=== PATIENT | female | born 1975 | race Caucasian/White ===

== ENCOUNTER → 2016-05-11 | Outpatient (CLI) | payer MEDICAID ==
[~2016-05-11] MED LIST: ABILIFY5 MG PO; ADDERALL15 MG PO; ADDERALL20 MG PO; ADIPEX-P37.5 MG PO; AMBIEN 5MG TABLE5 MG PO; AMITIZA 8MCG8 MCG PO; AMITIZA24 MCG PO; AMITRIPTYLINE H25 M1 PO; AMOXICILLIN 50500 MG PO; ATIVAN 0.50.5 MG/TAB PO; BENTYL 10MG10 MG/CAP PO; BIO-TN500 MCG PO; BIOTENE PO; BUMEX2 MG PO; CELEXA 20MG20 MG/TAB PO; CELEXA20 MG PO; CELEXA40 MG PO; CEPHALEXIN500 M1 PO; CEPHULAC10 GM/15 M PO; CHANTIX 0.5MG0.5 MG PO; CHANTIX 1MG1 MG PO; CHANTIX1 MG PO; CLONAZEPAM1 M1 PO; COLACE 100100 MG/CAP PO; COLON HERBAL CL1 CAP PO; CONCERTA ER PO; COUMADIN 2MG2 MG/TAB PO; COUMADIN 3MG3 MG/TAB PO; DEPAKOTE ER 50500 MG PO; DESYREL 100MG100 MG PO; DICLOFENAC SOD100 M2 PO; DICYCLOMINE HCL10 MG PO; EFFEXOR 75M75 MG/TAB PO; EFFEXOR-XR150 MG PO; ESTRACE 1MG1 MG/TAB PO; FLEXERIL10 MG PO; FLOMAX 0.40.4 MG/CAP PO; GLUCOPHAGE500 MG/TAB PO; IMITREX ST6 MG/0.5 M SC; IRON325 M2 PO; KLONOPIN 1MG1 MG PO; KLOR-CON 1010 MEQ PO; LACTULOSE SYRUP1 ML PO; LAMICTAL 100MG100 MG PO; LATUDA80 MG PO; LINZESS PO; LINZESS290CAP PO; LORTAB 10/500 51 TAB PO; LOVENOX 100100 MG/ML SQ; LYRICA; MAG-OX 400400 MG/TAB PO; MAGCITRATE PO; NEURONTIN300 MG/CAP PO; NORCO 325 MG-101 TAB PO; ONZETRA XSAIL11 MG; ONZETRA XSAIL11 MG NS; OXCARBAZEPINE300 MG PO; PERCOCET 325 MG1 TA3 PO; PHENERGAN 25 TA25 MG PO; PREDNISONE10 MG PO; PREMARIN 0.9MG0.9 MG PO; PREMARIN0.9 MG PO; PREVACID 30MG30 M1 PO; PREVACID SOLUTA30 M2 PO; PROBIOTICA100 Millio; PROVENTIL 2MG TA2 MG PO; PROVENTIL0.09 MG/A1 IH; PROZAC 10MG10 MG PO; RELPAX 40MG TAB40 MG PO; REMERON 15M15 MG/TA1 PO; RT ADVAIR 228 DISKUS IH; SAPHRIS10 MG SL; SEPTRA DS 8001 TAB PO; SINGULAIR 110 MG/TAB PO; SINGULAIR10 MG PO; TIZANIDINE; TOPAMAX 100MG100 M1 PO; TOPAMAX50 MG PO; TRAZADONE HYDR100 MG PO; TRILEPTAL 300M300 MG PO; TYLENOL EXTRA500 M1 PO; ULTRAM 50MG TAB50 MG PO; VITAMIN C500 MG PO; VYVANSE70 MG PO; ZANAFLEX 4MG TAB4 MG PO; ZANTAC 300300 MG PO; ZOFRAN4 M1 PO; ZOFRAN8 MG PO; ZYRTEC 10MG10 MG PO; [UNRECOGNIZED DRUG - OTHER]
== END ==
LOC: COL.RAD 10:17
DX: R10.32 Left lower quadrant pain (principal); D72.829 Elevated white blood cell count, unspecified; Z90.710 Acquired absence of both cervix and uterus
CPT/HCPCS: Q9967

== ENCOUNTER 2016-06-21 18:13 | Emergency (ER) | payer MEDICAID ==
[~2016-06-21] VITALS: Ht 157.5 cm; Wt 89.5 kg
[~2016-06-21 18:13] MED LIST changes: -AMITIZA 8MCG8 MCG PO; -EFFEXOR-XR150 MG PO; -FLOMAX 0.40.4 MG/CAP PO; -IRON325 M2 PO; -ONZETRA XSAIL11 MG NS; -PERCOCET 325 MG1 TA3 PO; -PREDNISONE10 MG PO; -ULTRAM 50MG TAB50 MG PO; -VITAMIN C500 MG PO; -ZOFRAN8 MG PO
[2016-06-21 18:16] VITALS: TEMP 97.8
[2016-06-21 19:26] VITALS: BP 118/68; PULSE 116
== END 2016-06-21 19:40 | disposition home or self-care (01) ==
LOC: COL.ER 18:13
DX: M54.6 Pain in thoracic spine (principal); G89.29 Other chronic pain; R00.0 Tachycardia, unspecified
CPT/HCPCS: J1170; J2550

== ENCOUNTER 2016-07-08 12:47 | Emergency (ER) | payer MEDICAID ==
[~2016-07-08] VITALS: Ht 157.5 cm; Wt 87.7 kg
[2016-07-08 12:51] VITALS: TEMP 97.6
[2016-07-08 15:06] LABS: HEMATOCRIT 41.9 % (37.0-47.0); HEMOGLOBIN 13.8 g/dl (12.5-16.0); MEAN CELL VOLUME 97 fl (80.0-100.0); MEAN CORPUSCULAR HEMOGLOBIN 32 pg (27.0-31.0); MEAN CORPUSCULAR HGB CONC 33 g/dl (33.0-37.0); MEAN PLATELET VOLUME 10.2 fl (7.4-10.4); PLATELET COUNT 433 K/mm3 (130-400); RED BLOOD COUNT 4.31 M/mm3 (4.10-5.30); REDCELL DISTRIBUTION WIDTH-CV 14.5 % (11.5-14.5); WHITE BLOOD COUNT 15.3 K/mm3 (4.8-10.8)
[2016-07-08 15:13] LABS: PH 6 (5-8); SQUAMOUS EPITHELIAL 0-2 /hpf; URINE APPEARANCE Clear; URINE BACTERIA None Seen /hpf; URINE BILIRUBIN Negative (NEGATIVE); URINE BLOOD 2+ (NEGATIVE); URINE COLOR Colorless; URINE GLUCOSE Negative (NEGATIVE); URINE KETONE Negative (NEGATIVE); URINE UROBILINOGEN Negative (NEGATIVE); URINE WBC 0-2 /hpf
[2016-07-08 15:17] LABS: ADJUSTED CALCIUM 9.3 mg/dL (8.4-10.2); ALBUMIN 4.6 gm/dL (3.5-5.0); BILIRUBIN,TOTAL 0.6 mg/dL (0.0-1.0); CALCIUM 9.8 mg/dL (8.4-10.2); CREATININE, serum 1.01 mg/dL (0.52-1.25); POTASSIUM 3.7 mmol/L (3.4-5.0); TOTAL PROTEIN 7.9 gm/dL (6.4-8.2)
[2016-07-08 15:20] LABS: ADD PATHOLOGY DIFF REVIEW NO
[2016-07-08 15:31] LABS: BAND 5 % (0-10); NEUTROPHILS 55 % (42.0-75.2); TOTAL CELLS COUNTED 100
[2016-07-08 15:32] LABS: ANISOCYTOSIS 1+; PLATELET ESTIMATE INCREASED (NORMAL)
[2016-07-08] MEDS ORDERED: FLOMAX 0.40.4 MG/CAP PO (17:14)
[2016-07-08] MEDS ORDERED: PERCOCET 325 MG1 TA3 PO (17:14)
[2016-07-08 18:13] VITALS: BP 119/69; PULSE 96
== END 2016-07-08 18:16 | disposition home or self-care (01) ==
LOC: COL.ER 12:47
PROVIDERS: Emergency Medicine
DX: N20.0 Calculus of kidney (principal)
CPT/HCPCS: J1170; J1885; J2405; J2550; J7030; Q9967

== ENCOUNTER 2016-07-11 17:23 | Emergency (ER) | payer MEDICAID ==
[~2016-07-11] VITALS: Ht 157.5 cm; Wt 90.0 kg
[~2016-07-11 17:23] MED LIST changes: +FLOMAX 0.40.4 MG/CAP PO; +PERCOCET 325 MG1 TA3 PO
[2016-07-11 17:26] VITALS: TEMP 98.3
[2016-07-11 17:58] LABS: BASO # 0.1 (0.0-0.2); BASO % 0.4 % (0.0-2.0); EOS % 0.2 % (0-4.0); GRAN # 8.4 (1.4-6.5); GRAN % 65.7 % (42.2-75.2); HEMATOCRIT 41.2 % (37.0-47.0); LYMPH # 3.3 (1.2-3.4); LYMPH % 25.6 % (20.0-51.0); MEAN CELL VOLUME 95 fl (80.0-100.0); MEAN CORPUSCULAR HEMOGLOBIN 32 pg (27.0-31.0); MEAN CORPUSCULAR HGB CONC 34 g/dl (33.0-37.0); MEAN PLATELET VOLUME 9.8 fl (7.4-10.4); MONO # 0.9 (0.1-0.6); MONO % 6.6 % (1.7-9.3); PLATELET COUNT 455 K/mm3 (130-400); RED BLOOD COUNT 4.33 M/mm3 (4.10-5.30); REDCELL DISTRIBUTION WIDTH-CV 14.3 % (11.5-14.5); WHITE BLOOD COUNT 12.8 K/mm3 (4.8-10.8)
[2016-07-11 18:06] LABS: ADJUSTED CALCIUM 9.7 mg/dL (8.4-10.2); ALBUMIN 4.5 gm/dL (3.5-5.0); BILIRUBIN,TOTAL 0.4 mg/dL (0.0-1.0); CALCIUM 10.1 mg/dL (8.4-10.2); CREATININE, serum 0.74 mg/dL (0.52-1.25); POTASSIUM 3.5 mmol/L (3.4-5.0); TOTAL PROTEIN 7.8 gm/dL (6.4-8.2)
[2016-07-11] MEDS ORDERED: EFFEXOR-XR150 MG PO (18:13)
[2016-07-11 19:29] LABS: PH 6 (5-8); SQUAMOUS EPITHELIAL 0-2 /hpf; URINE APPEARANCE Clear; URINE BACTERIA None Seen /hpf; URINE BILIRUBIN Negative (NEGATIVE); URINE BLOOD Negative (NEGATIVE); URINE COLOR Straw; URINE GLUCOSE Negative (NEGATIVE); URINE KETONE Negative (NEGATIVE); URINE RBC 0-2 /hpf; URINE UROBILINOGEN Negative (NEGATIVE)
[2016-07-11 20:04] VITALS: BP 129/89; PULSE 97
== END 2016-07-11 20:09 | disposition home or self-care (01) ==
LOC: COL.ER 17:23
PROVIDERS: Family Medicine
DX: N20.1 Calculus of ureter (principal); Z87.442 Personal history of urinary calculi
CPT/HCPCS: J1170; J2550; J7030

== ENCOUNTER 2016-07-13 15:46 | Observation (INO) | payer MEDICAID ==
[2016-07-13] VITALS (7 sets, daily range): BP systolic 102–140; BP diastolic 57–89; PULSE 84–105; TEMP 97.8–98.3
[~2016-07-13] VITALS: Ht 157.5 cm; Wt 90.9 kg
[~2016-07-13 15:46] MED LIST changes: +EFFEXOR-XR150 MG PO
[2016-07-13] MEDS ORDERED: VITAMIN C500 MG PO (17:21)
[2016-07-13] MEDS ORDERED: PREDNISONE10 MG PO ×2 (17:22→19:44)
[2016-07-13] MEDS ORDERED: IRON325 M2 PO (17:22)
[2016-07-13] MEDS ORDERED: ATIVAN 0.50.5 MG/TAB PO (18:28)
[2016-07-14] VITALS (13 sets, daily range): BP systolic 92–108; BP diastolic 58–81; PULSE 72–99; TEMP 97.3–97.8
== END 2016-07-14 19:10 | disposition home or self-care (01) ==
LOC: SURG 15:46 → EDSTATUS 07-14 16:45 → SDCO 07-14 16:45 → SURG 07-14 19:10
DX: N35.9 Urethral stricture, unspecified (principal); R10.12 Left upper quadrant pain
CPT/HCPCS: G0378; J0690; J1885; J2250; J2270; J2405; J2704; J3010; J7030; J7120; J7512; Q9967

== ENCOUNTER 2016-08-11 18:00 | Outpatient (RCR) | payer MEDICAID ==
[2016-06-15 16:31] VITALS: BP 125/83; PULSE 103; TEMP 97.5
[~2016-08-11] VITALS: Ht 157.5 cm; Wt 87.7 kg
[2016-08-11 16:09] VITALS: BP 117/80; PULSE 96; TEMP 97.4
[~2016-08-11 18:00] MED LIST changes: +IRON325 M2 PO; +PREDNISONE10 MG PO; +VITAMIN C500 MG PO
== END 2016-09-13 | disposition still patient (30) ==
LOC: EUO
DX: G43.809 Other migraine, not intractable, without status migrainosus (principal); G89.29 Other chronic pain
CPT/HCPCS: J1170; J2550

== ENCOUNTER → 2016-08-16 | Outpatient (REF) ==
[~2016-08-16] MED LIST changes: +AMITIZA 8MCG8 MCG PO; +ONZETRA XSAIL11 MG NS; +ULTRAM 50MG TAB50 MG PO; +ZOFRAN8 MG PO
== END ==
LOC: ZMSC 12:50
DX: Z01.89 Encounter for other specified special examinations (principal)

== ENCOUNTER → 2016-09-04 | Outpatient (CLI) | payer MEDICAID | LOC: MHCPAIN 09:17 | DX: G89.29 Other chronic pain (principal); M47.817 Spondylosis without myelopathy or radiculopathy, lumbosacral region; M54.16 Radiculopathy, lumbar region; M53.3 Sacrococcygeal disorders, not elsewhere classified; M54.2 Cervicalgia | CPT/HCPCS: G0463 ==

== ENCOUNTER 2016-10-26 11:19 | Emergency (ER) | payer MEDICAID ==
[~2016-10-26] VITALS: Ht 157.5 cm; Wt 92.3 kg
[~2016-10-26 11:19] MED LIST changes: -AMITIZA 8MCG8 MCG PO; -ONZETRA XSAIL11 MG NS; -ULTRAM 50MG TAB50 MG PO; -ZOFRAN8 MG PO
[2016-10-26 11:32] VITALS: TEMP 97.8
[2016-10-26 12:18] LABS: BASO % 0.3 % (0.0-2.0); EOS % 0.1 % (0-4.0); GRAN # 9.7 (1.4-6.5); GRAN % 71.1 % (42.2-75.2); HEMATOCRIT 41.8 % (37.0-47.0); LYMPH # 2.8 (1.2-3.4); LYMPH % 20.2 % (20.0-51.0); MEAN CELL VOLUME 95 fl (80.0-100.0); MEAN CORPUSCULAR HEMOGLOBIN 32 pg (27.0-31.0); MEAN CORPUSCULAR HGB CONC 34 g/dl (33.0-37.0); MEAN PLATELET VOLUME 9.6 fl (7.4-10.4); MONO % 7.4 % (1.7-9.3); PLATELET COUNT 401 K/mm3 (130-400); RED BLOOD COUNT 4.42 M/mm3 (4.10-5.30); REDCELL DISTRIBUTION WIDTH-CV 13.1 % (11.5-14.5); WHITE BLOOD COUNT 13.7 K/mm3 (4.8-10.8)
[2016-10-26] MEDS ORDERED: AMOXICILLIN 50500 MG PO (12:18)
[2016-10-26 12:33] LABS: ADJUSTED CALCIUM 9.2 mg/dL (8.4-10.2); ALBUMIN 4.4 gm/dL (3.5-5.0); BILIRUBIN,TOTAL 0.5 mg/dL (0.0-1.0); CALCIUM 9.5 mg/dL (8.4-10.2); CREATININE, serum 0.84 mg/dL (0.52-1.25); POTASSIUM 3.6 mmol/L (3.4-5.0); TOTAL PROTEIN 7.9 gm/dL (6.4-8.2)
[2016-10-26 13:32] LABS: PH 7 (5-8); SQUAMOUS EPITHELIAL None Seen /hpf; URINE APPEARANCE Clear; URINE BACTERIA None Seen /hpf; URINE BILIRUBIN Negative (NEGATIVE); URINE BLOOD 2+ (NEGATIVE); URINE COLOR Straw; URINE GLUCOSE Negative (NEGATIVE); URINE KETONE Negative (NEGATIVE); URINE RBC 0-2 /hpf; URINE UROBILINOGEN Negative (NEGATIVE)
[2016-10-26] MEDS ORDERED: ZOFRAN8 MG PO (14:06)
[2016-10-26] MEDS ORDERED: ULTRAM 50MG TAB50 MG PO (14:06)
[2016-10-26] MEDS ORDERED: FLOMAX 0.40.4 MG/CAP PO (14:06)
[2016-10-26 14:09] VITALS: BP 103/72; PULSE 96
== END 2016-10-26 14:24 | disposition home or self-care (01) ==
LOC: COL.ER 11:19
PROVIDERS: Emergency Medicine
DX: N13.2 Hydronephrosis with renal and ureteral calculous obstruction (principal); Z87.442 Personal history of urinary calculi; F32.9 Major depressive disorder, single episode, unspecified
CPT/HCPCS: J1170; J1885; J2405; J2550; J7030; Q9967

== ENCOUNTER 2016-11-03 11:15 | Outpatient (RCR) | payer MEDICAID ==
[~2016-11-03 11:15] MED LIST changes: +ULTRAM 50MG TAB50 MG PO; +ZOFRAN8 MG PO
[2016-11-05] MEDS ORDERED: AMITIZA 8MCG8 MCG PO (15:35)
[2016-11-05] MEDS ORDERED: ONZETRA XSAIL11 MG NS (15:46)
[2016-11-05] MEDS ORDERED: NEURONTIN300 MG/CAP PO (15:47)
== END 2016-11-12 17:22 | disposition still patient (30) ==
LOC: WSPT 11:15
DX: M47.896 Other spondylosis, lumbar region (principal)
CPT/HCPCS: G0283-GP

== ENCOUNTER 2016-11-05 14:33 | Observation (INO) | payer MEDICAID ==
[~2016-11-05] VITALS: Ht 157.5 cm; Wt 93.7 kg
[2016-11-05 14:44] VITALS: BP 126/97; PULSE 99; TEMP 97.9
[2016-11-05] MEDS ORDERED: AMITIZA 8MCG8 MCG PO (15:35)
[2016-11-05] MEDS ORDERED: ONZETRA XSAIL11 MG NS (15:46)
[2016-11-05] MEDS ORDERED: NEURONTIN300 MG/CAP PO (15:47)
[2016-11-05 19:23] VITALS: BP 111/67; PULSE 84; TEMP 97.7
[2016-11-05 21:44] VITALS: BP 112/67; PULSE 81; TEMP 97.9
[2016-11-06] VITALS (11 sets, daily range): BP systolic 90–120; BP diastolic 53–90; PULSE 84–108; TEMP 97–98.7
== END 2016-11-06 13:46 | disposition home or self-care (01) ==
LOC: SURG 14:33
DX: N13.30 Unspecified hydronephrosis (principal); R10.32 Left lower quadrant pain; R10.2 Pelvic and perineal pain; Z87.442 Personal history of urinary calculi; Z82.49 Family history of ischemic heart disease and other diseases of the circulatory system; J45.909 Unspecified asthma, uncomplicated; R25.1 Tremor, unspecified; M19.90 Unspecified osteoarthritis, unspecified site; D64.9 Anemia, unspecified; F32.9 Major depressive disorder, single episode, unspecified; F41.9 Anxiety disorder, unspecified; R20.9 Unspecified disturbances of skin sensation; K21.9 Gastro-esophageal reflux disease without esophagitis; R51 Headache; G43.909 Migraine, unspecified, not intractable, without status migrainosus; G47.33 Obstructive sleep apnea (adult) (pediatric); G89.29 Other chronic pain; Z86.711 Personal history of pulmonary embolism; Z86.14 Personal history of Methicillin resistant Staphylococcus aureus infection; M79.7 Fibromyalgia
CPT/HCPCS: C1769; C1894; C2617; G0378; G0379; J0690; J1100; J1170; J1885; J2270; J2405; J2704; J3010; J7030; J7120; Q9967

== ENCOUNTER 2016-11-11 20:24 | Emergency (ER) | payer MEDICAID ==
[~2016-11-11] VITALS: Ht 157.5 cm; Wt 95.4 kg
[~2016-11-11 20:24] MED LIST changes: +AMITIZA 8MCG8 MCG PO; +ONZETRA XSAIL11 MG NS
[2016-11-11 20:27] VITALS: TEMP 97.4
[2016-11-11 21:23] LABS: BASO # 0.1 (0.0-0.2); BASO % 0.4 % (0.0-2.0); EOS # 0.1 (0.0-0.7); EOS % 0.5 % (0-4.0); GRAN # 8.1 (1.4-6.5); GRAN % 57.6 % (42.2-75.2); HEMATOCRIT 39.7 % (37.0-47.0); HEMOGLOBIN 13.2 g/dl (12.5-16.0); LYMPH # 4.1 (1.2-3.4); LYMPH % 29.2 % (20.0-51.0); MEAN CELL VOLUME 96 fl (80.0-100.0); MEAN CORPUSCULAR HEMOGLOBIN 32 pg (27.0-31.0); MEAN CORPUSCULAR HGB CONC 33 g/dl (33.0-37.0); MEAN PLATELET VOLUME 9.8 fl (7.4-10.4); MONO # 1.3 (0.1-0.6); MONO % 9.6 % (1.7-9.3); PLATELET COUNT 467 K/mm3 (130-400); RED BLOOD COUNT 4.12 M/mm3 (4.10-5.30)
[2016-11-11 21:29] LABS: ADJUSTED CALCIUM 9.8 mg/dL (8.4-10.2); BILIRUBIN,TOTAL 0.4 mg/dL (0.0-1.0); CALCIUM 9.8 mg/dL (8.4-10.2); CREATININE, serum 0.81 mg/dL (0.52-1.25); POTASSIUM 3.7 mmol/L (3.4-5.0); TOTAL PROTEIN 7.1 gm/dL (6.4-8.2)
[2016-11-11 21:38] LABS: ADD PATHOLOGY DIFF REVIEW NO
[2016-11-11 21:46] LABS: BAND 6 % (0-10); BASOPHIL 1 % (0-2); EOSINOPHIL 1 % (0-4); METAMYELOCYTE 1 % (0-0); MYELOCYTE 1 % (0-0); NEUTROPHILS 47 % (42.0-75.2); TOTAL CELLS COUNTED 100
[2016-11-11 21:47] LABS: PLATELET ESTIMATE INCREASED (NORMAL)
[2016-11-11 23:06] LABS: PH 6 (5-8); SQUAMOUS EPITHELIAL 0-2 /hpf; URINE APPEARANCE Hazy; URINE BACTERIA Rare /hpf; URINE BILIRUBIN Negative (NEGATIVE); URINE BLOOD 3+ (NEGATIVE); URINE COLOR Amber; URINE GLUCOSE Negative (NEGATIVE); URINE KETONE Negative (NEGATIVE); URINE RBC 20-50 /hpf; URINE UROBILINOGEN >=4.0 mg/dL (NEGATIVE); URINE WBC 20-50 /hpf
[2016-11-11 23:31] VITALS: BP 102/58; PULSE 101
== END 2016-11-11 23:15 | disposition home or self-care (01) ==
LOC: COL.ER 20:24
PROVIDERS: Family Medicine
DX: N20.1 Calculus of ureter (principal); Z98.890 Other specified postprocedural states; Z87.442 Personal history of urinary calculi; R00.0 Tachycardia, unspecified; E11.9 Type 2 diabetes mellitus without complications; G43.909 Migraine, unspecified, not intractable, without status migrainosus; F41.9 Anxiety disorder, unspecified; Z79.84 Long term (current) use of oral hypoglycemic drugs
CPT/HCPCS: J2270; J2405; J7030

== ENCOUNTER → 2016-11-30 | Outpatient (CLI) | payer MEDICAID | END | disposition home or self-care (01) | LOC: COL.RAD 13:44 | DX: R30.0 Dysuria (principal); R10.12 Left upper quadrant pain; Z87.442 Personal history of urinary calculi | CPT/HCPCS: Q9967 ==

== ENCOUNTER 2016-12-07 17:45 | Emergency (ER) | payer MEDICAID ==
[~2016-12-07] VITALS: Ht 157.5 cm; Wt 94.5 kg
[2016-12-07 17:50] VITALS: TEMP 97.9
[2016-12-07 20:16] LABS: BASO # 0.1 (0.0-0.2); BASO % 0.5 % (0.0-2.0); EOS # 0.1 (0.0-0.7); EOS % 0.6 % (0-4.0); GRAN # 7.7 (1.4-6.5); HEMATOCRIT 39.4 % (37.0-47.0); HEMOGLOBIN 13.1 g/dl (12.5-16.0); LYMPH # 5.8 (1.2-3.4); LYMPH % 38.3 % (20.0-51.0); MEAN CELL VOLUME 97 fl (80.0-100.0); MEAN CORPUSCULAR HEMOGLOBIN 32 pg (27.0-31.0); MEAN CORPUSCULAR HGB CONC 33 g/dl (33.0-37.0); MEAN PLATELET VOLUME 9.8 fl (7.4-10.4); MONO # 1.3 (0.1-0.6); MONO % 8.3 % (1.7-9.3); PLATELET COUNT 382 K/mm3 (130-400); RED BLOOD COUNT 4.06 M/mm3 (4.10-5.30); REDCELL DISTRIBUTION WIDTH-CV 13.5 % (11.5-14.5); WHITE BLOOD COUNT 15.1 K/mm3 (4.8-10.8)
[2016-12-07 20:24] LABS: CALCIUM 9.2 mg/dL (8.4-10.2); CREATININE, serum 0.91 mg/dL (0.52-1.25); POTASSIUM 3.3 mmol/L (3.4-5.0)
[2016-12-07 20:29] LABS: PH 5 (5-8); SQUAMOUS EPITHELIAL 0-2 /hpf; URINE APPEARANCE Hazy; URINE BACTERIA None Seen /hpf; URINE BILIRUBIN Negative (NEGATIVE); URINE BLOOD Negative (NEGATIVE); URINE COLOR Amber; URINE GLUCOSE Negative (NEGATIVE); URINE KETONE Negative (NEGATIVE); URINE UROBILINOGEN >=4.0 mg/dL (NEGATIVE)
[2016-12-07 21:59] VITALS: PULSE 101
== END 2016-12-07 22:02 | disposition home or self-care (01) ==
LOC: COL.ER 17:45
PROVIDERS: Physician Assistant
DX: R10.9 Unspecified abdominal pain (principal); K21.9 Gastro-esophageal reflux disease without esophagitis; F32.9 Major depressive disorder, single episode, unspecified; F25.9 Schizoaffective disorder, unspecified; F40.00 Agoraphobia, unspecified; Z32.02 Encounter for pregnancy test, result negative; Z79.84 Long term (current) use of oral hypoglycemic drugs
CPT/HCPCS: J1170; J2405; J7030

== ENCOUNTER → 2016-12-11 | Outpatient (CLI) | payer MEDICAID | LOC: MHCPAIN 09:20 | DX: G89.29 Other chronic pain (principal); M79.1 Myalgia; M47.817 Spondylosis without myelopathy or radiculopathy, lumbosacral region | CPT/HCPCS: G0463 ==

== ENCOUNTER → 2016-12-15 | Outpatient (CLI) | payer MEDICAID | LOC: MHCPAIN 07:36 | DX: M79.1 Myalgia (principal) | CPT/HCPCS: J1040 ==

== ENCOUNTER 2017-01-27 18:01 | Day surgery (SDC) | payer MEDICAID ==
[~2017-01-27] VITALS: Ht 157.5 cm; Wt 95.9 kg
[2017-01-27 18:17] VITALS: BP 141/97; PULSE 101; TEMP 98.4
[2017-01-27 18:43] VITALS: BP 141/97; PULSE 101; TEMP 98.4
[2017-01-27 22:32] VITALS: BP 106/68; PULSE 80; TEMP 97.8
[2017-01-28] VITALS (10 sets, daily range): BP systolic 98–116; BP diastolic 63–80; PULSE 62–102; TEMP 97.5–97.7
== END 2017-01-28 11:55 | disposition home or self-care (01) ==
LOC: SDCO 18:01 → SURG 18:01 → SDCO 01-28 11:55
DX: N28.89 Other specified disorders of kidney and ureter (principal); J45.909 Unspecified asthma, uncomplicated; G47.33 Obstructive sleep apnea (adult) (pediatric); F32.9 Major depressive disorder, single episode, unspecified; F41.9 Anxiety disorder, unspecified; D64.9 Anemia, unspecified; F17.210 Nicotine dependence, cigarettes, uncomplicated; Z90.721 Acquired absence of ovaries, unilateral; Z90.710 Acquired absence of both cervix and uterus; Z82.49 Family history of ischemic heart disease and other diseases of the circulatory system; Z83.3 Family history of diabetes mellitus
CPT/HCPCS: OP; C1726; C1769; C2617; G0378; G0379; J0690; J1100; J1720; J2270; J2405; J2704; J3010; J7030; Q9967

== ENCOUNTER 2017-03-08 15:39 | Emergency (ER) | payer MEDICAID ==
[~2017-03-08] VITALS: Ht 157.5 cm; Wt 93.6 kg
[2017-03-08 15:49] VITALS: TEMP 98.1
[2017-03-08 17:08] LABS: BASO % 0.3 % (0.0-2.0); EOS % 0.3 % (0-4.0); GRAN # 5.4 (1.4-6.5); HEMATOCRIT 45.7 % (37.0-47.0); HEMOGLOBIN 15.7 g/dl (12.5-16.0); LYMPH # 2.5 (1.2-3.4); LYMPH % 28.6 % (20.0-51.0); MEAN CELL VOLUME 96 fl (80.0-100.0); MEAN CORPUSCULAR HEMOGLOBIN 33 pg (27.0-31.0); MEAN CORPUSCULAR HGB CONC 34 g/dl (33.0-37.0); MEAN PLATELET VOLUME 10.2 fl (7.4-10.4); MONO # 0.7 (0.1-0.6); MONO % 7.7 % (1.7-9.3); PLATELET COUNT 316 K/mm3 (130-400); RED BLOOD COUNT 4.78 M/mm3 (4.10-5.30); WHITE BLOOD COUNT 8.8 K/mm3 (4.8-10.8)
[2017-03-08 17:12] LABS: COLLECTION METHOD CLEAN CATCH
[2017-03-08 17:14] LABS: ADJUSTED CALCIUM 9.4 mg/dL (8.4-10.2); ALBUMIN 4.9 gm/dL (3.5-5.0); BILIRUBIN,TOTAL 0.5 mg/dL (0.0-1.0); CALCIUM 10.1 mg/dL (8.4-10.2); CREATININE, serum 1.06 mg/dL (0.52-1.25); POTASSIUM 3.9 mmol/L (3.4-5.0); TOTAL PROTEIN 8.1 gm/dL (6.4-8.2)
[2017-03-08 17:18] LABS: HYALINE CAST >12 /lpf; MUCOUS Present /lpf; PH 5 (5-8); URINE APPEARANCE Clear; URINE BACTERIA None Seen /hpf; URINE BILIRUBIN Negative (NEGATIVE); URINE BLOOD Negative (NEGATIVE); URINE COLOR Yellow; URINE GLUCOSE Negative (NEGATIVE); URINE KETONE Negative (NEGATIVE); URINE LEUKOCYTE ESTERASE Negative (NEGATIVE); URINE PROTEIN(semi-quant) Negative (NEGATIVE); URINE RBC 0-2 /hpf; URINE UROBILINOGEN Negative (NEGATIVE); URINE WBC 0-2 /hpf
[2017-03-08 18:10] VITALS: BP 111/72; PULSE 94
== END 2017-03-08 18:10 | disposition home or self-care (01) ==
LOC: COL.ER 15:39
PROVIDERS: Emergency Medicine
DX: G43.909 Migraine, unspecified, not intractable, without status migrainosus (principal); F32.9 Major depressive disorder, single episode, unspecified; J45.909 Unspecified asthma, uncomplicated; F17.210 Nicotine dependence, cigarettes, uncomplicated; Z90.710 Acquired absence of both cervix and uterus; Z90.89 Acquired absence of other organs; Z87.442 Personal history of urinary calculi; Z79.84 Long term (current) use of oral hypoglycemic drugs
CPT/HCPCS: J1170; J2550; J3030

== ENCOUNTER → 2017-03-16 | Outpatient (CLI) | payer MEDICAID | LOC: MHCPAIN 07:50 | DX: G89.29 Other chronic pain (principal); M47.817 Spondylosis without myelopathy or radiculopathy, lumbosacral region; M79.1 Myalgia; Z87.891 Personal history of nicotine dependence | CPT/HCPCS: G0463 ==

== ENCOUNTER → 2017-03-22 | Outpatient (CLI) | payer MEDICAID | LOC: COL.RAD 12:19 | DX: R10.32 Left lower quadrant pain (principal); R10.2 Pelvic and perineal pain; Z96.0 Presence of urogenital implants | CPT/HCPCS: A9562; J1940 ==

== ENCOUNTER 2017-05-31 22:19 | Emergency (ER) | payer MEDICAID ==
[~2017-05-31] VITALS: Ht 157.5 cm; Wt 95.5 kg
[2017-05-31 22:21] VITALS: TEMP 97.6
[2017-05-31] MEDS ORDERED: TOPAMAX 100MG100 M1 PO (23:04)
[2017-05-31] MEDS ORDERED: VITAMIN D 1001000 IU PO (23:10)
[2017-06-01 00:30] VITALS: BP 109/72; PULSE 92
== END 2017-06-01 00:30 | disposition home or self-care (01) ==
LOC: COL.ER 22:19
DX: G43.909 Migraine, unspecified, not intractable, without status migrainosus (principal); J45.909 Unspecified asthma, uncomplicated; F31.9 Bipolar disorder, unspecified; F25.9 Schizoaffective disorder, unspecified; F41.9 Anxiety disorder, unspecified; K58.9 Irritable bowel syndrome, unspecified; Z87.442 Personal history of urinary calculi; Z87.891 Personal history of nicotine dependence; Z79.84 Long term (current) use of oral hypoglycemic drugs; Z79.52 Long term (current) use of systemic steroids
CPT/HCPCS: J1170; J1200; J2550

== ENCOUNTER → 2017-06-08 | Outpatient (CLI) | payer MEDICAID ==
[~2017-06-08] MED LIST changes: +VITAMIN D 1001000 IU PO
== END ==
LOC: MHCPAIN 10:34
DX: G89.29 Other chronic pain (principal); M79.1 Myalgia
CPT/HCPCS: G0463

== ENCOUNTER → 2017-06-14 | Outpatient (CLI) | payer MEDICAID | LOC: MHCPAIN 10:24 | DX: M79.1 Myalgia (principal) | CPT/HCPCS: J1040 ==

== ENCOUNTER → 2017-08-10 | Outpatient (RCR) | payer MEDICAID ==
[2017-08-10 15:28] VITALS: BP 118/52; PULSE 98; TEMP 98
== END | disposition home or self-care (01) ==
LOC: EUO
DX: G43.709 Chronic migraine without aura, not intractable, without status migrainosus (principal)
CPT/HCPCS: J1170; J2550

== ENCOUNTER 2017-08-23 14:58 | Emergency (ER) | payer MEDICAID ==
[~2017-08-23] VITALS: Ht 154.9 cm; Wt 95.9 kg
[2017-08-23 14:58] VITALS: TEMP 98.8
[~2017-08-23 14:58] MED LIST changes: +EFFEXOR XR37.5 MG/CA PO; -EFFEXOR-XR150 MG PO
[2017-08-23 16:37] LABS: BASO % 0.2 % (0.0-2.0); EOS % 0.1 % (0-4.0); GRAN % 71.9 % (42.2-75.2); HEMATOCRIT 39.9 % (37.0-47.0); HEMOGLOBIN 13.5 g/dl (12.5-16.0); LYMPH # 2.5 (1.2-3.4); LYMPH % 20.1 % (20.0-51.0); MEAN CELL VOLUME 95 fl (80.0-100.0); MEAN CORPUSCULAR HEMOGLOBIN 32 pg (27.0-31.0); MEAN CORPUSCULAR HGB CONC 34 g/dl (33.0-37.0); MEAN PLATELET VOLUME 9.6 fl (7.4-10.4); MONO # 0.8 (0.1-0.6); MONO % 6.4 % (1.7-9.3); PLATELET COUNT 423 K/mm3 (130-400); RED BLOOD COUNT 4.22 M/mm3 (4.10-5.30); REDCELL DISTRIBUTION WIDTH-CV 13.3 % (11.5-14.5)
[2017-08-23 16:44] LABS: CALCIUM 9.6 mg/dL (8.4-10.2); CREATININE, serum 0.99 mg/dL (0.52-1.25); POTASSIUM 3.4 mmol/L (3.4-5.0)
[2017-08-23 16:57] LABS: COLLECTION METHOD CLEAN CATCH
[2017-08-23 17:07] LABS: PH 7 (5-8); SQUAMOUS EPITHELIAL 0-2 /hpf; URINE APPEARANCE Clear; URINE BACTERIA None Seen /hpf; URINE BILIRUBIN Negative (NEGATIVE); URINE BLOOD Negative (NEGATIVE); URINE COLOR Yellow; URINE GLUCOSE Negative (NEGATIVE); URINE KETONE Negative (NEGATIVE); URINE LEUKOCYTE ESTERASE Negative (NEGATIVE); URINE NITRATE Negative (NEGATIVE); URINE PROTEIN(semi-quant) Negative (NEGATIVE); URINE RBC 0-2 /hpf; URINE UROBILINOGEN Negative (NEGATIVE)
[2017-08-23 17:16] LABS: TRICYCLIC ANTIDEPRESS URINE NEGATIVE
[2017-08-23] MEDS ORDERED: PHENERGAN 25 TA25 MG PO (17:38)
[2017-08-23] MEDS ORDERED: ONZETRA XSAIL11 MG NS (17:52)
[2017-08-23] MEDS ORDERED: AMITIZA 8MCG8 MCG PO (18:01)
[2017-08-23] MEDS ORDERED: ALBUTEROL0.83 MG/ML IH (18:02)
[2017-08-23] MEDS ORDERED: RT ADVAIR 228 DISKUS IH (18:03)
[2017-08-23] MEDS ORDERED: NATURAL IRON65 MG PO (18:03)
[2017-08-23] MEDS ORDERED: NATURE'S BLE1000 MCG PO (18:04)
[2017-08-23] MEDS ORDERED: PREDNISONE10 MG PO (18:04)
[2017-08-23] MEDS ORDERED: VITAMIN C500 MG PO (18:04)
[2017-08-23] MEDS ORDERED: CARAFATE 1GM1 G (18:05)
[2017-08-23 18:45] VITALS: BP 102/72; PULSE 80
== END 2017-08-23 18:45 | disposition home or self-care (01) ==
LOC: COL.ER 14:58
PROVIDERS: Emergency Medicine
DX: G43.909 Migraine, unspecified, not intractable, without status migrainosus (principal); R47.81 Slurred speech; F98.5 Adult onset fluency disorder; J45.909 Unspecified asthma, uncomplicated; F31.9 Bipolar disorder, unspecified; F25.9 Schizoaffective disorder, unspecified; F17.210 Nicotine dependence, cigarettes, uncomplicated; K58.9 Irritable bowel syndrome, unspecified; Z90.710 Acquired absence of both cervix and uterus
CPT/HCPCS: J1200; J1630; J2765; J7030

== ENCOUNTER 2017-09-03 15:20 | Emergency (ER) | payer MEDICAID ==
[~2017-09-03] VITALS: Ht 157.5 cm; Wt 95.9 kg
[~2017-09-03 15:20] MED LIST changes: +ALBUTEROL0.83 MG/ML IH; +CARAFATE 1GM1 G; +NATURAL IRON65 MG PO; +NATURE'S BLE1000 MCG PO
[2017-09-03 15:21] VITALS: TEMP 98.5
[2017-09-03 15:43] LABS: BASO # 0.1 (0.0-0.2); BASO % 0.4 % (0.0-2.0); EOS % 0.1 % (0-4.0); GRAN # 10.6 (1.4-6.5); GRAN % 83.4 % (42.2-75.2); HEMATOCRIT 41.5 % (37.0-47.0); LYMPH # 1.4 (1.2-3.4); LYMPH % 11.2 % (20.0-51.0); MEAN CELL VOLUME 95 fl (80.0-100.0); MEAN CORPUSCULAR HEMOGLOBIN 32 pg (27.0-31.0); MEAN CORPUSCULAR HGB CONC 34 g/dl (33.0-37.0); MEAN PLATELET VOLUME 9.8 fl (7.4-10.4); MONO # 0.5 (0.1-0.6); MONO % 3.7 % (1.7-9.3); PLATELET COUNT 500 K/mm3 (130-400); RED BLOOD COUNT 4.37 M/mm3 (4.10-5.30); REDCELL DISTRIBUTION WIDTH-CV 13.2 % (11.5-14.5)
[2017-09-03 15:59] LABS: ALANINE AMINOTRANSFERASE 26 U/L (9-52); ALBUMIN 4.4 gm/dL (3.5-5.0); ALKALINE PHOSPHATASE 102 U/L (50-136); ANION GAP 21 mmol/L (7-16); AST,SGOT 26 U/L (15-37); BILIRUBIN,TOTAL 0.5 mg/dL (0.0-1.0); BLOOD UREA NITROGEN 16 mg/dL (7-17); CALCIUM 10.4 mg/dL (8.4-10.2); CARBON DIOXIDE 19 mmol/L (22-30); CHLORIDE 104 mmol/L (98-107); CREATININE, serum 1.02 mg/dL (0.52-1.25); GLUCOSE 125 mg/dL (74-106); POTASSIUM 4.3 mmol/L (3.4-5.0); SODIUM 143 mmol/L (137-145); TOTAL PROTEIN 8.1 gm/dL (6.4-8.2)
[2017-09-03 16:04] LABS: ACETAMINOPHEN < 10 ug/mL (10-30); ALCOHOL(ethanol),MEDICAL < 10 mg/dL; SALICYLATE < 1.0 mg/dL
[2017-09-03] MEDS ORDERED: LAMICTAL200 MG PO (16:47)
[2017-09-03] MEDS ORDERED: COGENTIN 1MG1 MG/TAB PO (16:53)
[2017-09-03] MEDS ORDERED: IMITREX100 MG PO (16:54)
[2017-09-03] MEDS ORDERED: VALTREX1 GM PO (16:55)
[2017-09-03] MEDS ORDERED: BENADRYL25 M2 PO (16:56)
[2017-09-03] MEDS ORDERED: MELATONIN5 M1 SL (16:56)
[2017-09-03 17:44] LABS: COLLECTION METHOD CLEAN CATCH
[2017-09-03 17:51] LABS: PH 6 (5-8); SQUAMOUS EPITHELIAL 0-2 /hpf; URINE APPEARANCE Clear; URINE BACTERIA None Seen /hpf; URINE BILIRUBIN Negative (NEGATIVE); URINE BLOOD Negative (NEGATIVE); URINE COLOR Straw; URINE GLUCOSE Negative (NEGATIVE); URINE KETONE Negative (NEGATIVE); URINE LEUKOCYTE ESTERASE Negative (NEGATIVE); URINE NITRATE Negative (NEGATIVE); URINE PROTEIN(semi-quant) Negative (NEGATIVE); URINE RBC 0-2 /hpf; URINE UROBILINOGEN Negative (NEGATIVE)
[2017-09-03 17:56] LABS: TRICYCLIC ANTIDEPRESS URINE NEGATIVE
[2017-09-03 18:02] VITALS: BP 114/73; PULSE 111
[2017-09-03] MEDS ORDERED: ATARAX50 MG PO (18:05)
== END 2017-09-03 19:15 | disposition home or self-care (01) ==
LOC: COL.ER 15:20
PROVIDERS: Nurse Practitioner
DX: F41.9 Anxiety disorder, unspecified (principal); R25.1 Tremor, unspecified; F31.9 Bipolar disorder, unspecified; F25.9 Schizoaffective disorder, unspecified; F17.210 Nicotine dependence, cigarettes, uncomplicated
CPT/HCPCS: J1200; J1630; J2060; J2765; J7030

== ENCOUNTER 2017-09-08 14:05 | Emergency (ER) | payer MEDICAID ==
[~2017-09-08] VITALS: Ht 157.5 cm; Wt 95.5 kg
[~2017-09-08 14:05] MED LIST changes: +ATARAX50 MG PO; +BENADRYL25 M2 PO; +COGENTIN 1MG1 MG/TAB PO; +IMITREX100 MG PO; +LAMICTAL200 MG PO; +MELATONIN5 M1 SL; +VALTREX1 GM PO
[2017-09-08 14:07] VITALS: TEMP 98.2
[2017-09-08 15:00] LABS: BASO % 0.2 % (0.0-2.0); GRAN # 9.3 (1.4-6.5); GRAN % 79.3 % (42.2-75.2); HEMATOCRIT 40.5 % (37.0-47.0); HEMOGLOBIN 13.6 g/dl (12.5-16.0); LYMPH # 1.6 (1.2-3.4); MEAN CELL VOLUME 95 fl (80.0-100.0); MEAN CORPUSCULAR HEMOGLOBIN 32 pg (27.0-31.0); MEAN CORPUSCULAR HGB CONC 34 g/dl (33.0-37.0); MEAN PLATELET VOLUME 9.6 fl (7.4-10.4); MONO # 0.6 (0.1-0.6); MONO % 5.4 % (1.7-9.3); PLATELET COUNT 492 K/mm3 (130-400); RED BLOOD COUNT 4.27 M/mm3 (4.10-5.30); REDCELL DISTRIBUTION WIDTH-CV 13.5 % (11.5-14.5)
[2017-09-08 15:09] LABS: ALANINE AMINOTRANSFERASE 22 U/L (9-52); ALBUMIN 4.1 gm/dL (3.5-5.0); ALKALINE PHOSPHATASE 79 U/L (50-136); ANION GAP 14 mmol/L (7-16); AST,SGOT 22 U/L (15-37); BILIRUBIN,TOTAL 0.3 mg/dL (0.0-1.0); BLOOD UREA NITROGEN 10 mg/dL (7-17); CALCIUM 9.5 mg/dL (8.4-10.2); CARBON DIOXIDE 27 mmol/L (22-30); CHLORIDE 103 mmol/L (98-107); CREATININE, serum 0.83 mg/dL (0.52-1.25); GLUCOSE 143 mg/dL (74-106); POTASSIUM 3.5 mmol/L (3.4-5.0); SODIUM 144 mmol/L (137-145); TOTAL PROTEIN 7.7 gm/dL (6.4-8.2)
[2017-09-08 15:12] LABS: ACETAMINOPHEN < 10 ug/mL (10-30); ALCOHOL(ethanol),MEDICAL < 10 mg/dL; SALICYLATE < 1.0 mg/dL
[2017-09-08 15:34] LABS: COLLECTION METHOD CLEAN CATCH
[2017-09-08 15:40] LABS: PH 7 (5-8); SQUAMOUS EPITHELIAL 0-2 /hpf; URINE APPEARANCE Clear; URINE BACTERIA None Seen /hpf; URINE BILIRUBIN Negative (NEGATIVE); URINE BLOOD Negative (NEGATIVE); URINE COLOR Yellow; URINE GLUCOSE Negative (NEGATIVE); URINE KETONE Negative (NEGATIVE); URINE LEUKOCYTE ESTERASE Negative (NEGATIVE); URINE NITRATE Negative (NEGATIVE); URINE PROTEIN(semi-quant) Negative (NEGATIVE); URINE RBC 0-2 /hpf; URINE UROBILINOGEN Negative (NEGATIVE)
[2017-09-08 15:49] LABS: TRICYCLIC ANTIDEPRESS URINE NEGATIVE
[2017-09-08 22:41] VITALS: BP 110/80; PULSE 88
== END 2017-09-08 22:40 | disposition home or self-care (01) ==
LOC: COL.ER 14:05
PROVIDERS: Emergency Medicine
DX: F29 Unspecified psychosis not due to a substance or known physiological condition (principal); R56.9 Unspecified convulsions; F20.9 Schizophrenia, unspecified; F17.210 Nicotine dependence, cigarettes, uncomplicated; Z87.442 Personal history of urinary calculi; Z90.710 Acquired absence of both cervix and uterus
CPT/HCPCS: J1630; J7040

== ENCOUNTER 2017-10-06 10:43 | Emergency (ER) | payer MEDICAID ==
[~2017-10-06] VITALS: Ht 154.9 cm; Wt 100.0 kg
[2017-10-06 10:48] VITALS: TEMP 98.6
[2017-10-06 11:14] LABS: HEMATOCRIT 46.3 % (37.0-47.0); HEMOGLOBIN 15.1 g/dl (12.5-16.0); MEAN CELL VOLUME 97 fl (80.0-100.0); MEAN CORPUSCULAR HEMOGLOBIN 32 pg (27.0-31.0); MEAN CORPUSCULAR HGB CONC 33 g/dl (33.0-37.0); MEAN PLATELET VOLUME 10.1 fl (7.4-10.4); PLATELET COUNT 534 K/mm3 (130-400); RED BLOOD COUNT 4.77 M/mm3 (4.10-5.30); REDCELL DISTRIBUTION WIDTH-CV 13.7 % (11.5-14.5)
[2017-10-06 11:25] LABS: ALANINE AMINOTRANSFERASE 35 U/L (9-52); ALBUMIN 4.7 gm/dL (3.5-5.0); ALKALINE PHOSPHATASE 108 U/L (50-136); ANION GAP 24 mmol/L (7-16); AST,SGOT 31 U/L (15-37); BILIRUBIN,TOTAL 0.3 mg/dL (0.0-1.0); BLOOD UREA NITROGEN 15 mg/dL (7-17); CALCIUM 10.9 mg/dL (8.4-10.2); CARBON DIOXIDE 17 mmol/L (22-30); CHLORIDE 100 mmol/L (98-107); CREATININE, serum 1.06 mg/dL (0.52-1.25); GLUCOSE 190 mg/dL (74-106); POTASSIUM 3.7 mmol/L (3.4-5.0); SODIUM 142 mmol/L (137-145); TOTAL PROTEIN 8.3 gm/dL (6.4-8.2)
[2017-10-06 11:30] LABS: ACETAMINOPHEN < 10 ug/mL (10-30); ALCOHOL(ethanol),MEDICAL < 10 mg/dL; SALICYLATE < 1.0 mg/dL
[2017-10-06 11:46] LABS: HYPOCHROMIA 1+; LYMPHOCYTE 17 % (20.0-51.0); NEUTROPHILS 76 % (42.0-75.2); PLATELET ESTIMATE INCREASED (NORMAL)
[2017-10-06 14:09] VITALS: BP 101/65; PULSE 86
== END 2017-10-06 14:14 | disposition home or self-care (01) ==
LOC: COL.ER 10:43
PROVIDERS: Nurse Practitioner
DX: R25.1 Tremor, unspecified (principal); F31.9 Bipolar disorder, unspecified; Z79.51 Long term (current) use of inhaled steroids
CPT/HCPCS: J1630; J2060

== ENCOUNTER → 2017-11-16 | Outpatient (CLI) | payer MEDICAID | LOC: MHCPAIN 14:28 | DX: G89.29 Other chronic pain (principal); M47.817 Spondylosis without myelopathy or radiculopathy, lumbosacral region; M53.3 Sacrococcygeal disorders, not elsewhere classified; M79.1 Myalgia | CPT/HCPCS: G0463 ==

== ENCOUNTER → 2017-11-17 | Outpatient (CLI) | payer MEDICAID | LOC: MHCPAIN 08:45 | DX: M79.1 Myalgia (principal) | CPT/HCPCS: J1040 ==

== ENCOUNTER 2017-12-01 18:57 | Emergency (ER) | payer MEDICAID ==
[~2017-12-01] VITALS: Ht 157.5 cm; Wt 97.3 kg
[2017-12-01 19:03] VITALS: TEMP 98.6
[2017-12-01 21:48] VITALS: BP 110/58; PULSE 78
== END 2017-12-01 21:48 | disposition home or self-care (01) ==
LOC: COL.ER 18:57
DX: G43.909 Migraine, unspecified, not intractable, without status migrainosus (principal); Z79.51 Long term (current) use of inhaled steroids
CPT/HCPCS: J1170; J1200; J2550; J3030; J7030

== ENCOUNTER 2017-12-27 08:30 | Outpatient (RCR) | payer MEDICAID | END 2018-02-09 16:38 | disposition home or self-care (01) | LOC: WSPT 08:30 | DX: M25.561 Pain in right knee (principal) ==

== ENCOUNTER 2017-12-30 12:08 | Emergency (ER) | payer MEDICAID ==
[~2017-12-30] VITALS: Ht 154.9 cm; Wt 97.3 kg
[2017-12-30 12:10] VITALS: TEMP 97.4
[2017-12-30 15:51] VITALS: BP 123/99; PULSE 80
== END 2017-12-30 15:52 | disposition home or self-care (01) ==
LOC: COL.ER 12:08
DX: R25.1 Tremor, unspecified (principal); G43.909 Migraine, unspecified, not intractable, without status migrainosus; J45.909 Unspecified asthma, uncomplicated; F41.9 Anxiety disorder, unspecified; F31.9 Bipolar disorder, unspecified; F25.9 Schizoaffective disorder, unspecified; Z90.710 Acquired absence of both cervix and uterus; Z90.89 Acquired absence of other organs; F17.210 Nicotine dependence, cigarettes, uncomplicated; Z79.51 Long term (current) use of inhaled steroids
CPT/HCPCS: J1170; J1200; J1630; J2060; J2550; J7030

== ENCOUNTER 2018-01-31 08:45 | Outpatient (RCR) | payer MEDICAID ==
[2018-02-23] MEDS ORDERED: LOPRESSOR 550 MG/TAB PO (14:57)
[2018-02-23] MEDS ORDERED: HALDOL .5M0.5 MG/TAB PO (14:57)
[2018-02-23] MEDS ORDERED: ATARAX 25MG25 MG/TAB PO (14:58)
[2018-02-23] MEDS ORDERED: ZOFRAN 4MG T4 MG/TAB PO (14:58)
[2018-02-25] MEDS ORDERED: ZOFRAN 4MG T4 MG/TAB PO (18:56)
== END 2018-04-17 | disposition home or self-care (01) ==
LOC: WSPT
DX: R42 Dizziness and giddiness (principal)

== ENCOUNTER → 2018-02-03 | Outpatient (CLI) | payer MEDICAID ==
[~2018-02-03] VITALS: Ht 154.9 cm; Wt 102.0 kg
[2018-02-03 17:43] VITALS: BP 122/90; PULSE 70; TEMP 97.5
== END ==
LOC: EUO 14:54
DX: G43.709 Chronic migraine without aura, not intractable, without status migrainosus (principal)
CPT/HCPCS: J1170; J2550

== ENCOUNTER 2018-02-23 13:58 | Emergency (ER) | payer MEDICAID ==
[~2018-02-23] VITALS: Ht 157.5 cm; Wt 100.9 kg
[2018-02-23 13:59] VITALS: TEMP 97.8
[2018-02-23 14:52] LABS: BASO # 0.1 (0.0-0.2); BASO % 0.4 % (0.0-2.0); GRAN # 10.2 (1.4-6.5); GRAN % 74.3 % (42.2-75.2); HEMATOCRIT 43.2 % (37.0-47.0); HEMOGLOBIN 14.5 g/dl (12.5-16.0); LYMPH # 2.4 (1.2-3.4); LYMPH % 17.3 % (20.0-51.0); MEAN CELL VOLUME 93 fl (80.0-100.0); MEAN CORPUSCULAR HEMOGLOBIN 31 pg (27.0-31.0); MEAN CORPUSCULAR HGB CONC 34 g/dl (33.0-37.0); MEAN PLATELET VOLUME 9.5 fl (7.4-10.4); MONO # 0.8 (0.1-0.6); PLATELET COUNT 456 K/mm3 (130-400); RED BLOOD COUNT 4.63 M/mm3 (4.10-5.30)
[2018-02-23] MEDS ORDERED: HALDOL .5M0.5 MG/TAB PO (14:57)
[2018-02-23] MEDS ORDERED: LOPRESSOR 550 MG/TAB PO (14:57)
[2018-02-23] MEDS ORDERED: ATARAX 25MG25 MG/TAB PO (14:58)
[2018-02-23] MEDS ORDERED: ZOFRAN 4MG T4 MG/TAB PO (14:58)
[2018-02-23 15:20] LABS: ALANINE AMINOTRANSFERASE 26 U/L (9-52); ALBUMIN 4.5 gm/dL (3.5-5.0); ALKALINE PHOSPHATASE 72 U/L (50-136); ANION GAP 11 mmol/L (7-16); AST,SGOT 22 U/L (15-37); BILIRUBIN,TOTAL 0.6 mg/dL (0.0-1.0); BLOOD UREA NITROGEN 15 mg/dL (7-17); CALCIUM 10.2 mg/dL (8.4-10.2); CARBON DIOXIDE 25 mmol/L (22-30); CHLORIDE 103 mmol/L (98-107); CREATININE, serum 1.07 mg/dL (0.52-1.25); GLUCOSE 111 mg/dL (74-106); MAGNESIUM 1.8 mg/dL (1.6-2.3); POTASSIUM 4.2 mmol/L (3.4-5.0); SODIUM 140 mmol/L (137-145); TOTAL PROTEIN 7.9 gm/dL (6.4-8.2)
[2018-02-23 15:35] LABS: C-REACTIVE PROTEIN < 0.5 mg/dL (0.0-0.9)
[2018-02-23 16:53] LABS: COLLECTION METHOD CLEAN CATCH
[2018-02-23 17:07] LABS: MUCOUS Present /lpf; PH 6 (5-8); URINE APPEARANCE Clear; URINE BACTERIA None Seen /hpf; URINE BILIRUBIN Negative (NEGATIVE); URINE BLOOD Negative (NEGATIVE); URINE COLOR Yellow; URINE GLUCOSE Negative (NEGATIVE); URINE KETONE Negative (NEGATIVE); URINE LEUKOCYTE ESTERASE Trace (NEGATIVE); URINE NITRATE Negative (NEGATIVE); URINE PROTEIN(semi-quant) Negative (NEGATIVE); URINE RBC 0-2 /hpf; URINE UROBILINOGEN Negative (NEGATIVE)
[2018-02-23 18:50] VITALS: BP 110/75; PULSE 74
== END 2018-02-23 18:50 | disposition home or self-care (01) ==
LOC: COL.ER 13:58
PROVIDERS: Family Medicine
DX: G43.909 Migraine, unspecified, not intractable, without status migrainosus (principal); R56.9 Unspecified convulsions; K58.9 Irritable bowel syndrome, unspecified; Z79.51 Long term (current) use of inhaled steroids
CPT/HCPCS: J1630; J2060; J2405; J7030

== ENCOUNTER 2018-02-25 14:45 | Emergency (ER) | payer MEDICAID ==
[~2018-02-25] VITALS: Ht 157.5 cm; Wt 97.7 kg
[~2018-02-25 14:45] MED LIST changes: +ATARAX 25MG25 MG/TAB PO; +HALDOL .5M0.5 MG/TAB PO; +LOPRESSOR 550 MG/TAB PO; +ZOFRAN 4MG T4 MG/TAB PO
[2018-02-25 14:50] VITALS: TEMP 97.4
[2018-02-25 16:40] LABS: BASO # 0.1 (0.0-0.2); BASO % 0.4 % (0.0-2.0); EOS % 0.1 % (0-4.0); GRAN # 8.3 (1.4-6.5); HEMATOCRIT 41.7 % (37.0-47.0); HEMOGLOBIN 14.1 g/dl (12.5-16.0); LYMPH # 2.5 (1.2-3.4); LYMPH % 20.9 % (20.0-51.0); MEAN CELL VOLUME 94 fl (80.0-100.0); MEAN CORPUSCULAR HEMOGLOBIN 32 pg (27.0-31.0); MEAN CORPUSCULAR HGB CONC 34 g/dl (33.0-37.0); MEAN PLATELET VOLUME 9.6 fl (7.4-10.4); MONO # 0.9 (0.1-0.6); MONO % 7.3 % (1.7-9.3); PLATELET COUNT 435 K/mm3 (130-400); RED BLOOD COUNT 4.44 M/mm3 (4.10-5.30)
[2018-02-25 16:57] LABS: ALANINE AMINOTRANSFERASE 26 U/L (9-52); ALBUMIN 4.4 gm/dL (3.5-5.0); ALKALINE PHOSPHATASE 64 U/L (50-136); ANION GAP 11 mmol/L (7-16); AST,SGOT 22 U/L (15-37); BILIRUBIN,TOTAL 0.5 mg/dL (0.0-1.0); BLOOD UREA NITROGEN 12 mg/dL (7-17); CALCIUM 9.9 mg/dL (8.4-10.2); CARBON DIOXIDE 27 mmol/L (22-30); CHLORIDE 104 mmol/L (98-107); CREATININE, serum 0.98 mg/dL (0.52-1.25); GLUCOSE 107 mg/dL (74-106); LIPASE 115 U/L (23-300); POTASSIUM 3.8 mmol/L (3.4-5.0); SODIUM 141 mmol/L (137-145); TOTAL PROTEIN 7.7 gm/dL (6.4-8.2)
[2018-02-25 17:06] LABS: C-REACTIVE PROTEIN < 0.5 mg/dL (0.0-0.9); TROPONIN-I < 0.012 ng/mL (0.000-0.034)
[2018-02-25] MEDS ORDERED: ZOFRAN 4MG T4 MG/TAB PO (18:56)
[2018-02-25 19:34] VITALS: BP 130/82; PULSE 72
== END 2018-02-25 19:36 | disposition home or self-care (01) ==
LOC: COL.ER 14:45
PROVIDERS: Emergency Medicine
DX: R11.10 Vomiting, unspecified (principal); R19.7 Diarrhea, unspecified; M79.7 Fibromyalgia; Z79.51 Long term (current) use of inhaled steroids
CPT/HCPCS: J2060; J2405; J7030

== ENCOUNTER → 2018-03-16 | Outpatient (CLI) | payer MEDICAID | LOC: MHCPAIN 08:46 | DX: G89.29 Other chronic pain (principal); M47.817 Spondylosis without myelopathy or radiculopathy, lumbosacral region; M53.3 Sacrococcygeal disorders, not elsewhere classified; M79.18 Myalgia, other site | CPT/HCPCS: G0463 ==

== ENCOUNTER 2018-04-30 13:08 | Emergency (ER) | payer MEDICAID ==
[~2018-04-30] VITALS: Ht 157.5 cm; Wt 102.3 kg
[2018-04-30 13:13] VITALS: TEMP 99.8
[2018-04-30 13:36] LABS: BASO % 0.3 % (0.0-2.0); EOS % 0.1 % (0-4.0); GRAN # 12.2 (1.4-6.5); GRAN % 82.9 % (42.2-75.2); HEMATOCRIT 43.2 % (37.0-47.0); HEMOGLOBIN 14.5 g/dl (12.5-16.0); LYMPH # 1.5 (1.2-3.4); LYMPH % 10.1 % (20.0-51.0); MEAN CELL VOLUME 96 fl (80.0-100.0); MEAN CORPUSCULAR HEMOGLOBIN 32 pg (27.0-31.0); MEAN CORPUSCULAR HGB CONC 34 g/dl (33.0-37.0); MEAN PLATELET VOLUME 9.8 fl (7.4-10.4); MONO # 0.8 (0.1-0.6); MONO % 5.3 % (1.7-9.3); PLATELET COUNT 442 K/mm3 (130-400); RED BLOOD COUNT 4.52 M/mm3 (4.10-5.30)
[2018-04-30 13:46] LABS: ALBUMIN 4.5 gm/dL (3.5-5.0); BILIRUBIN,TOTAL 0.4 mg/dL (0.0-1.0); CALCIUM 9.7 mg/dL (8.4-10.2); CREATININE, serum 0.91 mg/dL (0.52-1.25); POTASSIUM 3.6 mmol/L (3.4-5.0); TOTAL PROTEIN 7.9 gm/dL (6.4-8.2)
[2018-04-30 13:50] LABS: COLLECTION METHOD CATHETER
[2018-04-30 13:59] LABS: PH 6 (5-8); SQUAMOUS EPITHELIAL 0-2 /hpf; URINE APPEARANCE Clear; URINE BACTERIA None Seen /hpf; URINE BILIRUBIN Negative (NEGATIVE); URINE BLOOD Negative (NEGATIVE); URINE COLOR Amber; URINE GLUCOSE Negative (NEGATIVE); URINE KETONE Negative (NEGATIVE); URINE LEUKOCYTE ESTERASE Negative (NEGATIVE); URINE NITRATE Positive (NEGATIVE); URINE PROTEIN(semi-quant) Negative (NEGATIVE)
[2018-04-30] MEDS ORDERED: MACROBID 1100 MG/CAP PO (14:13)
[2018-04-30 14:35] VITALS: BP 139/98; PULSE 120
== END 2018-04-30 14:40 | disposition home or self-care (01) ==
LOC: COL.ER 13:08
PROVIDERS: Family Medicine
DX: R33.9 Retention of urine, unspecified (principal); F17.210 Nicotine dependence, cigarettes, uncomplicated

== ENCOUNTER 2018-07-01 10:51 | Emergency (ER) | payer MEDICAID ==
[~2018-07-01] VITALS: Ht 157.5 cm; Wt 93.2 kg
[~2018-07-01 10:51] MED LIST changes: +MACROBID 1100 MG/CAP PO
[2018-07-01 10:52] VITALS: TEMP 97.4
[2018-07-01 12:24] LABS: BASO # 0.1 (0.0-0.2); BASO % 0.4 % (0.0-2.0); EOS % 0.2 % (0-4.0); GRAN # 10.3 (1.4-6.5); GRAN % 78.8 % (42.2-75.2); HEMATOCRIT 41.3 % (37.0-47.0); HEMOGLOBIN 14.3 g/dl (12.5-16.0); LYMPH # 1.8 (1.2-3.4); LYMPH % 14.1 % (20.0-51.0); MEAN CELL VOLUME 92 fl (80.0-100.0); MEAN CORPUSCULAR HEMOGLOBIN 32 pg (27.0-31.0); MEAN CORPUSCULAR HGB CONC 35 g/dl (33.0-37.0); MEAN PLATELET VOLUME 9.9 fl (7.4-10.4); MONO # 0.7 (0.1-0.6); MONO % 5.7 % (1.7-9.3); PLATELET COUNT 388 K/mm3 (130-400); RED BLOOD COUNT 4.51 M/mm3 (4.10-5.30); REDCELL DISTRIBUTION WIDTH-CV 13.3 % (11.5-14.5)
[2018-07-01 12:26] LABS: PROTHROMBIN TIME 11.7 SECONDS (9.7-12.8)
[2018-07-01 12:32] LABS: ALANINE AMINOTRANSFERASE 14 U/L (9-52); ALBUMIN 4.1 gm/dL (3.5-5.0); ALKALINE PHOSPHATASE 73 U/L (50-136); ANION GAP 11 mmol/L (7-16); AST,SGOT 22 U/L (15-37); BILIRUBIN,TOTAL 0.4 mg/dL (0.0-1.0); BLOOD UREA NITROGEN 14 mg/dL (7-17); CALCIUM 9.8 mg/dL (8.4-10.2); CARBON DIOXIDE 29 mmol/L (22-30); CHLORIDE 98 mmol/L (98-107); CREATININE, serum 1.56 (0.52-1.25); GLUCOSE 112 mg/dL (74-106); POTASSIUM 3.6 mmol/L (3.4-5.0); SODIUM 138 mmol/L (137-145); TOTAL PROTEIN 7.3 gm/dL (6.4-8.2)
[2018-07-01 13:04] LABS: TROPONIN-I < 0.012 ng/mL (0.000-0.035)
[2018-07-01] MEDS ORDERED: ZOFRAN ODT4 MG PO (13:15)
[2018-07-01 14:02] VITALS: BP 108/70; PULSE 80
== END 2018-07-01 13:56 | disposition home or self-care (01) ==
LOC: COL.ER 10:51
PROVIDERS: Emergency Medicine
DX: S06.0X0A Concussion without loss of consciousness, initial encounter (principal); S60.229A Contusion of unspecified hand, initial encounter; M79.7 Fibromyalgia; G43.909 Migraine, unspecified, not intractable, without status migrainosus; Z79.51 Long term (current) use of inhaled steroids; W18.30XA Fall on same level, unspecified, initial encounter; Y92.009 Unspecified place in unspecified non-institutional (private) residence as the place of occurrence of the external cause
CPT/HCPCS: J2060; J7040

== ENCOUNTER → 2018-08-16 | Outpatient (CLI) | payer MEDICAID ==
[~2018-08-16] MED LIST changes: +ZOFRAN ODT4 MG PO; +ZYLOPRIM 100MG100 MG PO
== END ==
LOC: MHCPAIN 14:43
DX: G89.29 Other chronic pain (principal); M47.817 Spondylosis without myelopathy or radiculopathy, lumbosacral region; M53.3 Sacrococcygeal disorders, not elsewhere classified; M79.18 Myalgia, other site
CPT/HCPCS: G0463; J1040

== ENCOUNTER 2018-08-17 17:13 | Outpatient (CLI) | payer MEDICAID ==
[~2018-08-17] VITALS: Ht 157.5 cm; Wt 96.7 kg
[~2018-08-17 17:13] MED LIST changes: -ZYLOPRIM 100MG100 MG PO
[2018-08-17] MEDS ORDERED: ZYLOPRIM 100MG100 MG PO (17:27)
[2018-08-17 17:33] VITALS: BP 105/71; PULSE 78; TEMP 97.7
== END 2018-08-17 19:00 | disposition home or self-care (01) ==
LOC: EUO 17:13
DX: G43.719 Chronic migraine without aura, intractable, without status migrainosus (principal); E10.9 Type 1 diabetes mellitus without complications
CPT/HCPCS: J1170; J2550

== ENCOUNTER 2018-08-19 14:30 | Outpatient (RCR) | payer MEDICAID ==
[~2018-08-19 14:30] MED LIST changes: +ZYLOPRIM 100MG100 MG PO
== END 2018-09-15 13:11 | disposition home or self-care (01) ==
LOC: WSPT 14:30
DX: R29.898 Other symptoms and signs involving the musculoskeletal system (principal); R42 Dizziness and giddiness

== ENCOUNTER 2018-09-08 16:05 | Outpatient (CLI) | payer MEDICAID ==
[~2018-09-08] VITALS: Ht 157.5 cm; Wt 93.9 kg
[2018-09-08 17:00] VITALS: BP 102/73; PULSE 88; TEMP 98.4
--- NOTE | 2018-09-08 17:43 | NUR ---
Pt dad here to pick pt up.
== END 2018-09-08 17:43 | disposition home or self-care (01) ==
LOC: EUO 16:05
DX: G43.719 Chronic migraine without aura, intractable, without status migrainosus (principal)
CPT/HCPCS: J1170; J2550

== ENCOUNTER 2018-09-09 21:14 | Emergency (ER) | payer MEDICAID ==
[~2018-09-09] VITALS: Ht 157.5 cm; Wt 93.2 kg
[2018-09-09 21:19] VITALS: TEMP 97.3
[2018-09-09 21:41] LABS: COLLECTION METHOD CATHETER
[2018-09-09 21:53] LABS: MUCOUS Present /lpf; PH 5 (5-8); SQUAMOUS EPITHELIAL None Seen /hpf; URINE APPEARANCE Clear; URINE BACTERIA None Seen /hpf; URINE BILIRUBIN Negative (NEGATIVE); URINE BLOOD 1+ (NEGATIVE); URINE COLOR Yellow; URINE GLUCOSE Negative (NEGATIVE); URINE KETONE Negative (NEGATIVE); URINE LEUKOCYTE ESTERASE Negative (NEGATIVE); URINE NITRATE Negative (NEGATIVE); URINE PROTEIN(semi-quant) Negative (NEGATIVE); URINE UROBILINOGEN Negative (NEGATIVE)
[2018-09-09 22:04] VITALS: BP 113/86; PULSE 81
== END 2018-09-09 22:08 | disposition home or self-care (01) ==
LOC: COL.ER 21:14
PROVIDERS: Family Medicine
DX: R33.9 Retention of urine, unspecified (principal); M79.7 Fibromyalgia

== ENCOUNTER → 2018-09-16 | Outpatient (CLI) | payer MEDICAID | LOC: COL.RAD 10:02 | DX: N39.43 Post-void dribbling (principal); Z87.442 Personal history of urinary calculi | CPT/HCPCS: Q9967 ==

== ENCOUNTER 2018-09-19 16:45 | Outpatient (CLI) | payer MEDICAID ==
[~2018-09-19] VITALS: Ht 157.5 cm; Wt 93.6 kg
[2018-09-19 17:07] VITALS: BP 112/50; PULSE 84; TEMP 98.3
== END 2018-09-19 17:32 | disposition home or self-care (01) ==
LOC: EUO 16:45 → EDSTATUS 17:00 → EUO 17:32
DX: G43.719 Chronic migraine without aura, intractable, without status migrainosus (principal)
CPT/HCPCS: J1170; J2550

== ENCOUNTER 2018-11-06 16:38 | Emergency (ER) | payer MEDICAID ==
[~2018-11-06] VITALS: Ht 157.5 cm; Wt 92.7 kg
[2018-11-06 16:58] VITALS: TEMP 97.8
[2018-11-06 19:35] VITALS: BP 133/89; PULSE 98
[2018-11-07] MEDS ORDERED: MACROBID 1100 MG/CAP PO (20:31)
== END 2018-11-06 19:36 | disposition home or self-care (01) ==
LOC: COL.ER 16:38
DX: G43.909 Migraine, unspecified, not intractable, without status migrainosus (principal); F31.9 Bipolar disorder, unspecified; F12.90 Cannabis use, unspecified, uncomplicated; M79.7 Fibromyalgia; Z87.891 Personal history of nicotine dependence
CPT/HCPCS: J1170; J2550

== ENCOUNTER 2018-11-07 17:50 | Emergency (ER) | payer MEDICAID ==
[~2018-11-07] VITALS: Ht 157.5 cm; Wt 92.7 kg
[~2018-11-07 17:50] MED LIST changes: +MELATONIN5 M1 PO; -MELATONIN5 M1 SL
[2018-11-07 17:52] VITALS: TEMP 98.7
[2018-11-07 18:34] LABS: COLLECTION METHOD CATHETER
[2018-11-07 18:44] LABS: BASO % 0.3 % (0.0-2.0); EOS # 0.1 (0.0-0.7); EOS % 0.7 % (0-4.0); GRAN # 7.4 (1.4-6.5); GRAN % 61.9 % (42.2-75.2); HEMATOCRIT 38.8 % (37.0-47.0); HEMOGLOBIN 13.1 g/dl (12.5-16.0); LYMPH # 3.1 (1.2-3.4); LYMPH % 25.5 % (20.0-51.0); MEAN CELL VOLUME 92 fl (80.0-100.0); MEAN CORPUSCULAR HEMOGLOBIN 31 pg (27.0-31.0); MEAN CORPUSCULAR HGB CONC 34 g/dl (33.0-37.0); MEAN PLATELET VOLUME 9.7 fl (7.4-10.4); MONO # 1.3 (0.1-0.6); MONO % 10.8 % (1.7-9.3); PLATELET COUNT 466 K/mm3 (130-400); RED BLOOD COUNT 4.21 M/mm3 (4.10-5.30); REDCELL DISTRIBUTION WIDTH-CV 14.7 % (11.5-14.5)
[2018-11-07 18:53] LABS: HYALINE CAST >12 /lpf; MUCOUS Present /lpf; PH 5 (5-8); SQUAMOUS EPITHELIAL 0-2 /hpf; URINE APPEARANCE Clear; URINE BACTERIA None Seen /hpf; URINE BILIRUBIN Negative (NEGATIVE); URINE BLOOD Negative (NEGATIVE); URINE COLOR Yellow; URINE GLUCOSE Negative (NEGATIVE); URINE KETONE Negative (NEGATIVE); URINE LEUKOCYTE ESTERASE Negative (NEGATIVE); URINE NITRATE Negative (NEGATIVE); URINE PROTEIN(semi-quant) Negative (NEGATIVE); URINE UROBILINOGEN Negative (NEGATIVE)
[2018-11-07 18:56] LABS: ALBUMIN 4.3 gm/dL (3.5-5.0); BILIRUBIN,TOTAL 0.4 mg/dL (0.0-1.0); CALCIUM 9.5 mg/dL (8.4-10.2); CREATININE, serum 1.26 (0.52-1.25); POTASSIUM 3.2 mmol/L (3.4-5.0); TOTAL PROTEIN 7.7 gm/dL (6.4-8.2)
[2018-11-07 19:55] VITALS: BP 140/98; PULSE 130
[2018-11-07] MEDS ORDERED: MACROBID 1100 MG/CAP PO (20:31)
[2018-11-08] MEDS ORDERED: LAMICTAL150 MG PO (21:19)
[2018-11-08] MEDS ORDERED: REMERON 15M15 MG/TA1 PO (21:20)
[2018-11-08] MEDS ORDERED: AIMOVIG AU70 MG/1 M1 SQ (21:21)
[2018-11-08] MEDS ORDERED: ANTIVERT 12.512.5 MG PO (21:23)
[2018-11-08] MEDS ORDERED: CHANTIX 1MG1 MG PO (21:24)
[2018-11-08] MEDS ORDERED: ERGOCALCIFER50000 IU PO (21:25)
[2018-11-08] MEDS ORDERED: XANAX 0.5MG0.5 MG PO (21:26)
[2018-11-08] MEDS ORDERED: PREDNISONE10 MG PO (21:27)
[2018-11-08] MEDS ORDERED: GLUCOPHAGE XR500 M1 PO (21:28)
== END 2018-11-07 20:39 | disposition home or self-care (01) ==
LOC: COL.ER 17:50
PROVIDERS: Physician Assistant
DX: G43.909 Migraine, unspecified, not intractable, without status migrainosus (principal); R42 Dizziness and giddiness; R11.0 Nausea; M79.7 Fibromyalgia; N39.0 Urinary tract infection, site not specified; E87.6 Hypokalemia; F31.9 Bipolar disorder, unspecified; Z90.710 Acquired absence of both cervix and uterus; Z90.89 Acquired absence of other organs
CPT/HCPCS: J2405; J7030

== ENCOUNTER 2018-11-08 17:36 | Observation (INO) | payer MEDICAID ==
[~2018-11-08] VITALS: Ht 157.5 cm; Wt 209.6 kg
[2018-11-08 18:36] LABS: BASO # 0.1 (0.0-0.2); BASO % 0.4 % (0.0-2.0); EOS # 0.1 (0.0-0.7); EOS % 1.1 % (0-4.0); GRAN # 6.9 (1.4-6.5); GRAN % 58.8 % (42.2-75.2); HEMOGLOBIN 11.8 g/dl (12.5-16.0); LYMPH # 3.2 (1.2-3.4); LYMPH % 27.1 % (20.0-51.0); MEAN CELL VOLUME 93 fl (80.0-100.0); MEAN CORPUSCULAR HEMOGLOBIN 31 pg (27.0-31.0); MEAN CORPUSCULAR HGB CONC 34 g/dl (33.0-37.0); MEAN PLATELET VOLUME 9.7 fl (7.4-10.4); MONO # 1.4 (0.1-0.6); MONO % 11.9 % (1.7-9.3); PLATELET COUNT 428 K/mm3 (130-400); RED BLOOD COUNT 3.79 M/mm3 (4.10-5.30); REDCELL DISTRIBUTION WIDTH-CV 14.6 % (11.5-14.5)
[2018-11-08 18:37] LABS: HEMATOCRIT 35.2 % (37.0-47.0)
[2018-11-08 18:50] LABS: ALBUMIN 3.9 gm/dL (3.5-5.0); BILIRUBIN,TOTAL 0.4 mg/dL (0.0-1.0); C-REACTIVE PROTEIN 4.7 mg/dL (0.0-0.9); CALCIUM 9.4 mg/dL (8.4-10.2); CREATININE, serum 1.77 (0.52-1.25); POTASSIUM 3.1 mmol/L (3.4-5.0); TOTAL PROTEIN 6.9 gm/dL (6.4-8.2)
[2018-11-08 18:57] LABS: COLLECTION METHOD CLEAN CATCH
[2018-11-08 19:22] LABS: MUCOUS Present /lpf; PH 5 (5-8); SQUAMOUS EPITHELIAL None Seen /hpf; URINE APPEARANCE Clear; URINE BACTERIA None Seen /hpf; URINE BILIRUBIN Negative (NEGATIVE); URINE BLOOD Negative (NEGATIVE); URINE COLOR Yellow; URINE GLUCOSE Negative (NEGATIVE); URINE KETONE Negative (NEGATIVE); URINE LEUKOCYTE ESTERASE Negative (NEGATIVE); URINE NITRATE Negative (NEGATIVE); URINE PROTEIN(semi-quant) Negative (NEGATIVE); URINE RBC 0-2 /hpf; URINE UROBILINOGEN Negative (NEGATIVE)
[2018-11-08 20:08] VITALS: BP 121/88; PULSE 87; TEMP 97.7
[2018-11-08] MEDS ORDERED: LAMICTAL150 MG PO (21:19)
[2018-11-08] MEDS ORDERED: REMERON 15M15 MG/TA1 PO (21:20)
[2018-11-08] MEDS ORDERED: AIMOVIG AU70 MG/1 M1 SQ (21:21)
[2018-11-08] MEDS ORDERED: ANTIVERT 12.512.5 MG PO (21:23)
[2018-11-08] MEDS ORDERED: CHANTIX 1MG1 MG PO (21:24)
[2018-11-08] MEDS ORDERED: ERGOCALCIFER50000 IU PO (21:25)
[2018-11-08] MEDS ORDERED: XANAX 0.5MG0.5 MG PO (21:26)
[2018-11-08] MEDS ORDERED: PREDNISONE10 MG PO (21:27)
[2018-11-08] MEDS ORDERED: GLUCOPHAGE XR500 M1 PO (21:28)
--- NOTE | 2018-11-08 22:27 | NUR ---
Patient arrived to medical floor from ER at approximately 2000. Assessment complete at this time. Patient is not certain on her medications. States she has a medication list at home, but does not have anyone that can bean picker machine operator the medication list. Completed to patient's best ability, but agrees that it may not be accurage. LATH TIER aware, and will have pharmacist look at medications tomorrow. Patient reported headache. Given PRN APAP. Requested her Ambien and Remeron to help her sleep, and orders received to continue those medications. Peripheral IV to left forearm, with NS running at 125 ml/hr. Site is without redness, warmth, swelling, and pain. Denies cough, SOB, and dyspnea. LS CTA. Respirations even and unlabored. HRR. Cap refill < 3 sec. Non-tent skin turgor. 1+ edema BLE. Has light purple bruising to forehead. Bruises to BUE and BLE from falls. Voices no questions, needs, or concerns at this time. Call light is within reach.
[2018-11-08 23:23] VITALS: BP 114/61; PULSE 88; TEMP 97.8
[2018-11-08 23:29] VITALS: BP 114/61; PULSE 88; TEMP 97.8
[2018-11-08 23:48] VITALS: BP 114/61; PULSE 88; TEMP 97.8
[2018-11-09] VITALS (8 sets, daily range): BP systolic 83–123; BP diastolic 41–75; PULSE 81–109; TEMP 97.8–98.4
--- NOTE | 2018-11-09 04:34 | NUR ---
Patient has been calling for assistance with toileting. One assist with ambulating with walker to bathroom with gait belt. Denies having pain and discomfort. Does report vertigo. Gait is unsteady. IV continues to run at 125 mls/hr to peripheral IV to left forearm. Patient is resting in bed with eyes closed at this time. Call light is within reach.
[2018-11-09 06:35] LABS: BASO % 0.3 % (0.0-2.0); EOS # 0.2 (0.0-0.7); GRAN # 5.8 (1.4-6.5); HEMOGLOBIN 10.4 g/dl (12.5-16.0); LYMPH # 2.7 (1.2-3.4); LYMPH % 27.4 % (20.0-51.0); MEAN CELL VOLUME 93 fl (80.0-100.0); MEAN CORPUSCULAR HEMOGLOBIN 31 pg (27.0-31.0); MEAN CORPUSCULAR HGB CONC 33 g/dl (33.0-37.0); MEAN PLATELET VOLUME 9.7 fl (7.4-10.4); MONO # 1.2 (0.1-0.6); MONO % 11.6 % (1.7-9.3); PLATELET COUNT 385 K/mm3 (130-400); RED BLOOD COUNT 3.36 M/mm3 (4.10-5.30); REDCELL DISTRIBUTION WIDTH-CV 14.7 % (11.5-14.5)
[2018-11-09 06:38] LABS: HEMATOCRIT 31.3 % (37.0-47.0)
[2018-11-09 06:40] LABS: CALCIUM 8.4 mg/dL (8.4-10.2); CREATININE, serum 1.44 (0.52-1.25)
[2018-11-09 06:42] LABS: POTASSIUM 2.9 mmol/L (3.4-5.0)
--- NOTE | 2018-11-09 07:00 | NUR ---
Report received from PATRICIA Powell. pT in bed resting, denies needs, will continue to monitor.
--- NOTE | 2018-11-09 07:13 | NUR ---
Attempted to call hospitalist. Voice mail left requesting to call back regarding potassium of 2.9.
--- NOTE | 2018-11-09 09:09 | NUR ---
SW met with the patient to discuss a discharge plan. The pt lives alone in [place]. The pt has a walker, cane and a CPAP. The pt's PCP is Dr. Enriquez and his nurse, Cande from [facility]. Patient reports she has not used her CPAP in three years and was receiving her supplies from [facility]. SW contacted [facility] and they will send for an updated script to [facility]. The pt receives her medications from [facility] with no difficulties. The pt does not have advanced directives in the EMR and was not interested in a form. The pt's reports her parents Lauren and Gilbert live in [place] and are her emergency contact. At discharge Lauren will provide transportation. PT/OT ordered for the patient. RANJEET will continue to follow to assist with any discharge recommendations.
--- NOTE | 2018-11-09 09:30 | NUR ---
Assessment charted. Pt has bruising to L and R hip areas. IVF to LFA. Per pt IBS is "acting up from pancakes" she ate for breakfast, having frequent loose stools. Will continue to monitor.
[2018-11-09 15:45] LABS: TRICYCLIC ANTIDEPRESS URINE POSITIVE
--- NOTE | 2018-11-09 19:18 | NUR ---
Pt has done well today, up to bathroom often. Called hospitalist and order received for cdiff sample and ok to give night meds early. Pt resting in bed, meds provided per request. Gave bedside shift report to PATRICIA Powell who will resume care.
--- NOTE | 2018-11-09 20:30 | NUR ---
Patient assessed at this time. Denies having pain and discomfort. Does report vertigo restarting tonight. NS continues to run to peripheral IV to left forearm. Site is without redness, warmth, swelling, and pain. Voices no questions, needs, or concerns at this time. Bed in lowest position, bed alarm in place. Has been calling for assistance with toileting. C-diff sample taken to lab.
--- NOTE | 2018-11-09 23:03 | NUR ---
Patient's potassium recheck was 3.5. Getting replaced orally at this time. C-diff sample came back negative. Called RENEWABLE ENERGY PROJECT MANAGER and requested PRN Imodium for diarrhea per patient's request. Order received. Voices no other questions, needs, or concerns at this time. In bed watching TV at this time. Call light is within reach.
--- NOTE | 2018-11-10 00:56 | NUR ---
Given PRN Imodium as requested for loose stools. Voices no other questions, needs, or concerns at this time. Resting in bed with call light within reach.
[2018-11-10 03:43] VITALS: BP 115/74; PULSE 93; TEMP 98
--- NOTE | 2018-11-10 06:01 | NUR ---
Patient denies having paind and discomfort. Has received 3 Immodium this shift for loose stools Voices no other questions, needs, or concerns at this time. Resting in bed with call light within reach at this time.
[2018-11-10 06:08] LABS: BASO % 0.4 % (0.0-2.0); EOS # 0.3 (0.0-0.7); EOS % 3.7 % (0-4.0); GRAN # 2.6 (1.4-6.5); GRAN % 34.2 % (42.2-75.2); LYMPH # 3.7 (1.2-3.4); LYMPH % 48.2 % (20.0-51.0); MEAN CELL VOLUME 94 fl (80.0-100.0); MEAN CORPUSCULAR HGB CONC 33 g/dl (33.0-37.0); MONO % 13.1 % (1.7-9.3); PLATELET COUNT 386 K/mm3 (130-400); REDCELL DISTRIBUTION WIDTH-CV 15.3 % (11.5-14.5)
[2018-11-10 06:09] LABS: HEMATOCRIT 29.2 % (37.0-47.0); HEMOGLOBIN 9.6 g/dl (12.5-16.0); MEAN CORPUSCULAR HEMOGLOBIN 31 pg (27.0-31.0)
[2018-11-10 06:26] LABS: CALCIUM 8.3 mg/dL (8.4-10.2); CREATININE, serum 0.91 (0.52-1.25); POTASSIUM 3.4 mmol/L (3.4-5.0)
--- NOTE | 2018-11-10 07:29 | NUR ---
Received report from PATRICIA Powell.
[2018-11-10 07:50] VITALS: BP 132/84; PULSE 95; TEMP 98.1
[2018-11-10] MEDS ORDERED: ANTIVERT 25MG25 MG PO (09:26)
--- NOTE | 2018-11-10 09:32 | NUR ---
RANJEET rounded with the team; home health with nursing is recommended to assist in managing medications. Patient is going to have nursing with [facility]. Hzou from [facility] can accept for services. RANJEET informed the pt, PA and the pt's nurse and all were in agreeance. RANJEET will continue to follow.
--- NOTE | 2018-11-10 09:40 | NUR ---
The pt is to discharge home today, 8-8 with [facility] with nursing. SW provided [facility] with discharge orders. The pt's mom with pick pt up. There are no additional needs at this time.
--- NOTE | 2018-11-10 09:50 | NUR ---
Pt awake and alert upon entry, no C/O pain at this time, shift assessments complete, left Pt call light in reach, bed in lowest opsition.
--- NOTE | 2018-11-10 10:39 | NUR ---
First visit from the instrument room technician. No needs right now.
[2018-11-10 11:36] VITALS: BP 93/61; PULSE 79; TEMP 98
--- NOTE | 2018-11-10 13:24 | NUR ---
Pt discharged to home, escorted to exit, left by private auto.
== END 2018-11-10 13:26 | disposition home or self-care (01) ==
LOC: COL.ER 17:36 → MEDICAL 19:22
PROVIDERS: Family Medicine; Nurse Practitioner; Physician Assistant; ADMIT Student in an Organized Health Care Education/Training Program
DX: R42 Dizziness and giddiness (principal); N17.9 Acute kidney failure, unspecified; E11.9 Type 2 diabetes mellitus without complications; G43.909 Migraine, unspecified, not intractable, without status migrainosus; F41.9 Anxiety disorder, unspecified; F32.9 Major depressive disorder, single episode, unspecified; G89.29 Other chronic pain; M79.7 Fibromyalgia; K59.09 Other constipation; K56.699 Other intestinal obstruction unspecified as to partial versus complete obstruction; D64.89 Other specified anemias; Z79.84 Long term (current) use of oral hypoglycemic drugs; Z79.52 Long term (current) use of systemic steroids; Z90.710 Acquired absence of both cervix and uterus; Z87.891 Personal history of nicotine dependence; Z88.8 Allergy status to other drugs, medicaments and biological substances; Z88.6 Allergy status to analgesic agent; Z91.048 Other nonmedicinal substance allergy status; Z86.711 Personal history of pulmonary embolism
CPT/HCPCS: G0378; J2405; J7030; J7512

== ENCOUNTER 2018-11-12 09:13 | Emergency (ER) | payer MEDICAID ==
[~2018-11-12] VITALS: Ht 157.5 cm; Wt 90.7 kg
[~2018-11-12 09:13] MED LIST changes: +AIMOVIG AU70 MG/1 M1 SQ; +ANTIVERT 12.512.5 MG PO; +ANTIVERT 25MG25 MG PO; +ERGOCALCIFER50000 IU PO; +GLUCOPHAGE XR500 M1 PO; +LAMICTAL150 MG PO; +XANAX 0.5MG0.5 MG PO
[2018-11-12 09:14] VITALS: TEMP 98.7
[2018-11-12 09:52] LABS: BASO # 0.1 (0.0-0.2); BASO % 0.3 % (0.0-2.0); EOS # 0.2 (0.0-0.7); EOS % 1.5 % (0-4.0); GRAN # 9.7 (1.4-6.5); GRAN % 67.7 % (42.2-75.2); LYMPH # 3.1 (1.2-3.4); LYMPH % 21.5 % (20.0-51.0); MEAN CELL VOLUME 93 fl (80.0-100.0); MEAN CORPUSCULAR HGB CONC 34 g/dl (33.0-37.0); MEAN PLATELET VOLUME 9.4 fl (7.4-10.4); MONO # 1.1 (0.1-0.6); MONO % 7.8 % (1.7-9.3); RED BLOOD COUNT 3.95 M/mm3 (4.10-5.30); REDCELL DISTRIBUTION WIDTH-CV 15.3 % (11.5-14.5)
[2018-11-12 09:53] LABS: HEMATOCRIT 36.7 % (37.0-47.0); HEMOGLOBIN 12.3 g/dl (12.5-16.0); MEAN CORPUSCULAR HEMOGLOBIN 31 pg (27.0-31.0); PLATELET COUNT 499 K/mm3 (130-400)
[2018-11-12 10:00] LABS: ALBUMIN 4.1 gm/dL (3.5-5.0); BILIRUBIN,TOTAL 0.4 mg/dL (0.0-1.0); CALCIUM 9.2 mg/dL (8.4-10.2); CREATININE, serum 1.13 (0.52-1.25); POTASSIUM 3.5 mmol/L (3.4-5.0); TOTAL PROTEIN 7.4 gm/dL (6.4-8.2)
[2018-11-12 12:56] LABS: COLLECTION METHOD CLEAN CATCH
[2018-11-12 13:04] LABS: PH 7 (5-8); SQUAMOUS EPITHELIAL None Seen /hpf; URINE APPEARANCE Clear; URINE BACTERIA None Seen /hpf; URINE BILIRUBIN Negative (NEGATIVE); URINE BLOOD 1+ (NEGATIVE); URINE COLOR Straw; URINE GLUCOSE Negative (NEGATIVE); URINE KETONE Negative (NEGATIVE); URINE LEUKOCYTE ESTERASE Negative (NEGATIVE); URINE NITRATE Negative (NEGATIVE); URINE PROTEIN(semi-quant) Negative (NEGATIVE); URINE RBC 0-2 /hpf; URINE UROBILINOGEN Negative (NEGATIVE)
[2018-11-12 13:17] LABS: TRICYCLIC ANTIDEPRESS URINE NEGATIVE
[2018-11-12 13:29] VITALS: BP 110/75; PULSE 94
--- NOTE | 2018-11-12 14:47 | NUR ---
RANJEET followed-up with the patient due to social sciences chair referral. The pt was recently hospitalized at [facility] in observation status and was discharged with home health services with [facility]. RANJEET discussed a long-term placement. RANJEET contacted [facility] about possible placement and they reported they do not have a female bed available. RANJEET contacted [facility] they requested I contact admissions on Wednesday. RANJEET informed pt and pt stated she would like to discuss options with her parents. The pt reported to the SW she called EMS "because I could not get in the chair." The pt's nurse reports that the pt and the pt's mother discussed long-term placement and the pt cried. The pt was medically cleared to discharge and decided to go home.
--- NOTE | 2018-11-14 15:10 | NUR ---
RANJEET contacted Miri Hopper at [facility] to discuss patient placement. Miri is working on placement for the pt. RANJEET contacted the pt and informed her that Miri is working on placement. There are no additional needs at this time.
== END 2018-11-12 13:30 | disposition home or self-care (01) ==
LOC: COL.ER 09:13
PROVIDERS: Family Medicine
DX: F41.9 Anxiety disorder, unspecified (principal); F32.9 Major depressive disorder, single episode, unspecified; Z79.84 Long term (current) use of oral hypoglycemic drugs
CPT/HCPCS: J2060

== ENCOUNTER → 2019-01-25 | Outpatient (CLI) | payer MEDICAID | LOC: MHCPAIN 07:42 | DX: G89.29 Other chronic pain (principal); M47.817 Spondylosis without myelopathy or radiculopathy, lumbosacral region; M53.3 Sacrococcygeal disorders, not elsewhere classified; M79.18 Myalgia, other site | CPT/HCPCS: G0463; J1040 ==

== ENCOUNTER 2019-02-27 10:00 | Outpatient (RCR) | payer MEDICAID | END 2019-03-13 | disposition home or self-care (01) | LOC: WSPT | DX: R29.6 Repeated falls (principal); R42 Dizziness and giddiness ==

== ENCOUNTER 2019-03-07 10:18 | Emergency (ER) | payer MEDICAID ==
[~2019-03-07] VITALS: Ht 157.5 cm; Wt 97.5 kg
[2019-03-07 10:19] VITALS: TEMP 98
[2019-03-07 10:50] LABS: HEMATOCRIT 38.5 % (37.0-47.0); HEMOGLOBIN 12.7 g/dl (12.5-16.0); MEAN CELL VOLUME 96 fl (80.0-100.0); MEAN CORPUSCULAR HEMOGLOBIN 32 pg (27.0-31.0); MEAN CORPUSCULAR HGB CONC 33 g/dl (33.0-37.0); MEAN PLATELET VOLUME 9.5 fl (7.4-10.4); PLATELET COUNT 404 K/mm3 (130-400); REDCELL DISTRIBUTION WIDTH-CV 13.7 % (11.5-14.5)
[2019-03-07 11:02] LABS: BILIRUBIN,TOTAL 0.3 mg/dL (0.0-1.0); C-REACTIVE PROTEIN 1.2 mg/dL (0.0-0.9); CALCIUM 9.3 mg/dL (8.4-10.2); CREATININE, serum 1.45 (0.52-1.25); POTASSIUM 3.3 mmol/L (3.4-5.0); TOTAL PROTEIN 7.2 gm/dL (6.4-8.2)
[2019-03-07 11:22] LABS: BAND 3 % (0-10); EOSINOPHIL 1 % (0-4); LYMPHOCYTE 20 % (20.0-51.0); MYELOCYTE 1 % (0-0); NEUTROPHILS 67 % (42.0-75.2); PLATELET ESTIMATE NORMAL (NORMAL)
[2019-03-07 12:43] LABS: COLLECTION METHOD CATHETER
[2019-03-07 12:51] LABS: PH 7 (5-8); SQUAMOUS EPITHELIAL None Seen /hpf; URINE APPEARANCE Clear; URINE BACTERIA None Seen /hpf; URINE BILIRUBIN Negative (NEGATIVE); URINE BLOOD Negative (NEGATIVE); URINE COLOR Yellow; URINE GLUCOSE Negative (NEGATIVE); URINE KETONE Negative (NEGATIVE); URINE LEUKOCYTE ESTERASE Negative (NEGATIVE); URINE NITRATE Negative (NEGATIVE); URINE PROTEIN(semi-quant) Negative (NEGATIVE); URINE RBC 0-2 /hpf; URINE UROBILINOGEN Negative (NEGATIVE)
[2019-03-07 13:16] VITALS: BP 102/71; PULSE 72
--- NOTE | 2019-03-07 13:55 | NUR ---
Knotter Hand responded to a referral for patient who is in need of a taxi voucher. SW collaborated with patient, PATRICIA Larsen and [employer] [facility] [employer] to provide patient taxi ride home. SW provided voucher to Suzie and notified patient of approximate cherry picker operator time. No additional concerns at this time.
--- NOTE | 2019-03-07 15:03 | NUR ---
Drilling Machine Runner was notified by patient RN, Suzie that [facility] left the ER without patient because patient was not outside ready to go. Per Suzie, [facility] advised they would be back for patient but have not shown up. Patient contacted her mother who picked her up from the ER.
== END 2019-03-07 13:16 | disposition home or self-care (01) ==
LOC: COL.ER 10:18
PROVIDERS: Physician Assistant
DX: R42 Dizziness and giddiness (principal); G43.909 Migraine, unspecified, not intractable, without status migrainosus; F17.210 Nicotine dependence, cigarettes, uncomplicated; M79.7 Fibromyalgia; Z79.84 Long term (current) use of oral hypoglycemic drugs

== ENCOUNTER 2019-03-10 10:57 | Emergency (ER) | payer MEDICAID ==
[~2019-03-10] VITALS: Ht 157.5 cm; Wt 95.5 kg
[2019-03-10 11:23] LABS: HEMATOCRIT 38.6 % (37.0-47.0); HEMOGLOBIN 12.9 g/dl (12.5-16.0); MEAN CELL VOLUME 96 fl (80.0-100.0); MEAN CORPUSCULAR HEMOGLOBIN 32 pg (27.0-31.0); MEAN CORPUSCULAR HGB CONC 33 g/dl (33.0-37.0); MEAN PLATELET VOLUME 9.7 fl (7.4-10.4); PLATELET COUNT 400 K/mm3 (130-400); RED BLOOD COUNT 4.04 M/mm3 (4.10-5.30)
[2019-03-10 11:34] LABS: COLLECTION METHOD CATHETER
[2019-03-10 11:38] LABS: ALANINE AMINOTRANSFERASE 10 U/L (9-52); ALBUMIN 4.2 gm/dL (3.5-5.0); ALKALINE PHOSPHATASE 88 U/L (50-136); ANION GAP 13 mmol/L (7-16); AST,SGOT 19 U/L (15-37); BILIRUBIN,TOTAL 0.3 mg/dL (0.0-1.0); BLOOD UREA NITROGEN 16 mg/dL (7-17); CARBON DIOXIDE 28 mmol/L (22-30); CHLORIDE 99 mmol/L (98-107); GLUCOSE 98 mg/dL (74-106); POTASSIUM 3.6 mmol/L (3.4-5.0); SODIUM 140 mmol/L (137-145); TOTAL PROTEIN 7.2 gm/dL (6.4-8.2)
[2019-03-10 11:41] LABS: ACETAMINOPHEN < 10 ug/mL (10-30); ALCOHOL(ethanol),MEDICAL < 10 mg/dL; SALICYLATE < 1.0 mg/dL
[2019-03-10 11:43] LABS: MUCOUS Present /lpf; PH 6 (5-8); SQUAMOUS EPITHELIAL None Seen /hpf; URINE APPEARANCE Clear; URINE BACTERIA None Seen /hpf; URINE BILIRUBIN Negative (NEGATIVE); URINE BLOOD Negative (NEGATIVE); URINE COLOR Yellow; URINE GLUCOSE Negative (NEGATIVE); URINE KETONE Negative (NEGATIVE); URINE LEUKOCYTE ESTERASE Negative (NEGATIVE); URINE NITRATE Negative (NEGATIVE); URINE PROTEIN(semi-quant) Negative (NEGATIVE); URINE RBC 0-2 /hpf; URINE UROBILINOGEN Negative (NEGATIVE)
[2019-03-10 11:49] LABS: TROPONIN-I < 0.012 ng/mL (0.000-0.035)
[2019-03-10 11:51] LABS: TRICYCLIC ANTIDEPRESS URINE NEGATIVE
[2019-03-10 11:59] LABS: BAND 1 % (0-10); LYMPHOCYTE 15 % (20.0-51.0); METAMYELOCYTE 1 % (0-0); NEUTROPHILS 76 % (42.0-75.2)
[2019-03-10 12:00] LABS: PLATELET ESTIMATE NORMAL (NORMAL)
--- NOTE | 2019-03-10 16:09 | NUR ---
Explosives Mixer Operator responded to a social insurance adviser consultation in the Emergency Department. Patient lives alone in [place] and reports she falls every day and had a fall today that resulted in a hand injury. Patient states her parents, Lauren and Gilbert (ph#[phone]) live in town but are unable to take care of her. Patient reports she has nursing services coming to her home at some point in the next three weeks but cannot provide the name of a company. Patient provided contact information for Rosa Naqvi, Meat Packager with [facility] (ph#[phone]) and gave permission for to contact her. RANJEET contacted Rosa who advised she spoke with patient yesterday about setting up an evaluation for in home services and patient stated yesterday that she felt she did not need any services. Rosa reports she can meet with patient Wednesday at 1:30 to evaluate her and begin the process of setting up in home supports, which can take a couple of weeks. RANJEET met again with patient and provided this update. Patient states she understands the importance of meeting with Rosa and will make this appointment with Rosa on Wednesday work. Patient reports her mother can provide transportation upon discharge. RANJEET contacted PATRICIA Morganfrench lecturer at [facility] to provide update as patient receives primary care services from their office. RANJEET made report to Adult Protective Services (intake #[id number]).
[2019-03-10 16:19] VITALS: BP 128/76; PULSE 86; TEMP 98.2
== END 2019-03-10 16:24 | disposition home or self-care (01) ==
LOC: COL.ER 10:57
PROVIDERS: Emergency Medicine
DX: S62.91XA Unspecified fracture of right hand, initial encounter for closed fracture (principal); G43.909 Migraine, unspecified, not intractable, without status migrainosus; F31.9 Bipolar disorder, unspecified; M79.7 Fibromyalgia; Z90.710 Acquired absence of both cervix and uterus; Z90.89 Acquired absence of other organs; W19.XXXA Unspecified fall, initial encounter
CPT/HCPCS: J7030; Q4021

== ENCOUNTER 2019-05-29 15:28 | Outpatient (CLI) | payer MEDICAID ==
[~2019-05-29] VITALS: Ht 157.5 cm; Wt 105.4 kg
[2019-05-29 16:44] VITALS: BP 127/88; PULSE 78; TEMP 97.5
== END 2019-05-29 16:15 | disposition home or self-care (01) ==
LOC: EUO 15:28
DX: G43.719 Chronic migraine without aura, intractable, without status migrainosus (principal)
CPT/HCPCS: J1170; J2550

== ENCOUNTER 2019-06-26 14:33 | Outpatient (RCR) | payer MEDICAID ==
[~2019-06-26 14:33] MED LIST changes: +LOPRESSOR 225 MG/TAB PO; -LOPRESSOR 550 MG/TAB PO
[2019-08-28] MEDS ORDERED: BUMEX2 MG PO ×2 (07:30→08:00)
[2019-08-28] MEDS ORDERED: SEROQUEL 2525 MG/TAB PO (07:31)
[2019-08-28] MEDS ORDERED: AMBIEN CR 12.12.5 MG PO (07:33)
[2019-08-28] MEDS ORDERED: NEURONTIN300 MG/CAP PO (07:34)
[2019-08-28] MEDS ORDERED: HALDOL 5MG T5 MG/TAB PO (07:36)
[2019-08-28] MEDS ORDERED: AMITIZA 8MCG8 MCG PO (07:37)
[2019-08-28] MEDS ORDERED: PROAIR HFA0.09 MG/AC IH (07:39)
[2019-08-28] MEDS ORDERED: RT ADVAIR 528 DISKUS IH (07:40)
[2019-08-28] MEDS ORDERED: LEADER EYE ITCH5 ML OP (07:44)
[2019-08-28] MEDS ORDERED: ATIVAN 1MG T1 MG/TAB PO (07:47)
[2019-08-28] MEDS ORDERED: LINZESS72 MCG PO (07:47)
[2019-08-28] MEDS ORDERED: MULTI VITAMINS1 TAB PO (07:59)
[2019-08-28] MEDS ORDERED: NORCO 325 MG-101 TAB PO (08:34)
[2019-08-28] MEDS ORDERED: CEPHALEXIN500 M1 PO (09:03)
[2019-09-03] MEDS ORDERED: BENADRYL25 M2 (06:20)
[2019-09-03] MEDS ORDERED: NEURONTIN600 MG/TAB PO (19:23)
[2019-09-03] MEDS ORDERED: ADIPEX-P37.5 M2 PO (19:25)
[2019-09-03] MEDS ORDERED: ADIPEX-P37.5 MG PO (19:25)
[2019-09-03] MEDS ORDERED: GLUCOPHAGE1000 MG PO (19:25)
[2019-09-03] MEDS ORDERED: DEPAKOTE ER 50500 MG PO (19:26)
[2019-09-05] MEDS ORDERED: NEURONTIN100 MG/CAP PO (07:54)
[2019-09-05] MEDS ORDERED: REMERON 15M15 MG/TA1 PO (07:54)
[2019-09-05] MEDS ORDERED: SEROQUEL 2525 MG/TAB PO (07:55)
[2019-09-05] MEDS ORDERED: SEROQUEL50 MG PO (07:55)
[2019-09-05] MEDS ORDERED: MELATIN 3 MG-11 TAB PO (07:56)
[2019-09-05] MEDS ORDERED: NORCO 325 MG-101 TAB PO (07:57)
[2019-09-06] MEDS ORDERED: BUMEX2 MG PO (15:02)
== END 2019-09-24 | disposition home or self-care (01) ==
LOC: WSST
DX: R13.12 Dysphagia, oropharyngeal phase (principal); R13.14 Dysphagia, pharyngoesophageal phase

== ENCOUNTER → 2019-07-03 | Outpatient (CLI) | payer MEDICAID ==
[~2019-07-03] MED LIST changes: -LOPRESSOR 225 MG/TAB PO; +LOPRESSOR 550 MG/TAB PO
== END ==
LOC: COL.RAD 08:56
DX: J39.2 Other diseases of pharynx (principal); T17.308A Unspecified foreign body in larynx causing other injury, initial encounter

== ENCOUNTER 2019-08-24 10:32 | Outpatient (CLI) | payer MEDICAID ==
[~2019-08-24] VITALS: Ht 157.5 cm; Wt 104.5 kg
[2019-08-24 11:00] VITALS: BP 101/67; PULSE 62; TEMP 98.3
== END 2019-08-24 11:07 | disposition home or self-care (01) ==
LOC: EUO 10:32
DX: G43.719 Chronic migraine without aura, intractable, without status migrainosus (principal); R11.0 Nausea
CPT/HCPCS: J1170; J2550

== ENCOUNTER 2019-08-28 05:44 | Emergency (ER) | payer MEDICAID ==
[~2019-08-28] VITALS: Ht 157.5 cm; Wt 113.6 kg
[2019-08-28 05:44] VITALS: TEMP 96.2
[2019-08-28 06:10] LABS: HEMATOCRIT 35.4 % (37.0-47.0); HEMOGLOBIN 11.5 g/dl (12.5-16.0); MEAN CELL VOLUME 95 fl (80.0-100.0); MEAN CORPUSCULAR HEMOGLOBIN 31 pg (27.0-31.0); MEAN CORPUSCULAR HGB CONC 33 g/dl (33.0-37.0); MEAN PLATELET VOLUME 9.5 fl (7.4-10.4); PLATELET COUNT 342 K/mm3 (130-400); RED BLOOD COUNT 3.74 M/mm3 (4.10-5.30); REDCELL DISTRIBUTION WIDTH-CV 15.4 % (11.5-14.5)
[2019-08-28 06:30] LABS: ALBUMIN 3.8 gm/dL (3.5-5.0); ALKALINE PHOSPHATASE 73 U/L (50-136); ANION GAP 10 mmol/L (7-16); AST,SGOT 25 U/L (15-37); BILIRUBIN,TOTAL 0.4 mg/dL (0.0-1.0); BLOOD UREA NITROGEN 15 mg/dL (7-17); CALCIUM 9.2 mg/dL (8.4-10.2); CARBON DIOXIDE 33 mmol/L (22-30); CHLORIDE 96 mmol/L (98-107); CREATININE, serum 1.28 (0.52-1.25); GLUCOSE 103 mg/dL (74-106); POTASSIUM 3.9 mmol/L (3.4-5.0); SODIUM 139 mmol/L (137-145); TOTAL PROTEIN 6.9 gm/dL (6.4-8.2)
[2019-08-28 06:38] LABS: ALANINE AMINOTRANSFERASE 23 U/L (4-34)
[2019-08-28 06:45] LABS: BAND 1 % (0-10); LYMPHOCYTE 23 % (20.0-51.0); NEUTROPHILS 69 % (42.0-75.2)
[2019-08-28 06:46] LABS: PLATELET ESTIMATE NORMAL (NORMAL); TROPONIN-I < 0.012 ng/mL (0.000-0.035)
[2019-08-28] MEDS ORDERED: BUMEX2 MG PO ×2 (07:30→08:00)
[2019-08-28] MEDS ORDERED: SEROQUEL 2525 MG/TAB PO (07:31)
[2019-08-28] MEDS ORDERED: AMBIEN CR 12.12.5 MG PO (07:33)
[2019-08-28] MEDS ORDERED: NEURONTIN300 MG/CAP PO (07:34)
[2019-08-28] MEDS ORDERED: HALDOL 5MG T5 MG/TAB PO (07:36)
[2019-08-28] MEDS ORDERED: AMITIZA 8MCG8 MCG PO (07:37)
[2019-08-28] MEDS ORDERED: PROAIR HFA0.09 MG/AC IH (07:39)
[2019-08-28] MEDS ORDERED: RT ADVAIR 528 DISKUS IH (07:40)
[2019-08-28] MEDS ORDERED: LEADER EYE ITCH5 ML OP (07:44)
[2019-08-28] MEDS ORDERED: ATIVAN 1MG T1 MG/TAB PO (07:47)
[2019-08-28] MEDS ORDERED: LINZESS72 MCG PO (07:47)
[2019-08-28] MEDS ORDERED: MULTI VITAMINS1 TAB PO (07:59)
[2019-08-28 08:18] LABS: COLLECTION METHOD CLEAN CATCH
[2019-08-28] MEDS ORDERED: NORCO 325 MG-101 TAB PO (08:34)
[2019-08-28 08:53] LABS: PH 7 (5-8); URINE APPEARANCE Clear; URINE BACTERIA Rare /hpf; URINE BILIRUBIN Negative (NEGATIVE); URINE BLOOD Negative (NEGATIVE); URINE COLOR Yellow; URINE GLUCOSE Negative (NEGATIVE); URINE KETONE Negative (NEGATIVE); URINE LEUKOCYTE ESTERASE 1+ (NEGATIVE); URINE NITRATE Negative (NEGATIVE); URINE PROTEIN(semi-quant) Negative (NEGATIVE); URINE RBC 0-2 /hpf; URINE UROBILINOGEN Negative (NEGATIVE)
[2019-08-28] MEDS ORDERED: CEPHALEXIN500 M1 PO (09:03)
[2019-08-28 13:04] VITALS: BP 109/87; PULSE 92
--- NOTE | 2019-08-28 13:08 | NUR ---
RANJEET responded to ED consult. The patient presented to the emergency department for for evaluation of several falls. She has fallen twice now in the last 24 hours and has had several falls in the last week, reports falling almost every day. EMS was called last evening for a lift assist and then again tonight after she fell again causing a laceration to her right upper arm. She thinks she also hit her head as well and is having a headache. Physical therapy was ordered and worked with the patient and recommended that she would benefit from post-acute rehab. RANJEET then met with the patient. The patient lives alone in [place]. Her parents: Gilbert and Lauren (ph#[phone]), also live in [place]. She states she receives fdc 3-5 times a week from [facility], but that they have not been able to come out much, due to COVID. RANJEET attempted to contact [facility] to follow up. RANJEET left them a voicemail. The patient reports that she has been falling twice a day, every day for awhile now. I discussed post-acute rehab and the benefits. The patient reports that she is not going anywhere. She states that she has a dog that she needs to take care of. 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 The patient reports that she would be agreeable to outpatient PT/OT. RANJEET then contacted the patient's mother, Lauren, to update and to discuss the patient's decision. Lauren reports that this is nothing new for the patient and that this behavior with the patient has been going on for years. She reports that her and her have offered for the patient to move in with them, but the patient declined. Lauren reports that she can take the patient to her outpatient PT/OT appointments and try and stay with the patient a couple of hours a day to help her out. The patient and patient's mother preferred [facility] on [facility] for the outpatient PT/OT. RANJEET contacted Amy with PT and secured the patient an appointment on , 08/30, at 1100. RANJEET notified the patient's RN of the appointment and of the above information. RANJEET attempted to contact the patient's mother back to notify of the appointment. RANJEET left her a voicemail. RANJEET faxed the outpatient PT/OT script to [facility]. RANJEET made an APS report. APS intake ID#[id number].
== END 2019-08-28 13:04 | disposition home or self-care (01) ==
LOC: COL.ER 05:44
PROVIDERS: Emergency Medicine
DX: S41.111A Laceration without foreign body of right upper arm, initial encounter (principal); S70.11XA Contusion of right thigh, initial encounter; S40.022A Contusion of left upper arm, initial encounter; S20.222A Contusion of left back wall of thorax, initial encounter; S00.83XA Contusion of other part of head, initial encounter; G43.909 Migraine, unspecified, not intractable, without status migrainosus; I10 Essential (primary) hypertension; M79.7 Fibromyalgia; F41.9 Anxiety disorder, unspecified; F31.9 Bipolar disorder, unspecified; R40.2412 Glasgow coma scale score 13-15, at arrival to emergency department; Z79.52 Long term (current) use of systemic steroids; Z91.81 History of falling; Z79.51 Long term (current) use of inhaled steroids; Z23 Encounter for immunization; W19.XXXA Unspecified fall, initial encounter; Y92.009 Unspecified place in unspecified non-institutional (private) residence as the place of occurrence of the external cause
CPT/HCPCS: J2270; J7030; J7040

== ENCOUNTER 2019-10-09 11:30 | Outpatient (RCR) | payer MEDICAID ==
[~2019-10-09 11:30] MED LIST changes: +ADIPEX-P37.5 M2 PO; +AMBIEN CR 12.12.5 MG PO; +ATIVAN 1MG T1 MG/TAB PO; +BENADRYL25 M2; +GLUCOPHAGE1000 MG PO; +HALDOL 5MG T5 MG/TAB PO; +LEADER EYE ITCH5 ML OP; +LINZESS72 MCG PO; +LOPRESSOR 225 MG/TAB PO; -LOPRESSOR 550 MG/TAB PO; +MELATIN 3 MG-11 TAB PO; +MULTI VITAMINS1 TAB PO; +NEURONTIN100 MG/CAP PO; +NEURONTIN600 MG/TAB PO; +PROAIR HFA0.09 MG/AC IH; +RT ADVAIR 528 DISKUS IH; +SEROQUEL 2525 MG/TAB PO; +SEROQUEL50 MG PO
[2019-10-17] MEDS ORDERED: LASIX 40MG TABL40 MG PO (10:07)
== END 2019-12-11 | disposition still patient (30) ==
LOC: WSST
DX: R53.1 Weakness (principal); R53.81 Other malaise; Z91.81 History of falling

== ENCOUNTER 2019-10-14 11:45 | Inpatient (IN) | payer MEDICAID ==
[~2019-10-14] VITALS: Ht 157.5 cm; Wt 97.1 kg
[2019-10-14 12:24] LABS: HEMOGLOBIN 10.3 g/dl (12.5-16.0); MEAN CELL VOLUME 99 fl (80.0-100.0); MEAN CORPUSCULAR HEMOGLOBIN 32 pg (27.0-31.0); MEAN CORPUSCULAR HGB CONC 32 g/dl (33.0-37.0); PLATELET COUNT 403 K/mm3 (130-400); RED BLOOD COUNT 3.26 M/mm3 (4.10-5.30); REDCELL DISTRIBUTION WIDTH-CV 17.3 % (11.5-14.5)
[2019-10-14 12:28] LABS: HEMATOCRIT 32.3 % (37.0-47.0)
[2019-10-14 13:02] LABS: ALBUMIN 3.2 gm/dL (3.5-5.0); BILIRUBIN,TOTAL 0.3 mg/dL (0.0-1.0); C-REACTIVE PROTEIN 0.6 mg/dL (0.0-0.9); CALCIUM 8.7 mg/dL (8.4-10.2); CREATININE, serum 1.39 (0.52-1.25); POTASSIUM 4.2 mmol/L (3.4-5.0)
[2019-10-14 13:15] LABS: BAND 5 % (0-10); NEUTROPHILS 77 % (42.0-75.2)
[2019-10-14 13:16] LABS: ANISOCYTOSIS 1+
[2019-10-14 13:17] LABS: HYPOCHROMIA 1+; PLATELET ESTIMATE INCREASED (NORMAL)
[2019-10-14 13:18] LABS: LYMPHOCYTE 14 % (20.0-51.0)
--- NOTE | 2019-10-14 13:30 | NUR ---
Patient arrived to the floor at this time from ER. She is awake and responds to voice but will not open eyes when speaking, states the light hurts her eyes. Immediately on arrival pt requested to urinate via BSC. Myself and 2 other nurses began to assist pt but she was hardly able to sit up without falling to either side. Decided pt was too unstable for transfer. She refused the bed pérez at first but we insisted. Pt continued to stated she could not pee on a bedpan. An external catheter was offered in order to make her feel more comfortable using a brief, she accepted this and it remains in place. Patient is now comfortable in bed. Medication reconciliation was discussed verbally, patient was able to verify all medications. No other needs at this time. Call light is in reach.
[2019-10-14 14:16] LABS: COLLECTION METHOD CLEAN CATCH
[2019-10-14 14:33] LABS: PH 8 (5-8); SQUAMOUS EPITHELIAL 0-2 /hpf; URINE APPEARANCE Clear; URINE BACTERIA Rare /hpf; URINE BILIRUBIN Negative (NEGATIVE); URINE BLOOD Negative (NEGATIVE); URINE COLOR Straw; URINE GLUCOSE Negative (NEGATIVE); URINE KETONE Negative (NEGATIVE); URINE LEUKOCYTE ESTERASE Negative (NEGATIVE); URINE NITRATE Negative (NEGATIVE); URINE PROTEIN(semi-quant) Negative (NEGATIVE); URINE RBC 0-2 /hpf; URINE UROBILINOGEN Negative (NEGATIVE)
[2019-10-14 16:39] VITALS: BP 96/61; PULSE 83; TEMP 98
--- NOTE | 2019-10-14 18:28 | NUR ---
Pt has been stable since arriving to the floor. No complaints of pain or discomfort. She states that the dizziness is persistent and makes it hard for her to focus on things. She now has eyes open and is more talkative then prior. Lights have been dimmed in the room. Patient currently sitting up in bed with dinner. No other needs were expressed at this time. Call light is in reach.
[2019-10-14 19:35] VITALS: BP 122/76; PULSE 86; TEMP 97.6
[2019-10-14 23:59] VITALS: BP 108/65; PULSE 88; TEMP 97.4
[2019-10-15 04:00] VITALS: BP 87/55; PULSE 83; TEMP 97.8
--- NOTE | 2019-10-15 06:32 | NUR ---
Patient rested well overnight. Patient had purwick in place at beginning of shift, but reported that she was unable to use it. Patient c/o needing to void, got patient up with x2 assist to bedside commode, patient was able to void with no issues. Patient up a few more times to void with x2 assist, was continent of urine, did not have a bowel movememnt overnight. Patient denied pain or other needs overnight. Call light within reach, bed alarm on.
[2019-10-15 06:50] LABS: MEAN CELL VOLUME 101 fl (80.0-100.0); MEAN CORPUSCULAR HGB CONC 32 g/dl (33.0-37.0); MEAN PLATELET VOLUME 10.1 fl (7.4-10.4); PLATELET COUNT 387 K/mm3 (130-400); REDCELL DISTRIBUTION WIDTH-CV 17.8 % (11.5-14.5)
[2019-10-15 06:59] LABS: ALBUMIN 2.9 gm/dL (3.5-5.0); BILIRUBIN,TOTAL 0.3 mg/dL (0.0-1.0); C-REACTIVE PROTEIN 0.6 mg/dL (0.0-0.9); CALCIUM 8.4 mg/dL (8.4-10.2); CREATININE, serum 1.24 (0.52-1.25); MAGNESIUM 2.1 mg/dL (1.6-2.3); POTASSIUM 3.9 mmol/L (3.4-5.0); TOTAL PROTEIN 5.6 gm/dL (6.4-8.2)
[2019-10-15 07:04] LABS: PRE ALBUMIN 21.1 mg/dL (17.6-36.0)
[2019-10-15 07:14] LABS: HEMATOCRIT 31.2 % (37.0-47.0); HEMOGLOBIN 9.9 g/dl (12.5-16.0); MEAN CORPUSCULAR HEMOGLOBIN 32 pg (27.0-31.0)
[2019-10-15 08:26] VITALS: BP 114/74; PULSE 88; TEMP 98
--- NOTE | 2019-10-15 09:30 | NUR ---
Assessment complete. Patient sittingup in bed watching television this morning. Stated she had a headache and was feeling dizzy. PRN meclizine and imitrex was provided for this. Other than that she denies pain or discomfort at this time. IV site is CD&I at this time. Patient got up to the BSC via 2 assist and did much better than yesterday. She remains shakey but was able to stand and pivot, steps were not steady though. Continuing to monitor. No other needs were expressed at this time. Call light is in reach.
[2019-10-15 10:17] LABS: LYMPHOCYTE 49 % (20.0-51.0); MYELOCYTE 2 % (0-0); NEUTROPHILS 40 % (42.0-75.2)
[2019-10-15 10:18] LABS: PLATELET ESTIMATE NORMAL (NORMAL)
[2019-10-15 10:20] LABS: ANISOCYTOSIS 1+
[2019-10-15 10:21] LABS: HYPOCHROMIA 2+
--- NOTE | 2019-10-15 11:25 | NUR ---
Patient currently lives in [facility] alone with her parents yCnthia and Aaron as care support and the patients EMR. Their contact information is [phone]. Patient reports that she does not have a DPOA and she declined one at this time. Patient indicated that she does utilize a nebulizer as needed at night, and that her PCP is Dr. Milan. Patient reported that she does not have any upcoming appointments. Patient reported that she gets her medications from [facility] with no concerns. SW did speak with patients nurse following intake as patient reports that she would be okay going to a nursing facility for care. Patients nurse reported that she did hear the doctor mention sending the patient to rehab due to her excessive falls. SW provided patient with a listing of available places in [place]. Action: will leave word for weekday SW to follow up to answer any additional questions and determine which facility patient chooses.
[2019-10-15 12:00] VITALS: BP 138/68; PULSE 95; TEMP 97.6
[2019-10-15 16:43] VITALS: BP 134/87; PULSE 108; TEMP 98.1
--- NOTE | 2019-10-15 19:07 | NUR ---
Patient had a good, uneventful day other than the persistent headache, LENNY MACKENZIE seemed to take care of this. Dizziness also persists but bothers her when she gets up to the BSC. She was up many times to [facility] commode today. She remains very unsteady. Stated she is not ready to go home and understands the need for rehab or a facility to aid with her strength and mobility. no other needs. Call light is in reach. Bed alarm set.
[2019-10-15 19:47] VITALS: BP 123/84; PULSE 108; TEMP 99.2
--- NOTE | 2019-10-15 21:00 | NUR ---
Pt assessment completed and documented. Pt resting in bed watching television at this time. Pt alert and oriented x4. Denies pain. INT to left wrist without complications. Pt denies any other needs at this time. Fall precautions in place. Bed alarm on. Call light within reach. Will continue to monitor.
[2019-10-15 23:20] VITALS: BP 124/78; PULSE 89; TEMP 98.5
--- NOTE | 2019-10-16 02:32 | NUR ---
Pt resting in bed with eyes closed on CPAP machine. No s/s of pain seen. Fall precautions in place. Bed alarm on. Call light within reach.
[2019-10-16 03:53] VITALS: BP 95/63; PULSE 86; TEMP 97.8
--- NOTE | 2019-10-16 05:05 | NUR ---
Pt had uneventful night. Pt rested well in bed overnight on CPAP. No complaints of pain overnight. INT to left wrist without complications. Pt denies any other needs. Call light within reach. Bed alarm on.
[2019-10-16 07:23] VITALS: BP 122/75; PULSE 81; TEMP 97.7
[2019-10-16 07:32] LABS: HEMOGLOBIN 10.3 g/dl (12.5-16.0); MEAN CELL VOLUME 101 fl (80.0-100.0); MEAN CORPUSCULAR HEMOGLOBIN 32 pg (27.0-31.0); MEAN CORPUSCULAR HGB CONC 31 g/dl (33.0-37.0); MEAN PLATELET VOLUME 10.2 fl (7.4-10.4); PLATELET COUNT 430 K/mm3 (130-400); RED BLOOD COUNT 3.26 M/mm3 (4.10-5.30); REDCELL DISTRIBUTION WIDTH-CV 18.4 % (11.5-14.5)
--- NOTE | 2019-10-16 07:39 | NUR ---
PT BS HYPOACTIVE, PT PLEASANT, VERY UNSTEADY ON TRANSFER TO BEDSIDE COMMODE, 2 ASSIST NEEDED. PT HAS NO COMPLAINTS AT THIS TIME. ASSESSMENT PERFORMED, BED IN LOW POSITION, FALL GOWN AND BRACELET AND SOCKS ON, FALL SIGNS ON DOOR. PT OPEN TO REHAB. NO OTHER NEEDS AT THIS TIME.
[2019-10-16 07:40] LABS: CALCIUM 9.2 mg/dL (8.4-10.2); CREATININE, serum 1.53 (0.52-1.25); POTASSIUM 3.8 mmol/L (3.4-5.0)
[2019-10-16 08:49] LABS: BAND 2 % (0-10); NEUTROPHILS 37 % (42.0-75.2)
[2019-10-16 08:50] LABS: HYPOCHROMIA 1+; LYMPHOCYTE 56 % (20.0-51.0); PLATELET ESTIMATE NORMAL (NORMAL)
[2019-10-16 11:20] VITALS: BP 135/76; PULSE 97; TEMP 98
--- NOTE | 2019-10-16 11:29 | NUR ---
PT is recommending post-acute rehab for the patient. SW met with the patient to discuss post-acute rehab. The patient discharged from the hospital on 09/05 and went to her mother and fathers home. The patient reports that she stayed with her parents for a week and then returned back to her home. She states that since being at home, she has been falling a lot. The patient reports that she would be agreeable to post-acute rehab. SW discussed long-term care. The patient reports that she does not want to be at a facility forever. SW contacted and faxed a referrals to [facility], [facility], [facility], [facility], [facility], [facility], [facility], and [facility]. RANJEET consulted IPR Director, Mellisa. Cristiana, at [facility], reports that they are not able to accept the patient. Cristiana states that if the patient is wanting long-term care, then they could reconsider. SW awaiting screens.
--- NOTE | 2019-10-16 12:22 | NUR ---
PT BANDAGE ON LEFT CALF CHANGED. LACERATION SITE HAS STITCHES PRESENT, NO REDNESS AROUND SITE. PT STARTED COMPLAINING OF ONSET OF HEADACHE, IMITREX AND NORCO GIVEN. NO OTHER NEEDS AT THIS TIME.
--- NOTE | 2019-10-16 13:52 | NUR ---
Chitra, at [facility], reports that they are unable to accept the patient. Sonali, at [facility], reports that they are unable to accept the patient. This SW had worked with Belen, APS worker, on the patient during her last hospital stay. RANJEET contacted Belen. Belen reports that the patient had been doing better and that she had just closed the patient's case. RANJEET made a new APS report. APS intake ID#[id number].
--- NOTE | 2019-10-16 13:57 | NUR ---
pt given medication for headache, tele removed, jewlery removed, pt taken down to MRI via wheelchair.
--- NOTE | 2019-10-16 14:45 | NUR ---
Bekah, of [facility], reports that they are unable to accept the patient.
--- NOTE | 2019-10-16 15:16 | NUR ---
SW contacted and faxed a referral to [facility], [facility], [facility], and [facility]. [facility] reports that they do not have a female bed available at this time.
--- NOTE | 2019-10-16 15:30 | NUR ---
PT RETURNED FROM MRI, REPORTING HEADACHE 12/13, WILL GIVE NORCO WHEN DUE.
[2019-10-16 15:44] VITALS: BP 133/74; PULSE 93; TEMP 98.2
--- NOTE | 2019-10-16 17:13 | NUR ---
pt in bed, still reporting headache, pt pleasant, mri negative, pt reported being from her children and appeared very sad about this. uneventful shift for pt. no other needs at this time.
[2019-10-16 19:31] VITALS: BP 133/71; PULSE 99; TEMP 98.3
--- NOTE | 2019-10-16 20:50 | NUR ---
Pt assessment completed and documented. Pt resting in bed at this time watching television. Pt alert and oriented x4. Denies pain at this time. INT to left wrist patent and without complications. Pt denies any other needs at this time. Fall precautions in place. Bed alarm on. Call light within reach. Will continue to monitor.
[2019-10-17] VITALS (7 sets, daily range): BP systolic 125–146; BP diastolic 64–100; PULSE 82–114; TEMP 97.3–98.9
--- NOTE | 2019-10-17 05:22 | NUR ---
Pt had uneventful shift. Pt rested well throughout the night on CPAP. Denied pain overnight. Pt assisted to bedside commode a few times during the night with walker and gait belt. INT to right wrist without complications. Pt denies any other needs. Fall precautions in place. Bed alarm on. Call light within reach. Will continue to monitor.
--- NOTE | 2019-10-17 06:41 | NUR ---
Report given to PATRICIA Perry
[2019-10-17 06:42] LABS: HEMOGLOBIN 10.2 g/dl (12.5-16.0); MEAN CELL VOLUME 100 fl (80.0-100.0); MEAN CORPUSCULAR HEMOGLOBIN 32 pg (27.0-31.0); MEAN CORPUSCULAR HGB CONC 32 g/dl (33.0-37.0); MEAN PLATELET VOLUME 10.2 fl (7.4-10.4); PLATELET COUNT 413 K/mm3 (130-400); RED BLOOD COUNT 3.23 M/mm3 (4.10-5.30); REDCELL DISTRIBUTION WIDTH-CV 18.5 % (11.5-14.5)
[2019-10-17 06:43] LABS: HEMATOCRIT 32.2 % (37.0-47.0)
[2019-10-17 06:55] LABS: CALCIUM 9.3 mg/dL (8.4-10.2); CREATININE, serum 1.37 (0.52-1.25); POTASSIUM 3.6 mmol/L (3.4-5.0)
[2019-10-17 07:29] LABS: BAND 2 % (0-10); EOSINOPHIL 1 % (0-4); LYMPHOCYTE 49 % (20.0-51.0); NEUTROPHILS 42 % (42.0-75.2); PLATELET ESTIMATE NORMAL (NORMAL)
--- NOTE | 2019-10-17 08:10 | NUR ---
PT DENIES PAIN OR DISCOMFORT, IN BED, BED IN LOW POSITIONS, CALL LIGHT WITHIN REACH, MEDICATIONS GIVEN, ASSESSMENT PERFORMED. NO OTHER NEEDS AT THIS TIME.
--- NOTE | 2019-10-17 08:38 | NUR ---
[facility] reports that they do not have a bed available at this time.
--- NOTE | 2019-10-17 09:25 | NUR ---
Kevin, at [facility], reports that they are unable to accept the patient.
[2019-10-17] MEDS ORDERED: LASIX 40MG TABL40 MG PO (10:07)
--- NOTE | 2019-10-17 10:19 | NUR ---
Teena, at [facility], reports that they would like to accept the patient today; pending auth from insurance. RANJEET met with the patient and had the patient's mother (Cynthia) on speaker phone. The patient is agreeable to going to [facility]. Cynthia reports that her can provide transport for the patient. RANJEET notified the clinical team. Awaiting auth from insurance.
--- NOTE | 2019-10-17 13:44 | NUR ---
PT COMPLAINING OF NEW ONSET OF HEADACHE. WILL BRING IMITREX AND NORCO.
--- NOTE | 2019-10-17 15:55 | NUR ---
Teena, at [facility], reports that they still do not have auth from insurance. She states that insurance informed her that they should have an answer by the end of the day or tomorrow morning. SW notified the clinical team. SW updated the patient and the patient's mother, via speaker phone. SW to continue to follow.
--- NOTE | 2019-10-17 16:05 | NUR ---
Eun, at [facility], reports that they are unable to accept the patient.
--- NOTE | 2019-10-17 16:06 | NUR ---
PT REPORTS NAUSEA DESPITE ZOFRAN ADMINISTRATION. PT ALSO STATES THIS IS PROBABLE DUE TO STRESS ABOUT HER SITUATION WITH INSURANCE AND REHAB PLACEMENT. PT ALSO REPORTS HEADACHE UNRELIEVED BY NORCO ADMINISTRATION, TYLENOL ADMINISTERED.
--- NOTE | 2019-10-17 18:25 | NUR ---
PT DUE FOR NORCO FOR HEADACHE. PT PLEASANT, STRESSED ABOUT INSURANCE APPROVING REHAB. PT STILL UNSTABLE DURING TRANSFERS ON AND OFF OF COMMODE. BED BATH GIVEN. PT HAS NO OTHER NEEDS AT THIS TIME.
--- NOTE | 2019-10-17 20:39 | NUR ---
Pt assessment completed and documented. Pt resting in bed at this time watching television. Pt alert and oriented x4. Pt denies pain at this time. INT to left wrist CDI. Pt denies any other needs at this time. Fall precautions in place. Bed alarm on. Call light within reach. Will continue to monitor.
[2019-10-18 00:58] VITALS: BP 111/64; PULSE 94; TEMP 98.3
[2019-10-18 05:09] VITALS: BP 119/74; PULSE 95; TEMP 98.3
--- NOTE | 2019-10-18 05:51 | NUR ---
Pt had uneventful shift. Pt stated she was not able to get much rest tonight. Pt on CPAP from midnight until 0540. Denied pain. INT to left wrist patent and free of complications. Pt up x2 assist with gait belt to bedside commode a few times overnight. Pt denies any other needs at this time. Fall precautions in place. Bed alarm on. Call light within reach
--- NOTE | 2019-10-18 07:24 | NUR ---
Report given to PATRICIA Reza
--- NOTE | 2019-10-18 07:31 | NUR ---
PATIENT ON ROOM, AIR AT 95% SPO2, BS CL T/O. GELA WALDEN.
[2019-10-18 07:47] VITALS: BP 126/80; PULSE 90; TEMP 97.4
--- NOTE | 2019-10-18 07:56 | NUR ---
PT AOX4. DENIES PAIN. RESTING IN BED. NO NEEDS AT THIS TIME
--- NOTE | 2019-10-18 09:15 | NUR ---
@0900 PT REPORTTED FRONTAL AND OCCIPITAL MIGRAINE 8/10 THROBBING WITH PHOTOSENSITIVITY AND NAUSEA. REQUESTED TO BE GIVEN NORCO AND IMITREX COCURRENTLY HOME REGIMEN. GIVEN TOGETHER YESTERDAY NO CONCERNS. MEDS GIVEN CHARTED.
--- NOTE | 2019-10-18 10:18 | NUR ---
Teena, at [facility], reports that they received authorization from the patient's insurance and that they are able to accept the patient today. The accepting provider would be Debbie Bonilla PA-C. RANJEET notified the clinical team of this and provided them with Debbie's phone number for the doc-to-doc. RANJEET informed the patient and contacted and updated the patient's mother, Cynthia. The patient is agreeable wih going to [facility]. The patient is to discharge today, 10/17, to [facility]. Transportation to be by private vehicle, via the patient's father around 1800. RANJEET informed Teena at [facility] and the patient's RN of this. No additional needs at this time.
--- NOTE | 2019-10-18 11:41 | NUR ---
First visit from the material worker. No needs right now.
[2019-10-18 11:46] VITALS: BP 131/75; PULSE 78; TEMP 98.1
== END 2019-10-18 13:45 | disposition swing bed (61) | DRG 641 ==
LOC: COL.ER 11:45 → MEDICAL 14:48
PROVIDERS: Family Medicine; Physician Assistant; ADMIT Internal Medicine
PROC: 0HQLXZZ Repair Left Lower Leg Skin, External Approach (ICD-10-PCS; principal; 2019-10-14)
DX: E87.2 Acidosis (principal); G43.909 Migraine, unspecified, not intractable, without status migrainosus; M79.7 Fibromyalgia; F41.1 Generalized anxiety disorder; F31.9 Bipolar disorder, unspecified; D64.9 Anemia, unspecified; G47.33 Obstructive sleep apnea (adult) (pediatric); E86.0 Dehydration; R62.7 Adult failure to thrive; H53.2 Diplopia; Z88.7 Allergy status to serum and vaccine; Z68.39 Body mass index [BMI] 39.0-39.9, adult; G89.29 Other chronic pain; K59.00 Constipation, unspecified; Z79.84 Long term (current) use of oral hypoglycemic drugs; S81.812A Laceration without foreign body, left lower leg, initial encounter; W19.XXXA Unspecified fall, initial encounter; Z91.81 History of falling; Y92.009 Unspecified place in unspecified non-institutional (private) residence as the place of occurrence of the external cause; E66.9 Obesity, unspecified; R53.81 Other malaise; F17.210 Nicotine dependence, cigarettes, uncomplicated; Z79.52 Long term (current) use of systemic steroids; Z79.891 Long term (current) use of opiate analgesic; Z79.82 Long term (current) use of aspirin; Z90.710 Acquired absence of both cervix and uterus; Z86.711 Personal history of pulmonary embolism; Z88.6 Allergy status to analgesic agent; I95.9 Hypotension, unspecified
CPT/HCPCS: 99222-AI; 99231-AI; 99232-AI; 99239; J1650; J2405; J7030; J7120; J7512

== ENCOUNTER 2019-11-23 17:25 | Outpatient (CLI) | payer MEDICAID ==
[~2019-11-23] VITALS: Ht 157.6 cm; Wt 113.0 kg
[~2019-11-23 17:25] MED LIST changes: +LASIX 40MG TABL40 MG PO
[2019-11-23 18:12] VITALS: BP 96/72; PULSE 87; TEMP 97.9
[2019-11-23 18:47] VITALS: BP 93/73; PULSE 93
--- NOTE | 2019-11-23 18:48 | NUR ---
PT TOLERATED INJECTIONS FOR MIGRAINE WELL. SHE WAITED 30 MINUTES AFTER SHOTS BEFORE LEAVING UNIT. I WALKED HER TO EXIT WHERE HE DAD PICKED HER UP. PT HAD STEADY GAIT. HEADACHE IMPROVING.
== END 2019-11-23 18:49 | disposition home or self-care (01) ==
LOC: EUO 17:25
DX: G43.719 Chronic migraine without aura, intractable, without status migrainosus (principal); R11.2 Nausea with vomiting, unspecified
CPT/HCPCS: J1170; J2550

== ENCOUNTER → 2019-11-28 | Outpatient (CLI) | payer MEDICAID | LOC: ZCOL.LAB 16:31 | DX: Z20.828 Contact with and (suspected) exposure to other viral communicable diseases (principal) ==

== ENCOUNTER 2020-01-06 15:02 | Emergency (ER) | payer MEDICAID ==
[~2020-01-06] VITALS: Ht 157.5 cm; Wt 118.6 kg
[2020-01-06 15:08] VITALS: TEMP 98.2
[2020-01-06 17:30] VITALS: BP 111/78; PULSE 96
== END 2020-01-06 17:34 | disposition home or self-care (01) ==
LOC: COL.ER 15:02
DX: R07.89 Other chest pain (principal); F41.9 Anxiety disorder, unspecified; F32.9 Major depressive disorder, single episode, unspecified; M79.7 Fibromyalgia; G89.29 Other chronic pain; F17.210 Nicotine dependence, cigarettes, uncomplicated; Z86.711 Personal history of pulmonary embolism; Z88.6 Allergy status to analgesic agent; Z79.891 Long term (current) use of opiate analgesic
CPT/HCPCS: J1170; J2405

== ENCOUNTER → 2020-01-15 | Outpatient (CLI) | payer MEDICAID | LOC: MHCPAIN 10:00 | DX: M47.817 Spondylosis without myelopathy or radiculopathy, lumbosacral region (principal); M54.5 Low back pain; M53.3 Sacrococcygeal disorders, not elsewhere classified; G89.29 Other chronic pain | CPT/HCPCS: G0463 ==

== ENCOUNTER → 2020-01-16 | Outpatient (CLI) | payer MEDICAID | LOC: COL.RAD 07:57 | DX: K80.20 Calculus of gallbladder without cholecystitis without obstruction (principal) ==

== ENCOUNTER → 2020-01-17 | Outpatient (CLI) | payer MEDICAID | LOC: MHCPAIN 09:13 | DX: M79.18 Myalgia, other site (principal); M54.2 Cervicalgia; M54.6 Pain in thoracic spine; M54.5 Low back pain; G89.29 Other chronic pain | CPT/HCPCS: J1040 ==

== ENCOUNTER 2020-01-25 10:17 | Observation (INO) | payer MEDICAID ==
[~2020-01-25] VITALS: Ht 157.5 cm; Wt 116.6 kg
[2020-01-25] VITALS (13 sets, daily range): BP systolic 106–131; BP diastolic 62–79; PULSE 85–115; TEMP 98–98.3
[2020-01-25] MEDS ORDERED: DEPAKOTE ER 50500 MG PO (11:19)
[2020-01-25] MEDS ORDERED: SEROQUEL50 MG PO ×2 (11:21→11:24)
[2020-01-25] MEDS ORDERED: LASIX 40MG TABL40 MG PO (11:25)
[2020-01-25] MEDS ORDERED: NEURONTIN100 MG/CAP PO (11:27)
[2020-01-25] MEDS ORDERED: IMITREX100 MG PO (11:30)
[2020-01-25] MEDS ORDERED: AMITIZA24 MCG PO (11:31)
[2020-01-25] MEDS ORDERED: NORCO 325 MG-101 TAB PO (11:32)
[2020-01-25] MEDS ORDERED: UBRELVY50 MG PO (11:33)
[2020-01-25] MEDS ORDERED: EMGALITY120 MG/1 M SQ (11:33)
[2020-01-25] MEDS ORDERED: ANTIVERT 25MG25 MG PO (11:34)
[2020-01-25] MEDS ORDERED: PRISTIQ25 MG PO (11:35)
[2020-01-25] MEDS ORDERED: TYLENOL 500MG500 MG PO (11:36)
[2020-01-25] MEDS ORDERED: NIGHT TIME SLEE25 MG PO (11:37)
[2020-01-25] MEDS ORDERED: LAMICTAL150 MG PO (11:38)
[2020-01-25] MEDS ORDERED: ADIPEX-P37.5 MG PO (11:38)
[2020-01-25] MEDS ORDERED: ZYRTEC 10MG10 MG PO (11:40)
[2020-01-25] MEDS ORDERED: TOPROL XL 25MG25 MG PO (11:40)
[2020-01-25] MEDS ORDERED: PREVACID 30MG30 M1 PO (11:41)
[2020-01-25] MEDS ORDERED: NORCO 325 MG-7.1 TAB PO (14:59)
[2020-01-26 00:26] VITALS: BP 112/71; PULSE 100; TEMP 97.9
[2020-01-26 03:39] VITALS: BP 111/71; PULSE 92; TEMP 98.1
[2020-01-26 08:22] VITALS: BP 106/66; PULSE 102; TEMP 97.6
[2020-01-26 10:20] VITALS: BP 119/71; PULSE 102; TEMP 97.9
[2020-01-26 13:15] LABS: CALCIUM 8.5 mg/dL (8.4-10.2); CREATININE, serum 1.09 (0.52-1.25); POTASSIUM 3.4 mmol/L (3.4-5.0)
[2020-01-26] MEDS ORDERED: PERCOCET 325 MG1 TAB PO (15:40)
[2020-01-26] MEDS ORDERED: ZOFRAN ODT4 MG PO (15:41)
[2020-01-26 16:22] VITALS: BP 106/65; PULSE 106; TEMP 97.9
[2020-01-26 20:47] VITALS: BP 115/66; PULSE 112; TEMP 98.2
[2020-01-27 02:47] VITALS: BP 114/70; PULSE 87; TEMP 98.4
[2020-01-27 08:12] VITALS: BP 111/70; PULSE 97; TEMP 98.4
== END 2020-01-27 11:20 | disposition home or self-care (01) ==
LOC: SDCO 10:17 → JCC 15:20
PROVIDERS: ADMIT Surgery
DX: K80.10 Calculus of gallbladder with chronic cholecystitis without obstruction (principal); F11.90 Opioid use, unspecified, uncomplicated; N18.9 Chronic kidney disease, unspecified; J45.909 Unspecified asthma, uncomplicated; G47.33 Obstructive sleep apnea (adult) (pediatric); Z20.828 Contact with and (suspected) exposure to other viral communicable diseases; F31.9 Bipolar disorder, unspecified; F42.9 Obsessive-compulsive disorder, unspecified; F25.9 Schizoaffective disorder, unspecified; F41.9 Anxiety disorder, unspecified; K21.9 Gastro-esophageal reflux disease without esophagitis; D64.9 Anemia, unspecified; M79.7 Fibromyalgia; G89.29 Other chronic pain; Z68.42 Body mass index [BMI] 45.0-49.9, adult; E66.01 Morbid (severe) obesity due to excess calories; Z79.899 Other long term (current) drug therapy; Z87.11 Personal history of peptic ulcer disease; Z87.891 Personal history of nicotine dependence; Z88.8 Allergy status to other drugs, medicaments and biological substances
CPT/HCPCS: G0378; J0330; J0690; J1100; J1170; J1885; J2250; J2405; J2550; J2704; J3010; J7030; J7070; J7512

== ENCOUNTER 2020-04-23 22:06 | Emergency (ER) | payer MEDICAID ==
[~2020-04-23] VITALS: Ht 157.5 cm; Wt 113.6 kg
[~2020-04-23 22:06] MED LIST changes: +EMGALITY120 MG/1 M SQ; +NIGHT TIME SLEE25 MG PO; +NORCO 325 MG-7.1 TAB PO; +PERCOCET 325 MG1 TAB PO; +PRISTIQ25 MG PO; +TOPROL XL 25MG25 MG PO; +TYLENOL 500MG500 MG PO; +UBRELVY50 MG PO
[2020-04-23 22:08] VITALS: TEMP 98.1
[2020-04-23 22:39] LABS: COLLECTION METHOD CLEAN CATCH
[2020-04-23 22:42] LABS: HEMOGLOBIN 11.7 g/dl (12.5-16.0); MEAN CELL VOLUME 96 fl (80.0-100.0); MEAN CORPUSCULAR HEMOGLOBIN 31 pg (27.0-31.0); MEAN CORPUSCULAR HGB CONC 32 g/dl (33.0-37.0); MEAN PLATELET VOLUME 9.4 fl (7.4-10.4); PLATELET COUNT 472 K/mm3 (130-400); RED BLOOD COUNT 3.77 M/mm3 (4.10-5.30); REDCELL DISTRIBUTION WIDTH-CV 16.3 % (11.5-14.5)
[2020-04-23 22:44] LABS: PH 7 (5-8); SQUAMOUS EPITHELIAL 0-2 /hpf; URINE APPEARANCE Clear; URINE BACTERIA None Seen /hpf; URINE BILIRUBIN Negative (NEGATIVE); URINE BLOOD Negative (NEGATIVE); URINE COLOR Yellow; URINE GLUCOSE Negative (NEGATIVE); URINE KETONE Negative (NEGATIVE); URINE LEUKOCYTE ESTERASE Negative (NEGATIVE); URINE NITRATE Negative (NEGATIVE); URINE PROTEIN(semi-quant) Negative (NEGATIVE); URINE RBC None Seen /hpf; URINE UROBILINOGEN Negative (NEGATIVE); URINE WBC 0-2 /hpf
[2020-04-23 22:45] LABS: HEMATOCRIT 36.1 % (37.0-47.0)
[2020-04-23 22:52] LABS: ALBUMIN 3.6 gm/dL (3.5-5.0); BILIRUBIN,TOTAL 0.5 mg/dL (0.0-1.0); CALCIUM 9.2 mg/dL (8.4-10.2); CREATININE, serum 1.33 (0.52-1.25); POTASSIUM 3.2 mmol/L (3.4-5.0); TOTAL PROTEIN 6.8 gm/dL (6.4-8.2)
[2020-04-23 22:57] LABS: ANISOCYTOSIS 1+; BASOPHIL 1 % (0-2); EOSINOPHIL 3 % (0-4); LYMPHOCYTE 28 % (20.0-51.0); NEUTROPHILS 56 % (42.0-75.2); PLATELET ESTIMATE INCREASED (NORMAL)
[2020-04-23 22:58] LABS: HYPOCHROMIA 2+
[2020-04-23] MEDS ORDERED: K-DUR20 MEQ PO (23:38)
[2020-04-23 23:42] VITALS: BP 104/67; PULSE 85
== END 2020-04-24 | disposition home or self-care (01) ==
LOC: COL.ER 22:06
PROVIDERS: Nurse Practitioner Primary Care
DX: R53.1 Weakness (principal); G89.29 Other chronic pain; G43.909 Migraine, unspecified, not intractable, without status migrainosus; M79.7 Fibromyalgia; F41.9 Anxiety disorder, unspecified; F32.9 Major depressive disorder, single episode, unspecified; E66.9 Obesity, unspecified; Z86.711 Personal history of pulmonary embolism; Z88.6 Allergy status to analgesic agent; Z88.8 Allergy status to other drugs, medicaments and biological substances; Z87.891 Personal history of nicotine dependence; Z79.52 Long term (current) use of systemic steroids; Z79.84 Long term (current) use of oral hypoglycemic drugs; Z68.42 Body mass index [BMI] 45.0-49.9, adult
CPT/HCPCS: J7030

== ENCOUNTER 2020-04-24 07:40 | Emergency (ER) | payer MEDICAID ==
[~2020-04-24] VITALS: Ht 157.5 cm; Wt 118.2 kg
[~2020-04-24 07:40] MED LIST changes: +K-DUR20 MEQ PO
[2020-04-24 07:45] VITALS: TEMP 97.6
--- NOTE | 2020-04-24 15:26 | NUR ---
Design Eng consulted for the patient due to frequent falls, ems calls, help at home cannot lift off floor, and concern for safety at home. Molding Technician met with the patient. The patient lives alone. She [facility] three days a week on Mondays, Wednesday, and Fridays. The aide assist wtih cooking, cleaning, showers, groceries, and any other errands the patient may need. The patient ambulates with a walker at baseline. The patient has a life alert necklace. RANJEET addressed the dangers of frequent falls and discussed the possiblity of needing a higher level of care such as assisted living or long-term care. The patient states that she just wants to go home. RANJEET collaborted this information with the ED physician and the patient's nurse. After leaving the ED, the patient's nurse contacted this RANJEET to discuss placment if the patient could do it from the ED. RANJEET contacted Jaime with [facility] and since the patient only has Medicaid [facility] it does not cover therapy or skilled care. She would have to go as long-term care, no benefits. RANJEET contacted, Mellisa [facility] Director and she is familiar with the patient. She reports authorization is required. The patient did not go to post acute rehab and discharged home. The patient's nurse and this SW attempted to contact the patient's family for transporation home. The message states the number is vacant. RANJEET contacted [facility] and collaborated with Shannan the Staff Command And Control Officer/Straightening Roll Operator to set up transportation for the patient. RANJEET made APS report, intake # [id number]. RANJEET collaborated the above information with the patient's nurse.
[2020-04-24 15:52] VITALS: BP 125/87; PULSE 75
== END 2020-04-24 11:35 | disposition home or self-care (01) ==
LOC: COL.ER 07:40
DX: R53.1 Weakness (principal); G43.909 Migraine, unspecified, not intractable, without status migrainosus; M79.7 Fibromyalgia; F41.9 Anxiety disorder, unspecified; F32.9 Major depressive disorder, single episode, unspecified; E66.9 Obesity, unspecified; G89.29 Other chronic pain; Z86.711 Personal history of pulmonary embolism; Z90.49 Acquired absence of other specified parts of digestive tract; Z90.710 Acquired absence of both cervix and uterus; Z88.6 Allergy status to analgesic agent; Z88.8 Allergy status to other drugs, medicaments and biological substances; Z87.891 Personal history of nicotine dependence; Z79.52 Long term (current) use of systemic steroids; Z79.84 Long term (current) use of oral hypoglycemic drugs

== ENCOUNTER 2020-04-24 22:26 | Emergency (ER) | payer MEDICAID ==
[~2020-04-24] VITALS: Ht 157.5 cm; Wt 113.6 kg
[2020-04-24 22:28] VITALS: TEMP 98
[2020-04-24 22:51] LABS: BASO % 0.2 % (0.0-2.0); EOS % 0.1 % (0-4.0); GRAN # 5.7 (1.4-6.5); GRAN % 61.7 % (42.2-75.2); HEMOGLOBIN 10.6 g/dl (12.5-16.0); LYMPH # 2.2 (1.2-3.4); MEAN CORPUSCULAR HEMOGLOBIN 32 pg (27.0-31.0); MEAN CORPUSCULAR HGB CONC 31 g/dl (33.0-37.0); MEAN PLATELET VOLUME 9.6 fl (7.4-10.4); MONO # 1.2 (0.1-0.6); MONO % 12.9 % (1.7-9.3); PLATELET COUNT 391 K/mm3 (130-400); RED BLOOD COUNT 3.33 M/mm3 (4.10-5.30); REDCELL DISTRIBUTION WIDTH-CV 16.8 % (11.5-14.5)
[2020-04-24 22:55] LABS: HEMATOCRIT 34.1 % (37.0-47.0); MEAN CELL VOLUME 102 fl (80.0-100.0)
[2020-04-24 23:11] LABS: BILIRUBIN,TOTAL 0.4 mg/dL (0.0-1.0); CALCIUM 8.6 mg/dL (8.4-10.2); CREATININE, serum 1.26 (0.52-1.25); POTASSIUM 3.7 mmol/L (3.4-5.0); TOTAL PROTEIN 5.9 gm/dL (6.4-8.2)
[2020-04-25 01:31] VITALS: BP 102/74; PULSE 88
[2020-04-26] MEDS ORDERED: PRISTIQ 50 MG T50 MG PO (17:21)
[2020-04-26] MEDS ORDERED: ANTIVERT 25MG25 MG PO (19:22)
[2020-04-26] MEDS ORDERED: FLEXERIL 1010 MG/TAB PO (19:22)
[2020-04-26] MEDS ORDERED: BUMEX2 MG PO (19:23)
[2020-04-26] MEDS ORDERED: NORCO 325 MG-101 TAB PO (21:18)
[2020-04-26] MEDS ORDERED: ZOFRAN8 MG PO (21:26)
== END 2020-04-25 01:45 | disposition home or self-care (01) ==
LOC: COL.ER 22:26
PROVIDERS: Family Medicine
DX: R53.1 Weakness (principal); R29.6 Repeated falls; F41.9 Anxiety disorder, unspecified; F31.9 Bipolar disorder, unspecified; G47.33 Obstructive sleep apnea (adult) (pediatric); E66.9 Obesity, unspecified; Z68.42 Body mass index [BMI] 45.0-49.9, adult; Z90.89 Acquired absence of other organs; Z90.710 Acquired absence of both cervix and uterus; Z88.6 Allergy status to analgesic agent; Z88.8 Allergy status to other drugs, medicaments and biological substances; Z79.84 Long term (current) use of oral hypoglycemic drugs

== ENCOUNTER 2020-04-26 10:27 | Observation (INO) | payer MEDICAID ==
[~2020-04-26] VITALS: Ht 157.5 cm; Wt 114.3 kg
[2020-04-26 10:50] LABS: BASO # 0.1 (0.0-0.2); BASO % 0.4 % (0.0-2.0); EOS # 0.2 (0.0-0.7); EOS % 1.6 % (0-4.0); GRAN # 8.1 (1.4-6.5); HEMOGLOBIN 10.4 g/dl (12.5-16.0); LYMPH # 2.5 (1.2-3.4); LYMPH % 20.3 % (20.0-51.0); MEAN CELL VOLUME 100 fl (80.0-100.0); MEAN CORPUSCULAR HEMOGLOBIN 31 pg (27.0-31.0); MEAN CORPUSCULAR HGB CONC 32 g/dl (33.0-37.0); MEAN PLATELET VOLUME 9.6 fl (7.4-10.4); MONO # 1.4 (0.1-0.6); MONO % 11.6 % (1.7-9.3); PLATELET COUNT 462 K/mm3 (130-400); RED BLOOD COUNT 3.31 M/mm3 (4.10-5.30); REDCELL DISTRIBUTION WIDTH-CV 17.3 % (11.5-14.5)
[2020-04-26 10:54] LABS: ALBUMIN 3.1 gm/dL (3.5-5.0); BILIRUBIN,TOTAL 0.5 mg/dL (0.0-1.0); CALCIUM 8.7 mg/dL (8.4-10.2); CREATININE, serum 1.32 (0.52-1.25); POTASSIUM 3.4 mmol/L (3.4-5.0); TOTAL PROTEIN 6.1 gm/dL (6.4-8.2)
--- NOTE | 2020-04-26 15:34 | NUR ---
Senior Sales Director consulted for the patient. Social Workers met with the patient to discuss the failure to care for herself at home. She was agreeable to sending referrals. Referrals sent to Yue Ivey, RODR[facility] Cano, Lou MENDEZ, [facility], [facility], [facility], [facility], and [facility]. Yulisa reports they may possibly be able to not until Wednesday. [facility] and [facility], and [facility] could not accept. If placement cannot be found the patient will be discharge home with continued home health services care from [facility]. An APS reports was made, intake # [id number]. SW collaborated the above information with the patient's nurse.
[2020-04-26] MEDS ORDERED: PRISTIQ 50 MG T50 MG PO (17:21)
[2020-04-26] MEDS ORDERED: FLEXERIL 1010 MG/TAB PO (19:22)
[2020-04-26] MEDS ORDERED: ANTIVERT 25MG25 MG PO (19:22)
[2020-04-26] MEDS ORDERED: BUMEX2 MG PO (19:23)
--- NOTE | 2020-04-26 20:10 | NUR ---
PT ARRIVES VIA CART FROM ED. ASSISTED TO BED BY ER STAFF AND SURGICAL STAFF. HAS BEEN FALLING AT HOME AND NUMEROUS BRUISES OVER BODY. HAS SL TO RIGHT AC WITHOUT REDNESS OR SWELLING. IS ALERT AND ORIENTED X4. COOPERATIVE WITH STAFF.
[2020-04-26] MEDS ORDERED: NORCO 325 MG-101 TAB PO (21:18)
[2020-04-26 21:23] VITALS: BP 118/66; PULSE 104; TEMP 98.3
[2020-04-26] MEDS ORDERED: ZOFRAN8 MG PO (21:26)
--- NOTE | 2020-04-26 22:49 | NUR ---
Assisted to bathroom, gait unsteady and spastic. Voids and UA obtained. Back to bed with assist. Bed Alarm on.
[2020-04-26 23:04] LABS: COLLECTION METHOD CLEAN CATCH
[2020-04-26 23:10] LABS: MUCOUS Present /lpf; PH 6 (5-8); SQUAMOUS EPITHELIAL 0-2 /hpf; URINE APPEARANCE Clear; URINE BACTERIA Rare /hpf; URINE BILIRUBIN Negative (NEGATIVE); URINE BLOOD Negative (NEGATIVE); URINE COLOR Yellow; URINE GLUCOSE Negative (NEGATIVE); URINE KETONE Negative (NEGATIVE); URINE LEUKOCYTE ESTERASE 2+ (NEGATIVE); URINE NITRATE Negative (NEGATIVE); URINE PROTEIN(semi-quant) Negative (NEGATIVE); URINE RBC 0-2 /hpf; URINE UROBILINOGEN Negative (NEGATIVE)
[2020-04-26 23:49] VITALS: BP 107/68; PULSE 99; TEMP 98.1
[2020-04-27 04:01] VITALS: BP 113/60; PULSE 95; TEMP 97.8
--- NOTE | 2020-04-27 06:00 | NUR ---
Takes AM med without problem. BS=63, OJ given.
[2020-04-27 06:53] LABS: HEMOGLOBIN 10.2 g/dl (12.5-16.0); MEAN CELL VOLUME 99 fl (80.0-100.0); MEAN CORPUSCULAR HEMOGLOBIN 32 pg (27.0-31.0); MEAN CORPUSCULAR HGB CONC 32 g/dl (33.0-37.0); MEAN PLATELET VOLUME 9.6 fl (7.4-10.4); PLATELET COUNT 421 K/mm3 (130-400); RED BLOOD COUNT 3.18 M/mm3 (4.10-5.30); REDCELL DISTRIBUTION WIDTH-CV 17.3 % (11.5-14.5)
[2020-04-27 07:00] LABS: HEMATOCRIT 31.6 % (37.0-47.0)
[2020-04-27 07:04] LABS: CALCIUM 8.2 mg/dL (8.4-10.2); CREATININE, serum 1.17 (0.52-1.25)
[2020-04-27 07:25] VITALS: BP 102/57; PULSE 96; TEMP 97.6
--- NOTE | 2020-04-27 10:57 | NUR ---
RANJEET update. RANJEET called [facility]it [facility], and Sergio, none have accepted yet and will review on wednesday. Najma will not accept due to age and reports that they only accept the frail and elderly. Faxed updates to all nursing and will continue to follow.
--- NOTE | 2020-04-27 11:00 | NUR ---
SW faxed record updates to [facility], [facility], and [facility]. SW will continue to follow.
[2020-04-27 11:21] VITALS: BP 100/46; PULSE 106; TEMP 98.1
--- NOTE | 2020-04-27 16:08 | NUR ---
Dr Spaulding here to see patient.
[2020-04-27 16:29] VITALS: BP 103/50; PULSE 101; TEMP 98.2
[2020-04-27 19:34] VITALS: BP 127/71; PULSE 105; TEMP 98
--- NOTE | 2020-04-27 20:00 | NUR ---
PT ASSISTED FROM CHAIR TO BATHROOM, THEN TO BED. ONE ASSIST AND GAIT BELT. IS ON POTASSIUM PROTOCOL, 3.0 TODAY. WILL REPLACE TONIGHT. HAS SL TO RIGHT AC. IS ALERT AND ORIENTED X4. BRUISING OVER BODY CONTINUES. DOES NOT LIKE THE WRIST BRACE PROVIDED FOR HER AND ISN'T WEARING IT. BED ALARM ON FOR SAFETY.
--- NOTE | 2020-04-27 20:57 | NUR ---
MEDICATED WITH NORCO 7.5MG 1 TAB AND ZOFRAN 8MG PO AT THIS TIME.
[2020-04-28] VITALS (7 sets, daily range): BP systolic 99–157; BP diastolic 54–94; PULSE 90–101; TEMP 97.5–98.2
[2020-04-28 06:22] LABS: BASO % 0.4 % (0.0-2.0); EOS # 0.2 (0.0-0.7); EOS % 2.4 % (0-4.0); GRAN # 3.2 (1.4-6.5); GRAN % 37.9 % (42.2-75.2); LYMPH # 3.7 (1.2-3.4); MEAN CELL VOLUME 100 fl (80.0-100.0); MEAN CORPUSCULAR HGB CONC 32 g/dl (33.0-37.0); MEAN PLATELET VOLUME 9.5 fl (7.4-10.4); MONO # 1.3 (0.1-0.6); MONO % 15.1 % (1.7-9.3); PLATELET COUNT 403 K/mm3 (130-400); RED BLOOD COUNT 3.09 M/mm3 (4.10-5.30); REDCELL DISTRIBUTION WIDTH-CV 17.5 % (11.5-14.5)
[2020-04-28 06:29] LABS: HEMATOCRIT 30.8 % (37.0-47.0); HEMOGLOBIN 9.9 g/dl (12.5-16.0); MEAN CORPUSCULAR HEMOGLOBIN 32 pg (27.0-31.0)
[2020-04-28 06:35] LABS: CALCIUM 8.5 mg/dL (8.4-10.2); CREATININE, serum 1.1 (0.52-1.25); POTASSIUM 4.3 mmol/L (3.4-5.0)
--- NOTE | 2020-04-28 11:14 | NUR ---
Patient alert and oriented, answers questions appropriately. See assessment. No c/o pain or discomfort. No other c/o at this time.
--- NOTE | 2020-04-28 19:22 | NUR ---
During conversation, patient reports she frequently takes Lasix prn at home, states "I take it once to pee, and if I can't pee i keep taking it until I pee". Reviewed with patient on medication and how it is suppose to be taken. Verbalized understanding.
--- NOTE | 2020-04-28 21:27 | NUR ---
HS MEDS GIVEN INCLUDING NORCO FOR PAIN. LEFT WRIST BRACE APPLIED. HAVING DIFFICULTY URINATING, HAS 308 PER BLADDER SCAN. MARGARET NEON INSTALLER AT BEDSIDE, ENCOURAGED FLUIDS. PEPSI GIVEN. PT REPORTS DOUBLE VISION TODAY. SL FLUSHED TO RIGHT AC, NO REDNESS OR SWELLING NOTED.
--- NOTE | 2020-04-29 | NUR ---
ABLE TO URINATE. READY FOR BED.
[2020-04-29 04:46] VITALS: BP 125/73; PULSE 96; TEMP 97.5
--- NOTE | 2020-04-29 06:00 | NUR ---
NPO FOR MRI TODAY.
[2020-04-29 07:13] LABS: CALCIUM 8.5 mg/dL (8.4-10.2); CREATININE, serum 1.66 (0.52-1.25); POTASSIUM 3.9 mmol/L (3.4-5.0)
[2020-04-29 07:23] VITALS: BP 143/79; PULSE 101; TEMP 98.1
[2020-04-29 07:35] LABS: HEMOGLOBIN 10.3 g/dl (12.5-16.0); MEAN CELL VOLUME 102 fl (80.0-100.0); MEAN CORPUSCULAR HEMOGLOBIN 32 pg (27.0-31.0); MEAN CORPUSCULAR HGB CONC 31 g/dl (33.0-37.0); PLATELET COUNT 422 K/mm3 (130-400); RED BLOOD COUNT 3.23 M/mm3 (4.10-5.30); REDCELL DISTRIBUTION WIDTH-CV 18.1 % (11.5-14.5)
[2020-04-29 07:36] LABS: HEMATOCRIT 32.8 % (37.0-47.0)
[2020-04-29 08:25] LABS: BAND 1 % (0-10); EOSINOPHIL 3 % (0-4); LYMPHOCYTE 50 % (20.0-51.0); METAMYELOCYTE 2 % (0-0); NEUTROPHILS 32 % (42.0-75.2); PLATELET ESTIMATE INCREASED (NORMAL); TARGET CELLS 1+
[2020-04-29 08:26] LABS: ANISOCYTOSIS 1+
--- NOTE | 2020-04-29 09:17 | NUR ---
Patient to MRI
--- NOTE | 2020-04-29 10:48 | NUR ---
Patient called out requesting pain meds for back pain. 6/10 medications given per orders.
[2020-04-29 11:10] VITALS: BP 119/86; PULSE 97; TEMP 98.2
[2020-04-29 13:17] LABS: COLLECTION METHOD CLEAN CATCH
[2020-04-29 13:28] LABS: MUCOUS Present /lpf; PH 8 (5-8); SQUAMOUS EPITHELIAL 0-2 /hpf; URINE APPEARANCE Clear; URINE BACTERIA None Seen /hpf; URINE BILIRUBIN Negative (NEGATIVE); URINE BLOOD Negative (NEGATIVE); URINE COLOR Yellow; URINE GLUCOSE Negative (NEGATIVE); URINE KETONE Negative (NEGATIVE); URINE LEUKOCYTE ESTERASE 1+ (NEGATIVE); URINE NITRATE Negative (NEGATIVE); URINE PROTEIN(semi-quant) 2+ (NEGATIVE); URINE RBC 0-2 /hpf; URINE UROBILINOGEN Negative (NEGATIVE)
[2020-04-29 15:54] VITALS: BP 136/76; PULSE 99; TEMP 98.3
--- NOTE | 2020-04-29 17:06 | NUR ---
[facility] and [facility] declined referral. Yulisa continues to review referral. SW met with patient who states she does not want to go outside of [place] for placement and is not happy about going to a intermediate. Patient states however that she cannot go home or care for herself. SW explained to patient that she will need to go wherever placement can be found. SW contacted patient's mother, Lauren (ph#[phone]) to provide update. Lauren is agreeable to wherever placement can be found as she states she cannot care for patient at home.
--- NOTE | 2020-04-29 18:45 | NUR ---
Patient has done well throughout the day. Minimal needs. Has been up multiple times to restroom throughout the day with x1-2 assist and walker. Encouraged patient to increase fluid intake. Denies further needs at this time. Will report off to night clerk auditor.
[2020-04-29 20:25] VITALS: BP 118/69; PULSE 102; TEMP 97.7
--- NOTE | 2020-04-29 21:30 | NUR ---
PT TAKES HS MEDS INCLUDING NORCO FOR LEFT WRIST AND RIB PAIN. NOT WEARING THE WRIST SPLINT. HAS IVF INFUSING TO RIGHT ARM WITHOUT REDNESS OR SWELLING. OCCASIONAL DIFFICULTY VOIDING. GAIT MORE STEADY WHEN UP TO BATHROOM.
[2020-04-30 00:37] VITALS: BP 96/72; PULSE 98; TEMP 97.7
[2020-04-30 05:02] VITALS: BP 119/71; PULSE 99; TEMP 97.6
[2020-04-30 07:37] VITALS: BP 129/80; PULSE 98; TEMP 98
[2020-04-30 07:44] LABS: MEAN CELL VOLUME 103 fl (80.0-100.0); MEAN CORPUSCULAR HGB CONC 31 g/dl (33.0-37.0); MEAN PLATELET VOLUME 9.8 fl (7.4-10.4); PLATELET COUNT 444 K/mm3 (130-400); RED BLOOD COUNT 3.13 M/mm3 (4.10-5.30); REDCELL DISTRIBUTION WIDTH-CV 18.3 % (11.5-14.5)
[2020-04-30 07:50] LABS: HEMATOCRIT 32.2 % (37.0-47.0); HEMOGLOBIN 9.9 g/dl (12.5-16.0); MEAN CORPUSCULAR HEMOGLOBIN 32 pg (27.0-31.0)
[2020-04-30 07:52] LABS: CALCIUM 8.2 mg/dL (8.4-10.2); CREATININE, serum 1.27 (0.52-1.25); POTASSIUM 4.2 mmol/L (3.4-5.0)
--- NOTE | 2020-04-30 08:30 | NUR ---
Patient in bed resting. Alert and oriented x 3. Assessment complete. Denies pain at this time. Fluids infusing per orders. Denies further needs at this time.
[2020-04-30 08:48] LABS: BAND 1 % (0-10); EOSINOPHIL 1 % (0-4); LYMPHOCYTE 46 % (20.0-51.0); NEUTROPHILS 40 % (42.0-75.2); PLATELET ESTIMATE INCREASED (NORMAL); TARGET CELLS 1+
[2020-04-30 08:49] LABS: ANISOCYTOSIS 1+
[2020-04-30 11:50] VITALS: BP 110/55; PULSE 105; TEMP 98.5
[2020-04-30 16:10] VITALS: BP 123/76; PULSE 110; TEMP 97.3
--- NOTE | 2020-04-30 16:29 | NUR ---
Prop Setter received an email from [facility] who advised they are declining referral.
--- NOTE | 2020-04-30 19:32 | NUR ---
Patient has done well thoughout the day. Has been up to restroom with x 1 assist multiple times a day with walker. Denies pain at this time. Denies further needs at this time. Will report off to warehouse supervisor 3rd shift.
[2020-04-30 20:28] VITALS: BP 125/79; PULSE 105; TEMP 98.5
--- NOTE | 2020-04-30 20:30 | NUR ---
PT RESTING IN BED. IN GOOD SPIRITS. MOVES SELF AROUND IN BED FOR COMFORT. HAS FIBROMYALGIA- WANTS PAIN MED AT HS. SEE MAR. NO TELEMETRY FOUND. MULTIPLE GENERALIZED BRUISES ON BODY. PT REPORTS FROM PREVIOUS FALLS. MOD 1 ASSISTTO BR WITH WALKER AND GAIT BELT. HURRIED GAIT. ENC SAFETY. WEARS VAG PAD FOR STRESS INCONT. BACK TO BED. PLACED SCD'S BILAT. CALL LIGHT IN REACH. BED ALARM SET.
--- NOTE | 2020-04-30 22:46 | NUR ---
NOTIFIED SINAI HUIZAR TO CLARIFY DC TELEMETRY. TELEMETRY COMPLETED.
[2020-05-01 00:22] VITALS: BP 107/60; PULSE 96; TEMP 98.1
[2020-05-01 03:51] VITALS: BP 121/57; PULSE 94; TEMP 97.9
[2020-05-01 07:24] VITALS: BP 112/61; PULSE 98; TEMP 98.6
[2020-05-01 07:53] LABS: HEMOGLOBIN 10.2 g/dl (12.5-16.0); MEAN CELL VOLUME 102 fl (80.0-100.0); MEAN CORPUSCULAR HEMOGLOBIN 31 pg (27.0-31.0); MEAN CORPUSCULAR HGB CONC 31 g/dl (33.0-37.0); MEAN PLATELET VOLUME 9.4 fl (7.4-10.4); PLATELET COUNT 471 K/mm3 (130-400); RED BLOOD COUNT 3.27 M/mm3 (4.10-5.30); REDCELL DISTRIBUTION WIDTH-CV 18.3 % (11.5-14.5)
[2020-05-01 07:56] LABS: HEMATOCRIT 33.2 % (37.0-47.0)
[2020-05-01 08:02] LABS: ALBUMIN 2.8 gm/dL (3.5-5.0); BILIRUBIN,TOTAL 0.2 mg/dL (0.0-1.0); CALCIUM 8.6 mg/dL (8.4-10.2); CREATININE, serum 1.22 (0.52-1.25); MAGNESIUM 2.2 mg/dL (1.6-2.3); POTASSIUM 4.3 mmol/L (3.4-5.0); TOTAL PROTEIN 5.6 gm/dL (6.4-8.2)
[2020-05-01 09:30] LABS: ANISOCYTOSIS 1+; BAND 2 % (0-10); EOSINOPHIL 1 % (0-4); LYMPHOCYTE 52 % (20.0-51.0); METAMYELOCYTE 1 % (0-0); NEUTROPHILS 36 % (42.0-75.2); PLATELET ESTIMATE NORMAL (NORMAL); TARGET CELLS 1+
--- NOTE | 2020-05-01 11:30 | NUR ---
Patient alert and oriented, answers questions appropriately. See assessment. Stand by assist for ambulation with FWW. Gait improved. No c/o at this time.
[2020-05-01 11:50] VITALS: BP 118/69; PULSE 91; TEMP 98.1
[2020-05-01 16:00] VITALS: BP 103/83; PULSE 111; TEMP 98.2
--- NOTE | 2020-05-01 17:14 | NUR ---
Jewelry Appraiser faxed additional referrals to [facility], [facility], [facility], [facility], [facility], [facility], [facility], [facility], and [facility]. [facility], [facility], [facility], and [facility] declined referral. SW awaiting response from [facility], [facility], [facility], and [facility]. SW met with patient to provide update. SW advised patient that if placement cannot be found, she would be discharged home with continued home health services. Patient is agreeable to placement, even if it's out of town. SW also provided this update to patient's mother, Lauren. APS Mirtha POLLACK has visited with patient and is assisting with finding placement.
[2020-05-01 20:13] VITALS: BP 109/84; PULSE 117; TEMP 98.4
--- NOTE | 2020-05-01 22:58 | NUR ---
PATIENT RESTING IN BED. SOME COMPLAINTS OF PAIN. NIGHT MEDICATIONS GIVEN. PATIENT AMBULATED INTO THE BATHROOM WITH GATI BELT AND WALKER. GAIT STEADY. PATIENT BACK IN BED. NO OTHER NEEDS AT THIS TIME. CALL LIGHT IN REACH.
[2020-05-02] VITALS (7 sets, daily range): BP systolic 100–137; BP diastolic 53–85; PULSE 97–104; TEMP 97.4–98.5
[2020-05-02 06:43] LABS: HEMATOCRIT 33.4 % (37.0-47.0); HEMOGLOBIN 10.3 g/dl (12.5-16.0); MEAN CELL VOLUME 103 fl (80.0-100.0); MEAN CORPUSCULAR HEMOGLOBIN 32 pg (27.0-31.0); MEAN CORPUSCULAR HGB CONC 31 g/dl (33.0-37.0); MEAN PLATELET VOLUME 9.4 fl (7.4-10.4); PLATELET COUNT 483 K/mm3 (130-400); RED BLOOD COUNT 3.25 M/mm3 (4.10-5.30); REDCELL DISTRIBUTION WIDTH-CV 18.3 % (11.5-14.5)
[2020-05-02 06:51] LABS: CALCIUM 8.8 mg/dL (8.4-10.2); CREATININE, serum 1.38 (0.52-1.25); POTASSIUM 4.2 mmol/L (3.4-5.0)
[2020-05-02 08:19] LABS: BAND 1 % (0-10); EOSINOPHIL 2 % (0-4); HYPOCHROMIA 3+; LYMPHOCYTE 35 % (20.0-51.0); NEUTROPHILS 49 % (42.0-75.2); PLATELET ESTIMATE INCREASED (NORMAL)
[2020-05-02 08:20] LABS: ANISOCYTOSIS 2+
--- NOTE | 2020-05-02 16:47 | NUR ---
[facility] declined referral as their local physicians would not follow patient. Patient has a case briefer through [facility]. SW obtained Release of Information from patient then faxed it to patient's CMAnisa. SW will continue to follow.
--- NOTE | 2020-05-02 16:48 | NUR ---
Eun at [facility] followed up and wanted information about patient's behavior history, medications, and why patient continues to fall at home.
--- NOTE | 2020-05-02 21:43 | NUR ---
PATIENT RESTING IN BED. PATIENT HAS COMPLAINTS OF A HEADACHE. PRN TYLENOL WAS GIVEN ALONG WITH HER NIGHT MEDICATIONS. PATIENT HAS NO OTHER NEEDS AT THIS TIME. CALL LIGHT IN REACH.
[2020-05-03 03:37] VITALS: BP 111/74; PULSE 98; TEMP 98.1
[2020-05-03 06:24] LABS: HEMOGLOBIN 10.5 g/dl (12.5-16.0); MEAN CELL VOLUME 100 fl (80.0-100.0); MEAN CORPUSCULAR HEMOGLOBIN 31 pg (27.0-31.0); MEAN CORPUSCULAR HGB CONC 31 g/dl (33.0-37.0); MEAN PLATELET VOLUME 9.4 fl (7.4-10.4); PLATELET COUNT 505 K/mm3 (130-400); RED BLOOD COUNT 3.35 M/mm3 (4.10-5.30); REDCELL DISTRIBUTION WIDTH-CV 18.6 % (11.5-14.5)
[2020-05-03 06:34] LABS: CALCIUM 8.7 mg/dL (8.4-10.2); CREATININE, serum 1.19 (0.52-1.25); HEMATOCRIT 33.6 % (37.0-47.0); POTASSIUM 4.3 mmol/L (3.4-5.0)
[2020-05-03 07:20] VITALS: BP 121/99; PULSE 98
[2020-05-03 07:32] LABS: EOSINOPHIL 3 % (0-4); MYELOCYTE 1 % (0-0)
[2020-05-03 07:33] LABS: ANISOCYTOSIS 2+; LYMPHOCYTE 43 % (20.0-51.0); NEUTROPHILS 41 % (42.0-75.2); PLATELET ESTIMATE INCREASED (NORMAL)
[2020-05-03 07:35] LABS: TARGET CELLS 1+
[2020-05-03 07:39] LABS: HYPOCHROMIA 2+
--- NOTE | 2020-05-03 07:45 | NUR ---
Patient in bed resting. Alert and oriented x 3. Assessment complete. States pain 8/10 to wrist and ribs. Medications given per orders. Denies needs at this time.
[2020-05-03 09:35] VITALS: BP 126/61; PULSE 103
[2020-05-03] MEDS ORDERED: PREDNISONE 5MG5 MG PO (10:02)
[2020-05-03] MEDS ORDERED: NORCO 325 MG-7.1 TAB PO (10:05)
[2020-05-03 12:10] VITALS: BP 109/56; PULSE 103; TEMP 98
--- NOTE | 2020-05-03 15:53 | NUR ---
Letty at [facility] left a message for SW advising they are going to decline referral as they cannot meet her needs. RANJEET spoke with Marj Mensah yesterday and left a message today with no acceptance. [facility] declined referral at this time. RANJEET collaborated with the Hospitalist team and advised placement could not be found and patient would need to discharge home with services from [facility]. 17 total referrals were sent with no acceptance. RANJEET collaborated with Anisa Customer Support Agent at [facility] who advised patient has Case Management and Peer Support services through [facility]. Anisa advised historically patient has declined being set up with a therapist, but will follow up with patient on this again. Anisa reports she will work with [facility]'s outside event sales specialist to work on increasing patient's hours through the PD waiver. RANJEET then contacted Ava at [facility] who advised they will schedule a visit for patient tomorrow. Patient has two hour visits on Wednesday, Wednesday, and Wednesday. RANJEET and Cheryl Refrigerating Engineer met with patient to review discharge plan. Patient states she is afraid to be home alone but is agreeable to plan of returning home with in home supports. RANJEET provided update to patient that Anisa is working on increasing her hours. RANJEET then contacted patient's mother, Lauren who will filler picker patient this evening. RANJEET updated Roseanne at [facility] on discharge plan. RANJEET followed up with patient about setting up Home Health for nursing as she has had changes to her medications. Patient is agreeable to this and is agreeable to [facility], which can accept Medicaid. RANJEET contacted Ryan at [facility] and faxed referral. Ryan advised they could likely have a RN visit tomorrow. RANJEET updated [facility] Shannon Brim Raiser on discharge plan.
[2020-05-03 16:44] VITALS: BP 139/86; PULSE 97; TEMP 98.3
--- NOTE | 2020-05-03 16:45 | NUR ---
Discharge education provided to patient. Educated on when to call providers and follow up appointments. Educated on medication changes. All questions answered. Denies further needs at this time. INT discontinued, catheter tip intact. Patient showered independently and dressed independently prior to discharge. Patient out by wheelchair with surgical staff.
[2020-05-03 16:46] VITALS: BP 130/87
--- NOTE | 2020-05-06 09:53 | NUR ---
Shop Tailor Apprentice spoke with Ryan at [facility] who advised they visited patient on Wednesday for admit. Ryan advised everything went well and patient was agreeable to their services.
== END 2020-05-03 16:45 | disposition home health service (06) ==
LOC: COL.ER 10:27 → SURG 17:38
PROVIDERS: Nurse Practitioner Primary Care; Physician Assistant; Student in an Organized Health Care Education/Training Program; ADMIT Hospitalist
DX: R53.1 Weakness (principal); R29.6 Repeated falls; D63.1 Anemia in chronic kidney disease; N18.9 Chronic kidney disease, unspecified; I95.9 Hypotension, unspecified; I10 Essential (primary) hypertension; S22.42XA Multiple fractures of ribs, left side, initial encounter for closed fracture; D72.829 Elevated white blood cell count, unspecified; F31.9 Bipolar disorder, unspecified; F41.1 Generalized anxiety disorder; N17.9 Acute kidney failure, unspecified; E66.9 Obesity, unspecified; D64.9 Anemia, unspecified; G43.909 Migraine, unspecified, not intractable, without status migrainosus; M79.7 Fibromyalgia; E11.9 Type 2 diabetes mellitus without complications; K58.1 Irritable bowel syndrome with constipation; E87.6 Hypokalemia; Z20.822 Contact with and (suspected) exposure to COVID-19; Z86.711 Personal history of pulmonary embolism; Z79.52 Long term (current) use of systemic steroids; Z87.891 Personal history of nicotine dependence; Z88.8 Allergy status to other drugs, medicaments and biological substances
CPT/HCPCS: 99231-AI; 99232-AI; 99233-AI; 99239; A9284; A9585; G0378; J1644; J2270; J3030; J7030; J7512

== ENCOUNTER → 2020-07-16 | Outpatient (CLI) | payer MEDICAID ==
[~2020-07-16] MED LIST changes: +AMPICILLIN AND1 PD3 IV; +DULCOLAX S10 MG/SUPP RC; +DUO-KAPS1 CAP PO; +FERRO-TIME325 MG PO; +FLEXERIL 1010 MG/TAB PO; +GENTLE LAXATIVE10 MG RC; +IMITREX 6M6 MG/0.5 M SQ; +IMITREX ST4 MG/0.5 M SQ; +LIDODERM 5% PATC1 EA TP; +MEDROL 4MG DOSPA4 MG PO; +METAMUCIL3.4 GM/DOS PO; +MILK OF MA400 MG/52 PO; +MIRALAX PA17 GM/Dose PO; +NORCO 325 MG-51 TAB PO; +NOVOLOG 100U100 U/M1 SQ; +ONE-A-DAY ESSE1 EACH PO; +OSCAL 500 TAB500 MG PO; +OXY IR5 MG PO; +PHILLIPS M400 MG/51 PO; +PREDNISONE 5MG5 MG PO; +PRISTIQ 50 MG T50 MG PO; +PROZAC 20MG20 MG PO; +ROCEPHIN VIA1 G/VIAL IV; +RT SPIRIVA18 MCG IH; +SENEXON-S 50-81 EACH PO; +SENNA-S 50 MG-81 TAB PO; +TYLENOL 325MG325 MG PO; +XARELTO10 MG PO
== END ==
LOC: COL.VAS 12:46
DX: R06.02 Shortness of breath (principal); Q21.0 Ventricular septal defect; I51.7 Cardiomegaly; I34.0 Nonrheumatic mitral (valve) insufficiency

== ENCOUNTER 2020-09-30 14:47 | Emergency (ER) | payer MEDICAID ==
[~2020-09-30] VITALS: Ht 157.5 cm; Wt 128.0 kg
[~2020-09-30 14:47] MED LIST changes: -AMPICILLIN AND1 PD3 IV; -DULCOLAX S10 MG/SUPP RC; -DUO-KAPS1 CAP PO; -FERRO-TIME325 MG PO; -GENTLE LAXATIVE10 MG RC; -IMITREX 6M6 MG/0.5 M SQ; -IMITREX ST4 MG/0.5 M SQ; -LIDODERM 5% PATC1 EA TP; -MEDROL 4MG DOSPA4 MG PO; -METAMUCIL3.4 GM/DOS PO; -MILK OF MA400 MG/52 PO; -MIRALAX PA17 GM/Dose PO; -NORCO 325 MG-51 TAB PO; -NOVOLOG 100U100 U/M1 SQ; -ONE-A-DAY ESSE1 EACH PO; -OSCAL 500 TAB500 MG PO; -OXY IR5 MG PO; -PHILLIPS M400 MG/51 PO; -PROZAC 20MG20 MG PO; -ROCEPHIN VIA1 G/VIAL IV; -RT SPIRIVA18 MCG IH; -SENEXON-S 50-81 EACH PO; -SENNA-S 50 MG-81 TAB PO; -TYLENOL 325MG325 MG PO; -XARELTO10 MG PO
[2020-09-30 14:49] VITALS: TEMP 98.4
[2020-09-30] MEDS ORDERED: RT SPIRIVA18 MCG IH (14:53)
[2020-09-30] MEDS ORDERED: LIDODERM 5% PATC1 EA TP (16:57)
[2020-09-30] MEDS ORDERED: MEDROL 4MG DOSPA4 MG PO (16:57)
[2020-09-30] MEDS ORDERED: NORCO 325 MG-51 TAB PO (16:57)
[2020-09-30 18:00] VITALS: BP 113/48; PULSE 108
== END 2020-09-30 18:00 | disposition home or self-care (01) ==
LOC: COL.ER 14:47
DX: S29.011A Strain of muscle and tendon of front wall of thorax, initial encounter (principal); G43.909 Migraine, unspecified, not intractable, without status migrainosus; M79.7 Fibromyalgia; F41.9 Anxiety disorder, unspecified; F31.9 Bipolar disorder, unspecified; E66.9 Obesity, unspecified; Z68.43 Body mass index [BMI] 50.0-59.9, adult; Z88.6 Allergy status to analgesic agent; Z79.899 Other long term (current) drug therapy; X50.9XXA Other and unspecified overexertion or strenuous movements or postures, initial encounter
CPT/HCPCS: J2360; J3010

== ENCOUNTER 2020-10-19 12:44 | Inpatient (IN) | payer MEDICAID ==
[~2020-10-19] VITALS: Ht 157.5 cm; Wt 140.0 kg
[~2020-10-19 12:44] MED LIST changes: +LIDODERM 5% PATC1 EA TP; +MEDROL 4MG DOSPA4 MG PO; +NORCO 325 MG-51 TAB PO; +RT SPIRIVA18 MCG IH
[2020-10-19 15:01] LABS: MEAN CELL VOLUME 97 fl (80.0-100.0); MEAN CORPUSCULAR HGB CONC 30 g/dl (33.0-37.0); MEAN PLATELET VOLUME 9.1 fl (7.4-10.4); PLATELET COUNT 537 K/mm3 (130-400); RED BLOOD COUNT 3.42 M/mm3 (4.10-5.30); REDCELL DISTRIBUTION WIDTH-CV 19.5 % (11.5-14.5)
[2020-10-19 15:02] LABS: HEMATOCRIT 33.1 % (37.0-47.0); HEMOGLOBIN 9.9 g/dl (12.5-16.0); MEAN CORPUSCULAR HEMOGLOBIN 29 pg (27.0-31.0)
[2020-10-19 15:08] LABS: ALBUMIN 3.6 gm/dL (3.5-5.0); BILIRUBIN,TOTAL 0.2 mg/dL (0.0-1.0); CALCIUM 9.5 mg/dL (8.4-10.2); CREATININE, serum 1.15 (0.52-1.25); POTASSIUM 4.2 mmol/L (3.4-5.0)
[2020-10-19 15:46] LABS: ANISOCYTOSIS 2+; BAND 2 % (0-10); BASOPHIL 1 % (0-2); EOSINOPHIL 1 % (0-4); HYPOCHROMIA 3+; LYMPHOCYTE 29 % (20.0-51.0); METAMYELOCYTE 3 % (0-0); NEUTROPHILS 48 % (42.0-75.2); PLATELET ESTIMATE INCREASED (NORMAL)
[2020-10-19 16:33] VITALS: BP 132/76; PULSE 115; TEMP 98.6
[2020-10-19] MEDS ORDERED: REMERON 15M15 MG/TA1 PO (16:59)
[2020-10-19] MEDS ORDERED: FLEXERIL 1010 MG/TAB PO (17:00)
[2020-10-19 17:25] LABS: PROTHROMBIN TIME 11.4 SECONDS (9.7-12.8)
--- NOTE | 2020-10-19 18:57 | NUR ---
Patient up from ER at approximatly 1700. Admission intake complete. Patient oriented to room. SCDS and Carlos Alberto hose to LLE. Pedal pulses intact. Contacted Dr. Baldwin for pain medication orders; Medications given per orders. Attempted to place leiva catheter x 2 without success. Edema to BLE +1. Patien states she did not fall but heard a "pop" when she was laying down on her couch. Denies further needs at this time. Will report off to night shif.t
[2020-10-19 20:00] VITALS: BP 125/84; PULSE 127; TEMP 98.1
[2020-10-19 20:21] VITALS: BP 125/84; PULSE 127; TEMP 98.2
--- NOTE | 2020-10-19 20:30 | NUR ---
Pt. laying in bed. Pt. is A&OX3, assessment complete. INT to lt. wrist patent. Cook catheter placed. 16Fr. 1 attempt made by this nurse. Pt. tolerated well. Pt. reports pain at a 10 on pain scale, giving pain meds per orders. Pt. denies further needs.
[2020-10-19 23:53] VITALS: BP 129/74; PULSE 129; TEMP 99.3
[2020-10-20] VITALS (10 sets, daily range): BP systolic 73–127; BP diastolic 46–91; PULSE 121–128; TEMP 97.7–99
[2020-10-20] MEDS ORDERED: REMERON 15M15 MG/TA1 PO (05:02)
[2020-10-20] MEDS ORDERED: PREDNISONE 5MG5 MG PO (05:03)
[2020-10-20] MEDS ORDERED: GLUCOPHAGE XR500 M1 PO (05:04)
[2020-10-20] MEDS ORDERED: PROZAC 20MG20 MG PO (05:06)
[2020-10-20] MEDS ORDERED: LOPRESSOR 225 MG/TAB PO (05:06)
[2020-10-20] MEDS ORDERED: IMITREX ST4 MG/0.5 M SQ (05:08)
[2020-10-20] MEDS ORDERED: IMITREX 6M6 MG/0.5 M SQ (05:08)
[2020-10-20] MEDS ORDERED: BUMEX2 MG PO (05:09)
[2020-10-20] MEDS ORDERED: LIDODERM 5% PATC1 EA TP (05:13)
[2020-10-20] MEDS ORDERED: PRISTIQ 50 MG T50 MG PO (05:14)
[2020-10-20] MEDS ORDERED: CHANTIX 1MG1 MG PO (05:15)
[2020-10-20 06:17] LABS: MEAN CELL VOLUME 95 fl (80.0-100.0); MEAN CORPUSCULAR HGB CONC 31 g/dl (33.0-37.0); MEAN PLATELET VOLUME 9.3 fl (7.4-10.4); PLATELET COUNT 486 K/mm3 (130-400); REDCELL DISTRIBUTION WIDTH-CV 19.5 % (11.5-14.5)
[2020-10-20 06:27] LABS: HEMATOCRIT 30.5 % (37.0-47.0); HEMOGLOBIN 9.3 g/dl (12.5-16.0); MEAN CORPUSCULAR HEMOGLOBIN 29 pg (27.0-31.0)
[2020-10-20 06:28] LABS: ALBUMIN 3.3 gm/dL (3.5-5.0); BILIRUBIN,TOTAL 0.3 mg/dL (0.0-1.0); CREATININE, serum 1.16 (0.52-1.25); POTASSIUM 4.2 mmol/L (3.4-5.0); TOTAL PROTEIN 6.6 gm/dL (6.4-8.2)
[2020-10-20 06:54] LABS: BAND 1 % (0-10); HYPOCHROMIA 1+; LYMPHOCYTE 18 % (20.0-51.0); METAMYELOCYTE 4 % (0-0); NEUTROPHILS 68 % (42.0-75.2); POIKILOCYTOSIS 1+
[2020-10-20 06:55] LABS: ANISOCYTOSIS 1+; PLATELET ESTIMATE INCREASED (NORMAL)
--- NOTE | 2020-10-20 07:40 | NUR ---
PATIENT GOING DOWN TO OR VIA BED, CONSENT ON CHART, IV FLUIDS ON GRAVITY. PATIENT OFF FLOOR.
[2020-10-20 12:25] LABS: HEMATOCRIT 29.7 % (37.0-47.0); HEMOGLOBIN 8.6 g/dl (12.5-16.0)
--- NOTE | 2020-10-20 12:45 | NUR ---
PATIENT BACK IN ROOM 325 POST OP RIGHT HIP FX. PACU REPORTED FAILED BLOCK, PATIENT WAS UNDER A LONG TIME, AND LARGE EBL. HGB CHECK IN OR AND IS DOWN TO 8.6. PATIENT IS PALE AND COOL TO TOUCH. NOTED B/P OF 73/55, HR-121, AND O2 @ 3L WITH SATS IN MID 90'S. AT BEDSIDE. PATIENT TRYING TO TALK BUT HAS VERY SLURRED SPEACH. GIVING 250CC IV FLUID BOLUS INTO LEFT WRIST VIA PUMP. PEREZ TO DD WITH SMALL AMOUNTS OF YELLOW URINE NOTED. SCD'S TO BLE. RIGHT HIP DRESSING IS VERY LONG AND NOTED SHADOWING. WILL MONITOR.
--- NOTE | 2020-10-20 13:38 | NUR ---
PATIENT STILL VERY DROWSY BUT IS MORE EASILY UNDERSTOOD WHEN SHE TALKS. FAMILY AT BEDSIDE. B/P IS 90'S OVER 50'S. HR IN THE 120'S. PATIENT IS ITCHING NOSE & UPPER EXTREMITIES A LOT. PATIENT SEEMS RESTLESS BUT MOSTLY BECAUSE OF THE ITCHING. PATIENT DID C/O NAUSEA. GAVE PRN IV ZOFRAN.
--- NOTE | 2020-10-20 13:55 | NUR ---
PATIENT SIPPING 7-UP, PER HER REQUEST, STATING IT HELPS HER AT HOME WITH NAUSEA. EMESIS BASIN AT BEDSIDE. UNABLE TO RAISE HOB TO FAR DUE TO HYPOTENSION. HOB AT 30 DEGREES. WILL MONITOR.
--- NOTE | 2020-10-20 14:40 | NUR ---
Sw met with pt, family present. The pt lives at home. The ptis independent on ALDs but uses a walker, eye glasses. The pt pcp is Raegan Vargas and she gets her medications from [facility]. The Pt does have a DPOA-HC, her parents. Fredi (ph [phone] or [phone]). No other needs stated at this time. Sw to await further recommendations and follow up as needed. D/c: Home
[2020-10-21] VITALS (10 sets, daily range): BP systolic 94–138; BP diastolic 55–99; PULSE 114–125; TEMP 98.1–99.2
--- NOTE | 2020-10-21 05:54 | NUR ---
ALTERNATED NORCO AND OXYCODONE FOR RT HIP PAIN. ICE IN USE. DRESSING APPEARS CD&I. NO N/V.
[2020-10-21 06:59] LABS: HEMATOCRIT 19.4 % (37.0-47.0); HEMOGLOBIN 5.9 g/dl (12.5-16.0)
--- NOTE | 2020-10-21 07:15 | NUR ---
LAB CALLED WITH CRITICAL HGB OF 5.9, PATIENT IS PALE AND TACHYCARDIC IN THE 120'S. PATIENT HAS HOWEVER HAD A HR IN THE 120'S SINCE ADMISSION. NOTIFIED HOSPITALIST, SEE NEW ORDERS.
--- NOTE | 2020-10-21 08:00 | NUR ---
PATIENT IS A&O. NOTED ELEVATED HR IN THE 120'S WHICH HAS BEEN HER BASELINE SINCE ADMISSION THIS HOSPITAL STAY. ALL OTHER VSS. PATIENT C/O PAIN RATED AT 6-7 ON PAIN SCALE IN RIGHT HIP. GAVE PRN NORCO, ONE TAB WITH AM MEDS. RIGHT HIP HAS A VERY LONG HIP INCISION THAT NOTED SLIGHT SHADOWING TO GAUZE & HYPAFIX DRESSING. ICE PACK INPLACE TO RLE. SCD'S TO BLE. NOTED POSITIVE PEDAL PULSES TO BLE. PEREZ TO DD WITH MOD AMOUNTS OF CLEAR YELLOW URINE NOTED. IV ABX INFUSING VIA PUMP INTO LEFT WRIST IV. NO C/O N/V. BREAKFAST TRAY ORDERED. AM MEDS GIVEN. HEAD TO TOE ASSESSMENT COMPLETE. WAITING FOR UNIT OF BLOOD TO BE READY BY LAB. WILL TRANSFUSE 1 UNIT TODAY PER ORDERS
[2020-10-21 08:19] LABS: RETIC # 0.05 M/mm3 (0.02-0.16); RETIC % 2.6 % (0.5-3.52)
--- NOTE | 2020-10-21 09:25 | NUR ---
STARTED BLOOD TRANSFUSION PER ORDERS. VSS. PATIENT TOLERATING WELL. WILL MONITOR.
--- NOTE | 2020-10-21 12:57 | NUR ---
Initial visit; Patient thanked Art Therapy Certified Supervisor for looking in on her and offering prayer and God's blessings. Art Therapy Certified Supervisor will keep Neva in her prayers.
[2020-10-21 17:28] LABS: HEMOGLOBIN 7.2 g/dl (12.5-16.0)
--- NOTE | 2020-10-21 20:00 | NUR ---
Report received, assumed care for decorative greens cutter. Assessment complete. A&Ox3. Denies nausea/shortness of breath. Rating pain 4/10 on pain scale to right hip-described as intermittent throbbing. Fresh ice pack applied. SCDs bilat. Dressing to right hip CDI-gauze/medipore tape. Cook cath with clear yellow urine. Plan of care discussed for this shift to include HS meds/pain control/repositioning/calling for questions/concerns. Verbalizes understanding/denies needs. Call light in reach. Will monitor.
--- NOTE | 2020-10-21 21:05 | NUR ---
Called requesting pain medication. Rating pain to right hip 8/10-described as constant throbbing. S[place] given per dr dubose. Will monitor.
[2020-10-22] VITALS (11 sets, daily range): BP systolic 106–134; BP diastolic 57–87; PULSE 100–122; TEMP 98.4–99.6
--- NOTE | 2020-10-22 02:50 | NUR ---
Called with c/o pain to right hip. Rating pain 8/10 on pain scale-described as constant throbbing. Oxycodone given per dr order. Fresh ice pack applied. Dressing re-enforced. Call light in reach. Will monitor.
--- NOTE | 2020-10-22 06:15 | NUR ---
Rested off and on this shift. Received PO pain meds with good results. Ice to right hip. Dressing re-enforced x1. SCDs bilat. Tolerating PO. Cook cath with clear yellow urine-adequate output. No s/s of discomfort noted at this time. Will monitor.
[2020-10-22 07:12] LABS: MEAN CELL VOLUME 99 fl (80.0-100.0); MEAN CORPUSCULAR HGB CONC 31 g/dl (33.0-37.0); MEAN PLATELET VOLUME 9.4 fl (7.4-10.4); PLATELET COUNT 404 K/mm3 (130-400); RED BLOOD COUNT 2.22 M/mm3 (4.10-5.30); REDCELL DISTRIBUTION WIDTH-CV 18.9 % (11.5-14.5)
[2020-10-22 07:13] LABS: HEMOGLOBIN 6.7 g/dl (12.5-16.0); MEAN CORPUSCULAR HEMOGLOBIN 30 pg (27.0-31.0)
[2020-10-22 07:19] LABS: CALCIUM 7.7 mg/dL (8.4-10.2); CREATININE, serum 1.11 (0.52-1.25); POTASSIUM 3.8 mmol/L (3.4-5.0)
--- NOTE | 2020-10-22 08:00 | NUR ---
PATIENT IS A&O. NOTED ELEVATED HR IN MID 100'S TO 120'S ON TELE. PATIENT HAS BEEN TACHYCARDIC SINCE ADMISSION. ALL OTHER VSS. PATIENT REPORTS CHRONIC PAIN ISSUES AND TAKES NARCOTICS AT HOME. PATIENT GIVEN PAIN MEDS THIS AM. RIGHT HIP DRESSING IS CD&I GAUZE & HYPAFIX. ICE PACK TO RIGHT HIP. RLE IS TTWB. PT/OT CONSULTED. NO C/O N/V. IV FLUIDS INFUSING VIA PUMP INTO LEFT WRIST IV. AM HGB IS 6.7, HOSPITALIST NOTIFIED, SEE ORDERS. DC'D ANA PER ORDERS. HEAD TO TOE ASSESSMENT COMPLETE. AM MEDS GIVEN. NO OTHER NEEDS AT THIS TIME. CALL LIGHT IN REACH.
--- NOTE | 2020-10-22 09:35 | NUR ---
BLOOD TRANSFUSION STARTED PER ORDERS. VSS. PATIENT TOLERATING TRANSFUSION WELL SO FAR. HOSPITALIST Liliana AT BEDSIDE.
--- NOTE | 2020-10-22 10:40 | NUR ---
PHYSICAL THERAPY AT BEDSIDE. PATIENT STRUGGLING WITH PAIN ISSUES EVEN WITH PAIN MEDS ON BOARD. PATIENT HAS A LONG HX OF CHRONIC PAIN ISSUES AND TAKES NARCOTICS AT HOME. PATIENT GRUNTS/YELLS AND MENCHACA HER BREATHE. PATIENT PLACED ON OXYGEN DURING THERAPY FOR GOOD MEASURE. PATIENT ALREADY WEARS OXYGEN AT HOME BUT ONLY AT HS. SEE THERAPY NOTES.
--- NOTE | 2020-10-22 12:45 | NUR ---
PATIENT UNABLE TO VOID SINCE PEREZ DC'D THIS AM. BLADDER SCAN SHOWED OVER 500CC OF URINE IN BLADDER. NOTIFIED. 16F PEREZ CATH PLACED WITH 3 ASSIST. PATIENT SCREAMS WHEN LEGS ARE MOVED. CATH PLACED ON FIRST ATTEMPT WITH 700CC OF CLEAR YELLOW URINE NOTED.
[2020-10-22 16:07] LABS: HEMOGLOBIN 7.7 g/dl (12.5-16.0)
--- NOTE | 2020-10-22 20:05 | NUR ---
Report received, assumed care for division officer weapons department. Assessment complete. A&Ox3. Denies nausea/shortness of breath. VS stable. SCDs/TEDs. Rating pain to right hip 8/10 on pain scale-described as throbbing-oxycodone given per dr order. Dressing to right hip drainage outline-has been re-emullzau-dbzla gauze/medipore tape. Fresh ice pack applied. Plan of care discussed for this shift to include HS meds/pain control/calling for questions/concerns. Verbalizes understanding/denies needs. Call light in reach. Will monitor.
--- NOTE | 2020-10-22 20:31 | NUR ---
DISCUSSED WITH PT ABOUT DR ORDERING A CPAP TO WEAR AT NIGHT. PT DECLINES SHE WEARS 4 LPM 02 AT NIGHT AND DOES NOT WEAR OR NEED A CPAP ANYMORE. PT IS IN NO RESPIRATORY DISTRESS AT THIS TIME.
--- NOTE | 2020-10-23 00:14 | NUR ---
Called with c/o pain to right hip. Rating pain 8/10 on pain scale-described as constant throbbing. Oxycodone given per dr dubose. After much convincing allowed this nurse to reposition in bed. Yelled out and wouldnt allow for us to put to side but did allow for a boost in bed. Call light in reach. Will monitor.
[2020-10-23 03:38] VITALS: BP 113/81; PULSE 115; TEMP 98.5
--- NOTE | 2020-10-23 03:41 | NUR ---
C/O pain to right knee. Rating pain 8/10 on pain scale-described as constant throbbing. [place] given per dr dubose.
[2020-10-23 07:05] LABS: MEAN CORPUSCULAR HGB CONC 31 g/dl (33.0-37.0); MEAN PLATELET VOLUME 9.3 fl (7.4-10.4); PLATELET COUNT 398 K/mm3 (130-400); RED BLOOD COUNT 2.56 M/mm3 (4.10-5.30); REDCELL DISTRIBUTION WIDTH-CV 20.1 % (11.5-14.5)
[2020-10-23 07:06] LABS: HEMATOCRIT 24.1 % (37.0-47.0); HEMOGLOBIN 7.4 g/dl (12.5-16.0); MEAN CELL VOLUME 94 fl (80.0-100.0); MEAN CORPUSCULAR HEMOGLOBIN 29 pg (27.0-31.0)
[2020-10-23 07:17] LABS: CALCIUM 8.3 mg/dL (8.4-10.2); CREATININE, serum 1.02 (0.52-1.25); POTASSIUM 3.5 mmol/L (3.4-5.0)
[2020-10-23 07:25] VITALS: BP 103/56; PULSE 113; TEMP 98.5
[2020-10-23 07:51] LABS: BAND 9 % (0-10); EOSINOPHIL 4 % (0-4); LYMPHOCYTE 15 % (20.0-51.0); METAMYELOCYTE 3 % (0-0); NEUTROPHILS 60 % (42.0-75.2); NUCLEATED RED BLOOD CELL 5 (0-6)
[2020-10-23 07:52] LABS: ANISOCYTOSIS 2+; PLATELET ESTIMATE NORMAL (NORMAL)
--- NOTE | 2020-10-23 08:00 | NUR ---
PATIENT IS ALERT AND ORIENTED. VITAL SIGNS STABLE BUT HAS ELEVATED HR IN THE 115-120'S. HAS BEEN ELEVATED THROUGHOUT HOSPITAL STAY. PATIENT USING 2L OXYGEN AT NIGHT AND WHEN COMPLETING PHYSICAL ACTIVITY. CURRENTLY ON ROOM AIR WITH SATS IN UPPER 90'S. PATIENT TOLD SHE MUST TOLERATE PHYSICAL THERAPY WELL TO TRANSFER TO [facility]. GOOD PULSES BILATERALLY. DRESSING TO RIGHT HIP IS CLEAN, DRY, AND IN TACT. PATIENT HAS IV TO LEFT WRIST INT. PATIENT HAS PEREZ CATHETER. PAIN BEING TREATED WITH MEDS AND BEING REASSED. HEAD TO TOE ASSESSMENT IN REACH. CALL LIGHT WITHIN REACH.
[2020-10-23 09:12] LABS: COLLECTION METHOD CATHETER
[2020-10-23 09:21] LABS: PH 7 (5-8); SQUAMOUS EPITHELIAL None Seen /hpf; URINE APPEARANCE Clear; URINE BACTERIA None Seen /hpf; URINE BILIRUBIN Negative (NEGATIVE); URINE BLOOD Negative (NEGATIVE); URINE COLOR Straw; URINE GLUCOSE Negative (NEGATIVE); URINE KETONE Negative (NEGATIVE); URINE LEUKOCYTE ESTERASE Trace (NEGATIVE); URINE NITRATE Negative (NEGATIVE); URINE PROTEIN(semi-quant) Negative (NEGATIVE); URINE RBC 0-2 /hpf; URINE UROBILINOGEN Negative (NEGATIVE)
[2020-10-23 11:16] VITALS: BP 104/74; PULSE 107; TEMP 97.9
--- NOTE | 2020-10-23 14:15 | NUR ---
AT BESIDE. RIGHT HIP DRESSING CHAGED BY SURGEON. PHYSICIAN, NURSING & PATIENT DISUSSED THERAPY/DISCHARGE OPTIONS. PATIENT AGREES SHE COULD TOLERATE 3 HOURS OF THERAPY. PATIENT COULD HARDLY TOLERATE ROLLING IN BED TO DO THE DRESSING CHANGE. PATIENT SCREAMED AND USED LOTS OF PROFANITY DURING ANY ROLLIONG/ACTIVITY.
[2020-10-23 15:59] VITALS: BP 92/77; PULSE 125; TEMP 99.3
--- NOTE | 2020-10-23 20:30 | NUR ---
Pt. laying in bed. Pt. is A&OX3, assessment complete. INT to lt. wrist patent. Dressing to rt. hip saturated, Dressing changed, xeroform applied then 4x4's, abd pad and paper tape. Pt. tolerated well. Pt. reports pain to rt. hip at a 7 on pain scale, gave pain meds per orders. Pt. denies further needs, call light within reach.
[2020-10-23 20:58] VITALS: BP 100/47; PULSE 126; TEMP 100.5
[2020-10-23 23:56] VITALS: BP 114/68; PULSE 123; TEMP 98.5
[2020-10-24 04:52] VITALS: BP 117/67; PULSE 112; TEMP 98.9
[2020-10-24 06:45] LABS: HEMATOCRIT 25.3 % (37.0-47.0); HEMOGLOBIN 7.9 g/dl (12.5-16.0)
[2020-10-24 07:32] VITALS: BP 110/54; PULSE 107; TEMP 98.3
[2020-10-24 08:30] LABS: MEAN CELL VOLUME 94 fl (80.0-100.0); MEAN CORPUSCULAR HEMOGLOBIN 29 pg (27.0-31.0); MEAN CORPUSCULAR HGB CONC 31 g/dl (33.0-37.0); MEAN PLATELET VOLUME 9.2 fl (7.4-10.4); PLATELET COUNT 468 K/mm3 (130-400); RED BLOOD COUNT 2.71 M/mm3 (4.10-5.30); REDCELL DISTRIBUTION WIDTH-CV 19.8 % (11.5-14.5)
[2020-10-24 08:39] LABS: CALCIUM 8.9 mg/dL (8.4-10.2); CREATININE, serum 1.21 (0.52-1.25); MAGNESIUM 2.1 mg/dL (1.6-2.3); POTASSIUM 3.9 mmol/L (3.4-5.0)
--- NOTE | 2020-10-24 11:11 | NUR ---
SW informed that physician has recommended patient be refered for skilled care. However, patient limitied insurance of Medicaid. Referrals sent for review to the following facilities for review: [facility], [facility], [facility]. SW will continue to follow.
[2020-10-24 11:23] VITALS: BP 107/60; PULSE 103; TEMP 98
--- NOTE | 2020-10-24 15:50 | NUR ---
Cook catheter discontinued per orders, catheter tip intact. Pericare provided, Denies furhter needs at this time.
[2020-10-24 15:52] VITALS: BP 101/59; PULSE 102; TEMP 98.5
[2020-10-24 15:56] LABS: COLLECTION METHOD CLEAN CATCH
[2020-10-24 16:10] LABS: MUCOUS Present /lpf; PH 6 (5-8); SQUAMOUS EPITHELIAL None Seen /hpf; URINE APPEARANCE Hazy; URINE BACTERIA None Seen /hpf; URINE BILIRUBIN Negative (NEGATIVE); URINE BLOOD Negative (NEGATIVE); URINE COLOR Yellow; URINE GLUCOSE Negative (NEGATIVE); URINE KETONE Negative (NEGATIVE); URINE LEUKOCYTE ESTERASE 3+ (NEGATIVE); URINE NITRATE Positive (NEGATIVE); URINE PROTEIN(semi-quant) 1+ (NEGATIVE); URINE UROBILINOGEN Negative (NEGATIVE)
--- NOTE | 2020-10-24 19:13 | NUR ---
RECEIVED CHANGE OF SHIFT REPORT FROM DAY SHIFT NURSE.
[2020-10-24 19:16] VITALS: BP 112/64; PULSE 115; TEMP 97.9
--- NOTE | 2020-10-24 19:32 | NUR ---
Patient doing well throughout the day, has not voided since leiva removal. Up to BSC x2 assist. Dressing to right hip x 2 changed this afternoon due to serous drainage. Requests pain medication for right hip pain given throughout the day. INT to left wrist without complications. Denies needs at this time. Will report off to weight shifter.
[2020-10-24 23:51] VITALS: BP 111/67; PULSE 89; TEMP 97.8
[2020-10-25 01:45] LABS: COLLECTION METHOD CLEAN CATCH
--- NOTE | 2020-10-25 01:47 | NUR ---
INFORMED ONCALL HOSP PROVIDER, LAWANDA USER EXPERIENCE MANAGER OF PATIENT UNABLE TO VOID, BLADDER SCAN OF 668. ORDER PUT IN BY PROVIDER. UA SENT PER ORDER. PATIENT TOLERATED PEREZ CATH INSERTION, REPORTING THAT BLADDER DISCOMFORT WAS BETTER.
[2020-10-25 01:55] LABS: MUCOUS Present /lpf; PH 7 (5-8); SQUAMOUS EPITHELIAL None Seen /hpf; URINE APPEARANCE Hazy; URINE BACTERIA None Seen /hpf; URINE BILIRUBIN Negative (NEGATIVE); URINE BLOOD 1+ (NEGATIVE); URINE COLOR Yellow; URINE GLUCOSE Negative (NEGATIVE); URINE KETONE Negative (NEGATIVE); URINE LEUKOCYTE ESTERASE Trace (NEGATIVE); URINE NITRATE Negative (NEGATIVE); URINE PROTEIN(semi-quant) Negative (NEGATIVE); URINE UROBILINOGEN Negative (NEGATIVE)
[2020-10-25 04:11] VITALS: BP 136/80; PULSE 109; TEMP 98.4
--- NOTE | 2020-10-25 06:54 | NUR ---
CHANGE OF SHIFT REPORT GIVEN TO DAY SHIFT NURSE, DESEAN GOMEZ.
[2020-10-25 07:16] LABS: MEAN CELL VOLUME 97 fl (80.0-100.0); MEAN CORPUSCULAR HGB CONC 30 g/dl (33.0-37.0); MEAN PLATELET VOLUME 9.4 fl (7.4-10.4); PLATELET COUNT 527 K/mm3 (130-400); REDCELL DISTRIBUTION WIDTH-CV 19.5 % (11.5-14.5)
[2020-10-25 07:19] LABS: HEMATOCRIT 27.1 % (37.0-47.0); HEMOGLOBIN 8.1 g/dl (12.5-16.0); MEAN CORPUSCULAR HEMOGLOBIN 29 pg (27.0-31.0)
[2020-10-25 07:24] LABS: CALCIUM 8.7 mg/dL (8.4-10.2); CREATININE, serum 1.16 (0.52-1.25); POTASSIUM 3.5 mmol/L (3.4-5.0)
[2020-10-25 07:57] LABS: ANISOCYTOSIS 2+; BAND 1 % (0-10); BASOPHIL 1 % (0-2); EOSINOPHIL 4 % (0-4); LYMPHOCYTE 24 % (20.0-51.0); METAMYELOCYTE 1 % (0-0); NEUTROPHILS 59 % (42.0-75.2); NUCLEATED RED BLOOD CELL 1 (0-6); PLATELET ESTIMATE INCREASED (NORMAL)
[2020-10-25 07:58] LABS: HYPOCHROMIA 3+
[2020-10-25 08:08] VITALS: BP 107/57; PULSE 113; TEMP 98.9
--- NOTE | 2020-10-25 08:50 | NUR ---
Patient in bed resting. Alert and oriented x 3. Assessment complete. Dressing to right hip with serous drainage present. Patient states pain to RLE 8/10 medications given per orders. Denies further needs at this time.
--- NOTE | 2020-10-25 10:27 | NUR ---
SW informed that patient has been accepted to [facility]. Patient notified of information. SW informed physician, and nurse. SW also notified house nurse due to [facility] staff requesting EMS transportation. RANJEET will continue to follow to provide facility with DC orders when entered as well as setting up EMS transport.
[2020-10-25] MEDS ORDERED: ROCEPHIN VIA1 G/VIAL IV (10:44)
[2020-10-25] MEDS ORDERED: VITAMIN C500 MG PO (10:45)
[2020-10-25] MEDS ORDERED: DUO-KAPS1 CAP PO (10:45)
[2020-10-25] MEDS ORDERED: METAMUCIL3.4 GM/DOS PO (10:46)
[2020-10-25] MEDS ORDERED: MIRALAX PA17 GM/Dose PO (10:46)
[2020-10-25] MEDS ORDERED: SENEXON-S 50-81 EACH PO (10:46)
[2020-10-25] MEDS ORDERED: DULCOLAX S10 MG/SUPP RC (10:46)
[2020-10-25] MEDS ORDERED: PHILLIPS M400 MG/51 PO (10:46)
[2020-10-25] MEDS ORDERED: TYLENOL 325MG325 MG PO (10:47)
[2020-10-25] MEDS ORDERED: OSCAL 500 TAB500 MG PO (10:47)
[2020-10-25] MEDS ORDERED: NORCO 325 MG-7.1 TAB PO (10:49)
[2020-10-25] MEDS ORDERED: OXY IR5 MG PO (10:49)
[2020-10-25] MEDS ORDERED: XARELTO10 MG PO (10:49)
[2020-10-25] MEDS ORDERED: FERRO-TIME325 MG PO (10:50)
[2020-10-25] MEDS ORDERED: NOVOLOG 100U100 U/M1 SQ (10:52)
[2020-10-25 11:58] VITALS: BP 108/71; PULSE 102; TEMP 97.7
--- NOTE | 2020-10-25 12:34 | NUR ---
Follow-up visit; Patient thanked Production Tool Engineer for offering prayer again for her before she is transferred for physical therapy. Production Tool Engineer wished Neva God's blessings and a successful recovery.
[2020-10-25 13:41] VITALS: BP 108/71; PULSE 102; TEMP 97.7
--- NOTE | 2020-10-25 14:27 | NUR ---
Patient to [facility] swing bed by EMS
--- NOTE | 2020-10-25 14:49 | NUR ---
Report to [facility].
== END 2020-10-25 14:52 | disposition swing bed (61) | DRG 481 ==
LOC: COL.ER 12:44 → SURG 15:54
PROVIDERS: Internal Medicine; Nurse Anesthetist, Certified Registered; Nurse Practitioner Family; Nurse Practitioner Primary Care; Orthopaedic Surgery; Physician Assistant
PROC: 0QS806Z Reposition Right Femoral Shaft with Intramedullary Internal Fixation Device, Open Approach (ICD-10-PCS; principal; 2020-10-20 08:00)
DX: S72.001A Fracture of unspecified part of neck of right femur, initial encounter for closed fracture (principal); N39.0 Urinary tract infection, site not specified; E24.9 Cushing's syndrome, unspecified; W19.XXXA Unspecified fall, initial encounter; G47.33 Obstructive sleep apnea (adult) (pediatric); I10 Essential (primary) hypertension; F31.9 Bipolar disorder, unspecified; F41.1 Generalized anxiety disorder; E11.9 Type 2 diabetes mellitus without complications; G43.909 Migraine, unspecified, not intractable, without status migrainosus; E66.01 Morbid (severe) obesity due to excess calories; I95.81 Postprocedural hypotension; D64.9 Anemia, unspecified; K59.00 Constipation, unspecified; R09.02 Hypoxemia; R50.9 Fever, unspecified; M79.7 Fibromyalgia; R33.9 Retention of urine, unspecified; Z79.51 Long term (current) use of inhaled steroids
CPT/HCPCS: 99222-AI; 99232-AI; 99239; A4314; C1713; J0330; J0690; J0696; J1170; J1644; J2060; J2250; J2270; J2370; J2405; J2550; J2704; J2795; P9016; Q9967

== ENCOUNTER → 2020-10-30 | Outpatient (REF) ==
[~2020-10-30] MED LIST changes: +AMPICILLIN AND1 PD3 IV; +DULCOLAX S10 MG/SUPP RC; +DUO-KAPS1 CAP PO; +FERRO-TIME325 MG PO; +GENTLE LAXATIVE10 MG RC; +IMITREX 6M6 MG/0.5 M SQ; +IMITREX ST4 MG/0.5 M SQ; +METAMUCIL3.4 GM/DOS PO; +MILK OF MA400 MG/52 PO; +MIRALAX PA17 GM/Dose PO; +NOVOLOG 100U100 U/M1 SQ; +ONE-A-DAY ESSE1 EACH PO; +OSCAL 500 TAB500 MG PO; +OXY IR5 MG PO; +PHILLIPS M400 MG/51 PO; +PROZAC 20MG20 MG PO; +ROCEPHIN VIA1 G/VIAL IV; +SENEXON-S 50-81 EACH PO; +SENNA-S 50 MG-81 TAB PO; +TYLENOL 325MG325 MG PO; +XARELTO10 MG PO
== END ==
LOC: ZLAB.WCH 19:46
DX: Z01.89 Encounter for other specified special examinations (principal)

== ENCOUNTER 2020-10-31 18:47 | Inpatient (IN) | payer MEDICAID ==
[~2020-10-31] VITALS: Ht 157.5 cm; Wt 141.5 kg
--- NOTE | 2020-10-31 18:45 | NUR ---
Arrived to unit via stretcher with EMT, awake, alert, oriented x 4, updated on plan of care and arrival, verbalized understanding.
[~2020-10-31 18:47] MED LIST changes: -AMPICILLIN AND1 PD3 IV; -GENTLE LAXATIVE10 MG RC; -MILK OF MA400 MG/52 PO; -ONE-A-DAY ESSE1 EACH PO; -SENNA-S 50 MG-81 TAB PO
[2020-10-31 21:19] VITALS: BP 102/62; PULSE 112; TEMP 99
[2020-11-01] VITALS (12 sets, daily range): BP systolic 95–122; BP diastolic 44–94; PULSE 95–112; TEMP 97.8–99.5
[2020-11-01 01:32] LABS: MEAN CELL VOLUME 96 fl (80.0-100.0); MEAN CORPUSCULAR HGB CONC 29 g/dl (33.0-37.0); MEAN PLATELET VOLUME 8.9 fl (7.4-10.4); PLATELET COUNT 879 K/mm3 (130-400); RED BLOOD COUNT 2.52 M/mm3 (4.10-5.30); REDCELL DISTRIBUTION WIDTH-CV 18.6 % (11.5-14.5)
[2020-11-01 01:44] LABS: ALBUMIN 3.2 gm/dL (3.5-5.0); BILIRUBIN,TOTAL 0.2 mg/dL (0.0-1.0); CALCIUM 8.5 mg/dL (8.4-10.2); CREATININE, serum 1.35 (0.52-1.25); MAGNESIUM 1.8 mg/dL (1.6-2.3); PHOSPHOROUS 3.9 mg/dL (2.5-4.5); POTASSIUM 3.3 mmol/L (3.4-5.0); TOTAL PROTEIN 6.2 gm/dL (6.4-8.2)
[2020-11-01 01:48] LABS: HEMATOCRIT 24.2 % (37.0-47.0); HEMOGLOBIN 7.1 g/dl (12.5-16.0); MEAN CORPUSCULAR HEMOGLOBIN 28 pg (27.0-31.0)
[2020-11-01 01:57] LABS: C-REACTIVE PROTEIN 13.5 mg/dL (0.0-0.9)
[2020-11-01] MEDS ORDERED: FERRO-TIME325 MG PO (02:14)
[2020-11-01] MEDS ORDERED: OSCAL 500 TAB500 MG PO (02:17)
[2020-11-01] MEDS ORDERED: MIRALAX PA17 GM/Dose PO (02:19)
[2020-11-01] MEDS ORDERED: GENTLE LAXATIVE10 MG RC (02:19)
[2020-11-01] MEDS ORDERED: MILK OF MA400 MG/52 PO (02:19)
[2020-11-01] MEDS ORDERED: SENNA-S 50 MG-81 TAB PO (02:20)
[2020-11-01] MEDS ORDERED: VITAMIN C500 MG PO (02:20)
[2020-11-01] MEDS ORDERED: METAMUCIL3.4 GM/DOS PO (02:20)
[2020-11-01] MEDS ORDERED: ONE-A-DAY ESSE1 EACH PO (02:21)
[2020-11-01] MEDS ORDERED: MELATIN 3 MG-11 TAB PO (02:21)
[2020-11-01] MEDS ORDERED: RT SPIRIVA18 MCG IH (02:31)
[2020-11-01 03:01] LABS: BAND 10 % (0-10); EOSINOPHIL 1 % (0-4); LYMPHOCYTE 20 % (20.0-51.0); MYELOCYTE 1 % (0-0); NEUTROPHILS 66 % (42.0-75.2)
[2020-11-01 03:02] LABS: ANISOCYTOSIS 1+; MICROCYTOSIS 1+; PLATELET ESTIMATE NORMAL (NORMAL)
--- NOTE | 2020-11-01 06:45 | NUR ---
appears to be sleeping, bedside shift report received from PATRICIA Ledesma
--- NOTE | 2020-11-01 08:45 | NUR ---
called and needs to get up to void, assisted her up to bedside commode but was then not able to void, am hygiene completed and assisted back to bed, full assessment completed, see interventions for further info, large bulky dressing to right hip is CD&I at this time,
--- NOTE | 2020-11-01 09:37 | NUR ---
physical therapy in to work with patient, assisted out of bed and ambulated and now into chair
--- NOTE | 2020-11-01 10:00 | NUR ---
was unable to void while on bedside commode, assisted back to bed, Erika notified that she is unale to void and bladder scan reveals approx 500ml urine in bladder, leiva catheter placed, and clear yellow urine returned, tolerated procedure well
[2020-11-01 10:04] LABS: COLLECTION METHOD CLEAN CATCH
[2020-11-01 10:10] LABS: PH 7 (5-8); SQUAMOUS EPITHELIAL None Seen /hpf; URINE APPEARANCE Clear; URINE BACTERIA None Seen /hpf; URINE BILIRUBIN Negative (NEGATIVE); URINE BLOOD Negative (NEGATIVE); URINE COLOR Yellow; URINE GLUCOSE Negative (NEGATIVE); URINE KETONE Negative (NEGATIVE); URINE LEUKOCYTE ESTERASE Negative (NEGATIVE); URINE NITRATE Negative (NEGATIVE); URINE PROTEIN(semi-quant) Negative (NEGATIVE); URINE RBC None Seen /hpf; URINE UROBILINOGEN Negative (NEGATIVE)
--- NOTE | 2020-11-01 10:30 | NUR ---
medicated with flexeril 10mg po per patient's request
--- NOTE | 2020-11-01 11:17 | NUR ---
Dr Kc and care team was in to see patient
--- NOTE | 2020-11-01 12:20 | NUR ---
Surgery nurse calls and states harrisn is going to have surgery and they are ready now, IV fluids placed on straight line tubing, Shakeel RN notified of patient coming to surgery, withoutconsent and they will obtain consent in surgery, patient informed and to surgery per bed
--- NOTE | 2020-11-01 13:04 | NUR ---
Pt. in surgery, plan for pt. to come back to the surgical unit when pt. is back. PATRICIA Littlejohn gave report to this RN to care for pt. when she comes back from surgery.
--- NOTE | 2020-11-01 13:06 | NUR ---
shift report given to PATRICIA Sands
--- NOTE | 2020-11-01 14:16 | NUR ---
Patient returns from a recent placement at the [facility] for swing bed status/rehab. Worker spoke with Saeed from [facility] and they confirm that patient can return upon discharge if they have bed availability and authorization from patient's insurance prior to transfer. Return to [facility] bed: will need insurance authorization prior to transfer.
--- NOTE | 2020-11-01 14:22 | NUR ---
Vancomycin Initial Dosing Pharmacy Note Ordering provider: Yanet Kc MD Indication/duration: Soft tissue infection LABS: SCr 1.35, CrCl~63, GFR 43 Recommendation: Vancomycin 2 gm IV q12h. Pharmacy will continue to closely monitor and check a Vancomycin trough on 11/03/20 Loading dose: 2 grams Maintenance dose: 2 grams every 12 hours Trough goal: 10-15 ug/mL
--- NOTE | 2020-11-01 15:59 | NUR ---
Pt. back from surgery. Report received from PATRICIA Manzo. Pt. alert and pt.'s mother at bedside. Pt. able to make needs known. +PP and +CSM of all extremeties. Frequent vital signs in place.
--- NOTE | 2020-11-01 16:47 | NUR ---
Pt. reporting she is hungy but also reports she is nauseous. This RN encouraging the patient to slowly take in the ice chips and not to take too much if she is having nausea.
--- NOTE | 2020-11-01 17:38 | NUR ---
Pt. was reporting 8/10 pain around 1700. This RN left the room to go get pain medication for the patient. Upon assessment of the patient now, pt. is sleeping. Respiratory rate is 20 and pt. appears to be comfortable.
[2020-11-02] VITALS (8 sets, daily range): BP systolic 105–134; BP diastolic 50–79; PULSE 101–121; TEMP 98.1–98.3
[2020-11-02 07:10] LABS: MEAN CELL VOLUME 98 fl (80.0-100.0); MEAN CORPUSCULAR HGB CONC 29 g/dl (33.0-37.0); MEAN PLATELET VOLUME 8.9 fl (7.4-10.4); PLATELET COUNT 886 K/mm3 (130-400); REDCELL DISTRIBUTION WIDTH-CV 18.9 % (11.5-14.5)
[2020-11-02 07:19] LABS: HEMATOCRIT 23.5 % (37.0-47.0); HEMOGLOBIN 6.9 g/dl (12.5-16.0); MEAN CORPUSCULAR HEMOGLOBIN 29 pg (27.0-31.0)
--- NOTE | 2020-11-02 07:26 | NUR ---
PATIENT POD#1 OF ID OF RIGHT HIP. VSS. PAIN MANAGED WITH ROXYCODONE 10 MG AND NORCO. ZOFRAM 4 MG IV FOR NAUSEA, NO VOMITING. PEREZ TO GRAVITY WITH CLEAR YELLOW URINE. RIGHT HIP DRESSING INTACT WITH HEMOVAC IN PLACE DRAINAGE SEROUSANG FLUID. GETTING VANCO FOR IV ABX. WILL CONTINUE TO MONITOR.
[2020-11-02 07:27] LABS: CALCIUM 8.4 mg/dL (8.4-10.2); CREATININE, serum 1.06 (0.52-1.25); MAGNESIUM 2.1 mg/dL (1.6-2.3); POTASSIUM 3.4 mmol/L (3.4-5.0)
[2020-11-02 07:58] LABS: BAND 1 % (0-10); EOSINOPHIL 1 % (0-4); LYMPHOCYTE 23 % (20.0-51.0); NEUTROPHILS 66 % (42.0-75.2)
[2020-11-02 07:59] LABS: ANISOCYTOSIS 2+; HYPOCHROMIA 3+; PLATELET ESTIMATE INCREASED (NORMAL)
--- NOTE | 2020-11-02 15:19 | NUR ---
STARTED BLOOD,STATYED WITH PT FOR INITIAL 15 MIN. REVIEWED TRANSFUSION REACTION WITH PT. PT DENIES ANY S/S.
--- NOTE | 2020-11-02 18:06 | NUR ---
PT HAD EXTRA LARGE SOFT BM THIS SHIFT.
--- NOTE | 2020-11-02 19:06 | NUR ---
RECEIVED CHANGE OF SHIFT REPORT FROM DAY SHIFT NURSE. PATIENT SLEEPING, DOES NOT WAKE WHEN STAFF ENTERED ROOM.
[2020-11-03] VITALS (7 sets, daily range): BP systolic 84–114; BP diastolic 41–73; PULSE 98–112; TEMP 97.6–98.2
--- NOTE | 2020-11-03 03:21 | NUR ---
PATIENT SLEEPING, DOES NOT WAKE WHEN ROOM ENTERED BY STAFF. IV SITE RESTARTED TO LFA, PREVIOUS X2 INT SITE D/C'D D/T SOME REDNESS AND PAIN TO R HAND INT SITE. PEREZ IN PLACE. PATIENT REPOSITIONS SELF IN BED WITH SLIGHT MOVEMENTS BUT STILL NEEDS ASSISTANCE WITH REPOSITIONING RLE DUE TO WEAKNESS FROM SURGERIES TO RIGHT HIP AREA. DENIES CHEST PAIN/SOA/NAUSEA THROUGHOUT SHIFT AT THIS TIME.
[2020-11-03 07:05] LABS: MEAN CELL VOLUME 97 fl (80.0-100.0); MEAN CORPUSCULAR HGB CONC 29 g/dl (33.0-37.0); MEAN PLATELET VOLUME 8.9 fl (7.4-10.4); PLATELET COUNT 862 K/mm3 (130-400); RED BLOOD COUNT 2.63 M/mm3 (4.10-5.30); REDCELL DISTRIBUTION WIDTH-CV 18.4 % (11.5-14.5)
--- NOTE | 2020-11-03 07:10 | NUR ---
CHANGE OF SHIFT REPORT GIVEN TO DAY SHIFT NURSE, CARMEN GOMEZ.
[2020-11-03 07:13] LABS: HEMATOCRIT 25.5 % (37.0-47.0); HEMOGLOBIN 7.5 g/dl (12.5-16.0); MEAN CORPUSCULAR HEMOGLOBIN 29 pg (27.0-31.0)
[2020-11-03 07:18] LABS: CALCIUM 8.6 mg/dL (8.4-10.2); CREATININE, serum 0.92 (0.52-1.25); POTASSIUM 3.9 mmol/L (3.4-5.0)
[2020-11-03 09:17] LABS: EOSINOPHIL 1 % (0-4); LYMPHOCYTE 18 % (20.0-51.0); NEUTROPHILS 71 % (42.0-75.2); NUCLEATED RED BLOOD CELL 1 (0-6)
[2020-11-03 09:18] LABS: ANISOCYTOSIS 2+; HYPOCHROMIA 3+; PLATELET ESTIMATE INCREASED (NORMAL)
--- NOTE | 2020-11-03 11:04 | NUR ---
PT RESTING IN BED. JONY LANDAVERDE IN TO DO DRAIN REMOVAL AND DRESSING CHANGE. SPOKE WITH APARNA BERNARD AND WILL KEEP CATHETER R/T PT INABLITY TO MAINTAIN 50% WEIGHT BEARING LIMITATION. WILL CONTINUE WITH THERAPY. PT REQUIRING FREQUENT PAIN MEDICATIONS FOR PAIN CONTROLL.
--- NOTE | 2020-11-03 16:37 | NUR ---
VANCOMYCIN DOSE HELD WITH CRITICAL VALUE OF 31.6.
--- NOTE | 2020-11-03 17:04 | NUR ---
NOTIFIED APARNA BERNARD OF CRITICAL VANC TROUGH.
--- NOTE | 2020-11-03 18:58 | NUR ---
RECEIVED CHANGE OF SHIFT REPORT FROM DAY SHIFT NURSE. PATIENT WANTING PAIN MEDS WHEN NEXT AVAILABLE.
--- NOTE | 2020-11-03 19:00 | NUR ---
REPORTS HAD BM TODAY.
--- NOTE | 2020-11-04 00:32 | NUR ---
CALLED ONCALL HOSP PROVIDER, LAWANDA ALFORD, TO CONFIRM CONTINUE ADMIN TO NEXT SCHEDULED DOSE OF VANCO, DUE AT 0300. PROVIDER RECOMMENDED TO CONTACT PHARMACY REGARDING 0300 VANCO DOSE, CALLED/SPOKE WITH FRANCOIS, FROM PHARMACY WHO WILL CONTACT THIS NURSE TO CONFIRM IF VANCO CAN STILL BE ADMIN SCHEDULED.
--- NOTE | 2020-11-04 01:04 | NUR ---
PHARMACY CALLED, INFORMED NEW DOSING FOR VANCO ENTERED INTO [employer] FOR NEXT SCHEDULED DOSING AT 0300.
[2020-11-04 04:00] VITALS: BP 85/45; PULSE 92; TEMP 98.1
--- NOTE | 2020-11-04 07:00 | NUR ---
Report received from PATRICIA Flowers. Pt in bed resting. Denies needs, will continue to monitor.
--- NOTE | 2020-11-04 07:08 | NUR ---
CHANGE OF SHIFT REPORT GIVEN TO DAY SHIFT NURSE, JIM GOMEZ.
[2020-11-04 07:34] LABS: MEAN CELL VOLUME 98 fl (80.0-100.0); MEAN CORPUSCULAR HGB CONC 29 g/dl (33.0-37.0); MEAN PLATELET VOLUME 8.9 fl (7.4-10.4); PLATELET COUNT 844 K/mm3 (130-400); RED BLOOD COUNT 2.62 M/mm3 (4.10-5.30); REDCELL DISTRIBUTION WIDTH-CV 18.6 % (11.5-14.5)
[2020-11-04 07:35] LABS: HEMATOCRIT 25.7 % (37.0-47.0); HEMOGLOBIN 7.5 g/dl (12.5-16.0); MEAN CORPUSCULAR HEMOGLOBIN 29 pg (27.0-31.0)
[2020-11-04 07:46] LABS: CALCIUM 8.8 mg/dL (8.4-10.2); CREATININE, serum 1.05 (0.52-1.25); POTASSIUM 4.5 mmol/L (3.4-5.0)
[2020-11-04 08:17] VITALS: BP 110/62; PULSE 102; TEMP 97.6
[2020-11-04 08:58] LABS: BASOPHIL 2 % (0-2); EOSINOPHIL 7 % (0-4); LYMPHOCYTE 25 % (20.0-51.0); NEUTROPHILS 61 % (42.0-75.2)
[2020-11-04 08:59] LABS: ANISOCYTOSIS 3+; HYPOCHROMIA 4+; PLATELET ESTIMATE INCREASED (NORMAL)
--- NOTE | 2020-11-04 10:39 | NUR ---
Called Haylee Nathan regarding dressing on R hip. Per Ortho dressing needs to remain completely dry and pt could shower but only if this was able to executed, updated OT of this and they will try and have a sponge bath. Pt currently getting PICC placed with Valeria. Denies needs, PRN pain meds given. Will continue to monitor.
--- NOTE | 2020-11-04 10:48 | NUR ---
Assessment charted. Pt doing well, INT to LFA. Resting quietly in bed watching TV and playing on phone. R hip bulky dressing CDI. Will continue to monitor.
[2020-11-04 11:30] VITALS: BP 111/61; PULSE 114; TEMP 98.3
--- NOTE | 2020-11-04 15:31 | NUR ---
sheetmetal worker spoke with Fara and advised that physicians wish to transfer patient to swing bed today. Awaiting response by Lou.
[2020-11-04 16:46] VITALS: BP 108/63; PULSE 107; TEMP 98.4
--- NOTE | 2020-11-04 18:56 | NUR ---
RECEIVED CHANGE OF SHIFT REPORT FROM DAY SHIFT NURSE. PATIENT WITHOUT C/O OR NEEDS AT TIME OF REPORT.
--- NOTE | 2020-11-04 19:22 | NUR ---
Pt has done well over shift. PRN pain and nausea meds provided. Pt resting in bed, up to commode for large BM with assistance of 2 this evening, pt does appeart to bear more weight on RLE than should be. Report given to nightift nurse who will resume care.
[2020-11-04 20:17] VITALS: BP 104/56; PULSE 98; TEMP 98
[2020-11-05] VITALS (8 sets, daily range): BP systolic 97–109; BP diastolic 53–67; PULSE 92–103; TEMP 97.4–98.6
--- NOTE | 2020-11-05 | NUR ---
PATIENT SLEEPING, DOES NOT WAKE WHEN DOOR TO ROOM IS OPENED BY STAFF. BREATHING NONLABORED AND EVEN. PEREZ IN PLACE. WEARS OXYGEN DURING NIGHT.
[2020-11-05 07:11] LABS: MEAN CELL VOLUME 97 fl (80.0-100.0); MEAN CORPUSCULAR HGB CONC 29 g/dl (33.0-37.0); MEAN PLATELET VOLUME 8.5 fl (7.4-10.4); PLATELET COUNT 822 K/mm3 (130-400); RED BLOOD COUNT 2.78 M/mm3 (4.10-5.30); REDCELL DISTRIBUTION WIDTH-CV 18.1 % (11.5-14.5)
--- NOTE | 2020-11-05 07:12 | NUR ---
CHANGE OF SHIFT REPORT GIVEN TO DAY SHIFT NURSE, CARMEN GOMEZ.
[2020-11-05 07:16] LABS: HEMATOCRIT 26.9 % (37.0-47.0); HEMOGLOBIN 7.9 g/dl (12.5-16.0); MEAN CORPUSCULAR HEMOGLOBIN 28 pg (27.0-31.0)
[2020-11-05 07:23] LABS: CREATININE, serum 1.05 (0.52-1.25); POTASSIUM 4.4 mmol/L (3.4-5.0)
[2020-11-05 08:32] LABS: ANISOCYTOSIS 3+; BAND 1 % (0-10); BASOPHIL 2 % (0-2); EOSINOPHIL 5 % (0-4); HYPOCHROMIA 4+; LYMPHOCYTE 34 % (20.0-51.0); NEUTROPHILS 47 % (42.0-75.2); NUCLEATED RED BLOOD CELL 1 (0-6); PLATELET ESTIMATE INCREASED (NORMAL)
--- NOTE | 2020-11-05 09:45 | NUR ---
PT RESTING IN BED. AM MEDS GIVEN ORDERED. PICC LINE TO SAEED CDI WITH GOOD BLOOD RETURN. AM LABS DRAWN. PT IS A/O X4. PO PAIN NEDS FOR CHRONIC PAIN. LOOKING FOR PLACEMENT FOR FURTHER THERAPY.
--- NOTE | 2020-11-05 18:38 | NUR ---
RECEIVED CHANGE OF SHIFT REPORT FROM DAY SHIFT NURSE.
--- NOTE | 2020-11-06 01:44 | NUR ---
PATIENT SLEEPING, DOES NOT WAKE WHEN DOOR TO ROOM IS OPENED BY STAFF ON HOURLY NURSING ROUNDS. BED ALARM ON WITH CALL LIGHT WITHIN REACH. OBSERVED BREATHING NONLABORED AND EVEN. OXYGEN CONTINUES PER NC AT 3-[address] TELE IN PLACE.
[2020-11-06 03:47] VITALS: BP 91/60; PULSE 94; TEMP 98
--- NOTE | 2020-11-06 06:51 | NUR ---
CHANGE OF SHIFT REPORT GIVEN TO DAY SHIFT NURSE, CARMEN GOMEZ.
[2020-11-06 07:18] VITALS: BP 112/63; PULSE 95; TEMP 98.1
[2020-11-06 08:07] LABS: MEAN CELL VOLUME 96 fl (80.0-100.0); MEAN CORPUSCULAR HGB CONC 30 g/dl (33.0-37.0); MEAN PLATELET VOLUME 9.3 fl (7.4-10.4); PLATELET COUNT 811 K/mm3 (130-400); RED BLOOD COUNT 2.82 M/mm3 (4.10-5.30); REDCELL DISTRIBUTION WIDTH-CV 18.1 % (11.5-14.5)
[2020-11-06 08:14] LABS: CALCIUM 8.7 mg/dL (8.4-10.2); CREATININE, serum 1.05 (0.52-1.25); POTASSIUM 4.5 mmol/L (3.4-5.0)
[2020-11-06 08:40] LABS: MEAN CORPUSCULAR HEMOGLOBIN 28 pg (27.0-31.0)
[2020-11-06 09:22] LABS: EOSINOPHIL 4 % (0-4); LYMPHOCYTE 25 % (20.0-51.0); METAMYELOCYTE 5 % (0-0); NEUTROPHILS 56 % (42.0-75.2); PLATELET ESTIMATE INCREASED (NORMAL)
[2020-11-06 09:23] LABS: ANISOCYTOSIS 1+
--- NOTE | 2020-11-06 09:26 | NUR ---
DR ABRAHAM IN TO CHANGE DRESSING AND ROUND ON PATIENT. EMPHASIZED 50% WEIGHT BEARING WITH PATIENT. PATIENT VERBALIZED UNDERSTANDING. PT UNABLE TO COMPLETE 50% WEIGHTBEARING AT THIS TIME. PT EATING AND DRINKING, PAIN CONTROLLED WITH CURRENT PAIN MANAGEMENT PLAN.
--- NOTE | 2020-11-06 10:00 | NUR ---
PICC intact right upper arm with dried reddish drainage on disk. sterile dressing change done. no further drainage noted.
[2020-11-06] MEDS ORDERED: AMPICILLIN AND1 PD3 IV (10:47)
[2020-11-06 12:57] VITALS: BP 109/51; PULSE 94; TEMP 98
--- NOTE | 2020-11-06 13:56 | NUR ---
[facility] is not accepting at this time. muffle worker collaborated with providers and made a referral to a higher level of care, [facility]. Providers spoke with patient about this option. Will await results of [facility]'s screening.
[2020-11-06 16:01] VITALS: BP 118/49; PULSE 97; TEMP 97.8
--- NOTE | 2020-11-06 19:24 | NUR ---
PATIENT RESTING IN BED. NO DISTRESS NOTED. PEREZ CATHER IN PLACE WITH CLEAR YELLOW URINE. ALERT AND ORIENTED X4. NO NEEDS AT THIS TIME. CALL LIGHT WITHIN REACH.
[2020-11-06 20:30] VITALS: BP 103/58; PULSE 113; TEMP 98.3
[2020-11-06 23:30] VITALS: BP 116/55; PULSE 101; TEMP 97.8
[2020-11-07 04:02] VITALS: BP 105/68; PULSE 93; TEMP 98.1
[2020-11-07 07:22] LABS: MEAN CELL VOLUME 98 fl (80.0-100.0); MEAN CORPUSCULAR HGB CONC 29 g/dl (33.0-37.0); MEAN PLATELET VOLUME 8.9 fl (7.4-10.4); PLATELET COUNT 764 K/mm3 (130-400); RED BLOOD COUNT 2.76 M/mm3 (4.10-5.30); REDCELL DISTRIBUTION WIDTH-CV 18.1 % (11.5-14.5)
[2020-11-07 07:23] LABS: HEMATOCRIT 26.9 % (37.0-47.0); HEMOGLOBIN 7.8 g/dl (12.5-16.0); MEAN CORPUSCULAR HEMOGLOBIN 28 pg (27.0-31.0)
[2020-11-07 07:34] LABS: CALCIUM 8.7 mg/dL (8.4-10.2); CREATININE, serum 1.05 (0.52-1.25); POTASSIUM 4.3 mmol/L (3.4-5.0)
[2020-11-07 08:17] VITALS: BP 102/42; PULSE 93; TEMP 98.4
[2020-11-07 09:12] LABS: ANISOCYTOSIS 2+; BAND 5 % (0-10); EOSINOPHIL 4 % (0-4); LYMPHOCYTE 22 % (20.0-51.0); METAMYELOCYTE 4 % (0-0); MYELOCYTE 1 % (0-0); NEUTROPHILS 57 % (42.0-75.2); PLATELET ESTIMATE INCREASED (NORMAL)
[2020-11-07 11:30] VITALS: BP 104/78; PULSE 87; TEMP 97.6
[2020-11-07 16:10] VITALS: BP 114/68; PULSE 96; TEMP 97.3
--- NOTE | 2020-11-07 17:37 | NUR ---
pt has had uneventful day, A&O, c/o pain to rt hip and rt fortune, pain medications administered per mar/per request. Cook draining clear yellow urine, no issues noted, cath care provided. Pt working with PT/OT throughout day, up to chair. SAEED PICC in place, both ports flush with blood return. Pt denies further needs.
[2020-11-07 20:01] VITALS: BP 126/59; PULSE 107; TEMP 97.8
[2020-11-08 01:09] VITALS: BP 103/63; PULSE 98; TEMP 98.4
[2020-11-08 04:51] VITALS: BP 102/56; PULSE 99; TEMP 98
--- NOTE | 2020-11-08 06:39 | NUR ---
PATIENT HAS NO EVENT OVERNIGHT. PAIN MANAGE WITH PAIN REGIMEN. PEREZ CATHETER WITH CLEAR YELLOW URINE. SAEED PICC INTACLT. VSS. PLAN TO D/C TODAY TO REHAB. WILL CONTINUE TO MONITOR.
[2020-11-08 07:00] LABS: MEAN CELL VOLUME 97 fl (80.0-100.0); MEAN CORPUSCULAR HGB CONC 29 g/dl (33.0-37.0); MEAN PLATELET VOLUME 8.6 fl (7.4-10.4); PLATELET COUNT 729 K/mm3 (130-400); RED BLOOD COUNT 2.74 M/mm3 (4.10-5.30)
[2020-11-08 07:06] LABS: HEMATOCRIT 26.7 % (37.0-47.0); HEMOGLOBIN 7.6 g/dl (12.5-16.0); MEAN CORPUSCULAR HEMOGLOBIN 28 pg (27.0-31.0)
[2020-11-08 07:16] LABS: POTASSIUM 4.4 mmol/L (3.4-5.0)
[2020-11-08 07:41] LABS: BAND 5 % (0-10); BASOPHIL 1 % (0-2); LYMPHOCYTE 28 % (20.0-51.0); METAMYELOCYTE 6 % (0-0); NEUTROPHILS 51 % (42.0-75.2)
[2020-11-08 07:42] LABS: PLATELET ESTIMATE INCREASED (NORMAL)
[2020-11-08 07:43] LABS: ANISOCYTOSIS 1+
[2020-11-08 08:21] VITALS: BP 100/52; PULSE 97; TEMP 97.7
--- NOTE | 2020-11-08 10:06 | NUR ---
joinery factory worker faxed clinical updates to Stuart at [facility]. Stuart states that insurance company is back logged and we will continue to await authorization to transfer.
--- NOTE | 2020-11-08 10:10 | NUR ---
Patient alert and oriented, answers questions appropriately. See assessment. Cook catheter in place, patent, draining clear yellow urine. RLE with dressing CDI, no redness or drainage noted. 50% weight bearing to RLE. Uses walker, gait belt, assist x1 for ambulation. SCDs in place. No c/o at this time.
--- NOTE | 2020-11-08 10:47 | NUR ---
Follow-up visit; Patient thanked [employer] for coming in to pray with her again today. Patient experiencing anxiety from being sent to [place] if her insurance permits. prayed with Connie about her nina and believing God has the best plan for us, even when we can't imaging what it might be. Perhaps there will be someone there who can help her even more. Connie thanked for encouragement along with prayer.
[2020-11-08 11:21] VITALS: BP 101/67; PULSE 93; TEMP 98
[2020-11-08 17:57] VITALS: BP 106/80; PULSE 97
[2020-11-08 19:46] VITALS: BP 105/74; PULSE 80; TEMP 98.6
--- NOTE | 2020-11-08 20:36 | NUR ---
PATIENT RESTING IN BED. NO DISTRESS NOTED. IV ABX INFUSING. VSS. PEREZ TO GRAVITY WITH CLEAR YELLOW URINE. RIGHT HIP DRESSING C/D/I. CALL IN REACH, BED LOW AND LOCKED. WILL CONTINUE TO MONITOR.
[2020-11-09 00:12] VITALS: BP 105/76; PULSE 100; TEMP 98.1
[2020-11-09 03:41] VITALS: BP 110/71; PULSE 74; TEMP 98.4
[2020-11-09 07:35] VITALS: BP 101/56; PULSE 112; TEMP 97.9
--- NOTE | 2020-11-09 11:18 | NUR ---
Patient alert and oriented, answers questions appropriately. See assessment. Right hip dressing CDI, no redness noted. 50% weight bearing to RLE. SCDs in place. No c/o at this time.
[2020-11-09 11:45] VITALS: BP 104/57; PULSE 70; TEMP 98
[2020-11-09 16:00] VITALS: BP 110/57; PULSE 103; TEMP 98.3
--- NOTE | 2020-11-09 19:39 | NUR ---
PATIENT RESTING IN BED. ALERT AND ORIENTED X4. NO RESPIRATORY DISTRESS, RECEIVING NEBULIZER TREATMENT. PM MEDICATIONS GIVEN, ZOFRAN FOR NAUSEA. RIGHT HIP DRESSING CHANGED. CALL LIGHT IN REACH. WILL CONTINUE TO MONITOR.
[2020-11-09 19:59] VITALS: BP 112/59; PULSE 75; TEMP 98
[2020-11-10] VITALS (7 sets, daily range): BP systolic 93–121; BP diastolic 37–74; PULSE 94–109; TEMP 97.6–98.2
[2020-11-10 09:14] LABS: MEAN CELL VOLUME 97 fl (80.0-100.0); MEAN CORPUSCULAR HGB CONC 29 g/dl (33.0-37.0); MEAN PLATELET VOLUME 8.7 fl (7.4-10.4); PLATELET COUNT 647 K/mm3 (130-400); RED BLOOD COUNT 2.76 M/mm3 (4.10-5.30); REDCELL DISTRIBUTION WIDTH-CV 18.6 % (11.5-14.5)
[2020-11-10 09:23] LABS: HEMATOCRIT 26.8 % (37.0-47.0); HEMOGLOBIN 7.8 g/dl (12.5-16.0); MEAN CORPUSCULAR HEMOGLOBIN 28 pg (27.0-31.0)
[2020-11-10 09:27] LABS: CALCIUM 8.6 mg/dL (8.4-10.2); CREATININE, serum 1.04 (0.52-1.25); POTASSIUM 4.1 mmol/L (3.4-5.0)
[2020-11-10 10:08] LABS: BAND 6 % (0-10); BASOPHIL 1 % (0-2); EOSINOPHIL 4 % (0-4); HYPOCHROMIA 2+; LYMPHOCYTE 32 % (20.0-51.0); NEUTROPHILS 43 % (42.0-75.2); PLATELET ESTIMATE INCREASED (NORMAL)
[2020-11-10 10:09] LABS: ANISOCYTOSIS 1+
--- NOTE | 2020-11-10 19:00 | NUR ---
IV ANTIBIOTIC COMPLETE, PICC LINE FLUSHED WITH GOOD BLOOD RETURN NOTED.
--- NOTE | 2020-11-10 22:03 | NUR ---
PT REPORTS PAIN TO RT HIP AND BACK. MEDICATED WITH OXYCODONE 10MG PO AND FLEXERIL WITH SCHEDULED HS MEDS. DRSG TO RT HIP D/I. PICC TO RT UPPER ARM INTACT. PT REPORTS MIGRAINE AND ASKING FOR HER IMITREX.
--- NOTE | 2020-11-10 22:11 | NUR ---
MEDICATED WITH IMITREX AND ZOFRAN PO FOR MIGRAINE.
--- NOTE | 2020-11-11 02:13 | NUR ---
MEDICATED WITH OXYCODONE 10MG PO FOR MIDDLE BACK AND RT HIP PAIN.
[2020-11-11 04:10] VITALS: BP 108/66; PULSE 97; TEMP 97.8
--- NOTE | 2020-11-11 06:40 | NUR ---
PT MEDICATED WITH OXYCODONE 10MG PO FOR BACK/HIP PAIN. IV ANTIBIOTIC CONNECTED TO RT PICC, FLUSHES WELL WITH GOOD BLOOD RETURN, CAPS CHANGED WITH LAB DRAW TODAY.
[2020-11-11 06:58] LABS: MEAN CELL VOLUME 98 fl (80.0-100.0); MEAN CORPUSCULAR HGB CONC 29 g/dl (33.0-37.0); MEAN PLATELET VOLUME 8.7 fl (7.4-10.4); PLATELET COUNT 609 K/mm3 (130-400); REDCELL DISTRIBUTION WIDTH-CV 18.4 % (11.5-14.5)
[2020-11-11 06:59] LABS: HEMATOCRIT 27.4 % (37.0-47.0); MEAN CORPUSCULAR HEMOGLOBIN 29 pg (27.0-31.0)
[2020-11-11 07:26] LABS: CALCIUM 8.5 mg/dL (8.4-10.2); CREATININE, serum 1.15 (0.52-1.25); POTASSIUM 4.3 mmol/L (3.4-5.0)
[2020-11-11 07:33] VITALS: BP 102/60; PULSE 100; TEMP 97.8
[2020-11-11 07:47] LABS: BAND 4 % (0-10); BASOPHIL 1 % (0-2); EOSINOPHIL 7 % (0-4); LYMPHOCYTE 31 % (20.0-51.0); NEUTROPHILS 48 % (42.0-75.2); PLATELET ESTIMATE INCREASED (NORMAL)
--- NOTE | 2020-11-11 09:29 | NUR ---
utility worker production contacted Stuart with [facility] and faxed clinical information. Awaiting insurance authorization. Stuart is hopeful that he will receive notification today.
--- NOTE | 2020-11-11 10:11 | NUR ---
PATIENT IS ALERT AND ORIENTED X4. PATIENT HAD DRESSING CHANGE TO RIGHT HIP PER ORDERS WITH GUAZE AND FOAM TAPE. PATIENT PICC LINE HAS BEEN CARED FOR PER ORDERS. PATIENT HAS PEREZ WITH YELLOW AND CLEAR URINE OUTPUT. PATIENT IS IN BED WITH SCD'S ON BILATERAL LOWER EXTREMITIES. PATIENT DENIES FURTHER NEEDS AT THIS TIME AND RECIEVING PAIN MEDS PER ORDERS. HEAD TO TOE ASSESSMENT COMPLETE. CALL LIGHT WITHIN REACH.
[2020-11-11 11:01] VITALS: BP 122/72; PULSE 95; TEMP 98.5
--- NOTE | 2020-11-11 14:10 | NUR ---
TALKED WITH S.S. STILL WAITING TO HEAR FROM INSURANCE FOR [facility]. PATIENT INQUIRING ABOUT [facility] BUT HAS BEEN DENIED DUE TO HIGH CARES.
--- NOTE | 2020-11-11 14:20 | NUR ---
workers' compensation mediator met with patient and explained we are awaiting patient's insurance authorization for transfer to [facility].
[2020-11-11 17:23] VITALS: BP 98/58; PULSE 99; TEMP 98.5
[2020-11-11 20:18] VITALS: BP 173/70; PULSE 106; TEMP 97.8
--- NOTE | 2020-11-11 21:18 | NUR ---
PT IN BED, ASKING FOR HS MEDS INCLUDING PAIN MEDS, MIGRAINE MEDS AND NAUSEA MEDS. MEDICATED AT THIS TIME WITH OXYCODONE 10MG PO, FLEXERIL, ORAL ZOFRAN, IMMITREX AND SCHEDULED HS MEDS. RT HIP WITH BULKY DRSG D/I. PEREZ TO BSD WITH YELLOW URINE. PICC TO SAEED, FLUSHES WELL WITH GOOD BLOOD RETURN. ABLE TO PULL SELF UP IN BED.
[2020-11-11 23:49] VITALS: BP 115/97; PULSE 108; TEMP 98.7
--- NOTE | 2020-11-12 00:13 | NUR ---
PT USES BSC AND BACK TO BED. REPORTS PAIN TO BACK AND RT HIP, MEDICATED WITH NORCO 7.5MG PO IT IS TOO EARLY FOR OXYCODONE.
--- NOTE | 2020-11-12 01:14 | NUR ---
MEDICATED WITH OXYCODONE 10MG PO FOR PAIN, IV ANTIBIOTIC CONNECTED AND INFUSING WITHOUT PROBLEM.
--- NOTE | 2020-11-12 02:00 | NUR ---
IV ANTIBIOTIC COMPLETE, PICC FLUSHES WELL. PT ASKS FOR PAIN MEDS THEN REMEMBERS SHE JUST HAD DOSE. ENCOURAGED TO SLEEP.
[2020-11-12 04:39] VITALS: BP 92/48; PULSE 95; TEMP 97.7
--- NOTE | 2020-11-12 06:30 | NUR ---
IV ANTIBIOTIC CONNECTED, PT SLEEPING AT THIS TIME.
[2020-11-12 08:17] VITALS: BP 100/66; PULSE 86; TEMP 97
--- NOTE | 2020-11-12 08:30 | NUR ---
PATIENT UP IN CHAIR WAITING FOR BREAKFAST. PATIENT ALERT AND ORIENTED X4.PICC ON RIGHT ARM WITH NO REDNESS, DRAINAGE, OR SWELLING. RIGHT HIP DRESSING IS CLEAN, DRY, AND INTACT. PATIENT GIVEN PAIN MEDS PER ORDERS. AWAITING INSURANCE FOR DISCHARGE TO REHAB. PATIENT DENIES FURTHER NEEDS AT THIS TIME. HEAD TO TOE ASSESSMENT COMPLETE. CALL LIGHT WITHIN REACH.
[2020-11-12 12:04] VITALS: BP 115/70; PULSE 93; TEMP 97.9
--- NOTE | 2020-11-12 13:59 | NUR ---
Stuart with [facility] states that patient's insurance denied [facility]. rock room worker contacted Mary with [facility] and confirms they have bed availability. Dr Donald spoke with [facility] provider, Debbie and we await transfer acceptance.
--- NOTE | 2020-11-12 15:25 | NUR ---
workers' compensation hearings officer met with patient and advised that her insurance had denied [facility] level [facility] care and that we were, again, referring to [facility]. Patient remains a 2 person transfer. Patient verbalized happines that she will be transferring to [facility] when they have an opening and obtaining insurance authorization.
[2020-11-12 17:02] VITALS: BP 122/48; PULSE 65; TEMP 97.3
[2020-11-12 17:18] VITALS: BP 109/65; PULSE 101; TEMP 98.1
[2020-11-12 19:25] VITALS: BP 120/56; PULSE 104; TEMP 97.6
[2020-11-13] VITALS (7 sets, daily range): BP systolic 98–118; BP diastolic 56–86; PULSE 95–113; TEMP 97.4–98.4
--- NOTE | 2020-11-13 06:36 | NUR ---
Patient slept most the night. Minimal complaints of pain. Had some nausea at bedtime but has been fine since than. She got up to the bathroom once during the night. leiva secured to leg, urine yellow and clear. Dressing to right hip is C/D/I. No other changes at this time. Call light within reach.
--- NOTE | 2020-11-13 10:08 | NUR ---
home health care social worker confirmed that [facility] bed put in for insurance authorization for transfer and continues to wait for a response at this time. Worker met with providers and advised of the above information.
--- NOTE | 2020-11-13 13:59 | NUR ---
Patient was tearful this morning following working with Occupational Therapy. This nurse sat with patient and let her talk and this nurse applied lotion to her back and bilateral legs. Patient was then a one person touch assist with transferring from the bed to the wheelchair and back to bed. Patient was independent on all her grooming. She is alert and is able to express her needs. She is currently resting in her bed with call light in reach. Will continue to monitor.
--- NOTE | 2020-11-13 15:38 | NUR ---
Patient worked with PT this afternoon and did some walking. She is currently resting in bed, call light in reach and bed alarm set. Denies questions at this time.
[2020-11-14 04:00] VITALS: BP 86/60; PULSE 96; TEMP 98
[2020-11-14 05:33] VITALS: BP 103/64
[2020-11-14 07:46] VITALS: BP 115/67; PULSE 98; TEMP 98
[2020-11-14 11:52] VITALS: BP 99/63; PULSE 95; TEMP 98.1
--- NOTE | 2020-11-14 13:42 | NUR ---
[facility] accepts patient to skilled care today with authorization. plate put in worker arranged [facility] ambulance to transport today at 3:00 and bill the hospital.
[2020-11-14] MEDS ORDERED: AMPICILLIN AND1 PD3 IV (13:45)
--- NOTE | 2020-11-14 15:24 | NUR ---
PT RECEIVED TODAY RESTING IN BED. NO S/S OF DISTRESS NOTICED. PT AWAKE AND ALERT. PEREZ IN PLACE AND DRAINING. PICC LINE NOTED TO THE RIGHT UPPER ARN. MEDICATIONS ADMINISTERED ORDERED. PHYSICAL THERAPIST WORKED WITH PT TODAY. PAIN MEDICATION ADMINISTERED WAS EFFECTIVE. PT HAD A BM TODAY. BLOOD GLUCOSE CHECKED ORDERED. PT ATE HER MEALS. D/C ORDER'S RECEIVED. PT MADE AWARE. CALL PLACED TO [facility] AND REPORT WAS GIVEN TO NURSE DE GUZMAN. EMS TRANSPORTATION PICKED YOU PT. NO S/S OF DISTRESS NOTICED.
== END 2020-11-14 15:10 | disposition swing bed (61) | DRG 854 ==
LOC: JCC 18:47 → SURG 20:22
PROVIDERS: Nurse Practitioner Family; Orthopaedic Surgery; Physician Assistant; ADMIT Student in an Organized Health Care Education/Training Program
PROC: 0JCL0ZZ Extirpation of Matter from Right Upper Leg Subcutaneous Tissue and Fascia, Open Approach (ICD-10-PCS; 2020-11-01)
PROC: 0KBQ0ZZ Excision of Right Upper Leg Muscle, Open Approach (ICD-10-PCS; principal; 2020-11-01 13:00)
PROC: 02HV33Z Insertion of Infusion Device into Superior Vena Cava, Percutaneous Approach (ICD-10-PCS; 2020-11-04)
DX: A41.9 Sepsis, unspecified organism (principal); L76.32 Postprocedural hematoma of skin and subcutaneous tissue following other procedure; Z68.43 Body mass index [BMI] 50.0-59.9, adult; E66.2 Morbid (severe) obesity with alveolar hypoventilation; N17.9 Acute kidney failure, unspecified; N39.0 Urinary tract infection, site not specified; L76.34 Postprocedural seroma of skin and subcutaneous tissue following other procedure; R65.10 Systemic inflammatory response syndrome (SIRS) of non-infectious origin without acute organ dysfunction; D64.9 Anemia, unspecified; E87.6 Hypokalemia; F31.9 Bipolar disorder, unspecified; F20.9 Schizophrenia, unspecified; M79.7 Fibromyalgia; G89.29 Other chronic pain; I10 Essential (primary) hypertension; E11.9 Type 2 diabetes mellitus without complications; D47.3 Essential (hemorrhagic) thrombocythemia; J45.909 Unspecified asthma, uncomplicated; J44.9 Chronic obstructive pulmonary disease, unspecified; K21.9 Gastro-esophageal reflux disease without esophagitis; R33.9 Retention of urine, unspecified; S72.141D Displaced intertrochanteric fracture of right femur, subsequent encounter for closed fracture with routine healing; Y83.8 Other surgical procedures as the cause of abnormal reaction of the patient, or of later complication, without mention of misadventure at the time of the procedure; W19.XXXD Unspecified fall, subsequent encounter; B95.2 Enterococcus as the cause of diseases classified elsewhere; G43.909 Migraine, unspecified, not intractable, without status migrainosus; Y83.9 Surgical procedure, unspecified as the cause of abnormal reaction of the patient, or of later complication, without mention of misadventure at the time of the procedure; Z79.52 Long term (current) use of systemic steroids; Z79.01 Long term (current) use of anticoagulants; Z79.4 Long term (current) use of insulin; Z86.711 Personal history of pulmonary embolism; Z90.710 Acquired absence of both cervix and uterus; Z90.49 Acquired absence of other specified parts of digestive tract; Z87.891 Personal history of nicotine dependence; Z88.6 Allergy status to analgesic agent; Z88.8 Allergy status to other drugs, medicaments and biological substances; Z91.81 History of falling
CPT/HCPCS: 99223-AI; 99231-AI; 99232-AI; 99233-AI; 99239; A4314; C1751; J0295; J0330; J0692; J0696; J1170; J1650; J2250; J2405; J2704; J2997; J3010; J3370; J3480; J7030; J7040; J7050; J7512; P9016

== ENCOUNTER → 2020-10-31 | Outpatient (REF) | LOC: ZLAB.WCH 18:40 | DX: Z01.89 Encounter for other specified special examinations (principal) ==

== ENCOUNTER → 2020-10-31 | Outpatient (REF) | LOC: ZLAB.WCH 18:42 | DX: Z01.89 Encounter for other specified special examinations (principal) ==

== ENCOUNTER 2021-02-18 14:44 | Outpatient (CLI) | payer MEDICAID ==
[~2021-02-18 14:44] MED LIST changes: +AMPICILLIN AND1 PD3 IV; +GENTLE LAXATIVE10 MG RC; +MILK OF MA400 MG/52 PO; +ONE-A-DAY ESSE1 EACH PO; +SENNA-S 50 MG-81 TAB PO
[2021-02-18 16:22] VITALS: BP 95/67; PULSE 107; TEMP 97.8
[2021-02-18] MEDS ORDERED: GLUCOPHAGE1000 MG PO (17:52)
[2021-02-18] MEDS ORDERED: UBRELVY50 MG PO (17:53)
== END 2021-02-18 17:55 | disposition home or self-care (01) ==
LOC: EUO 14:44
DX: M81.0 Age-related osteoporosis without current pathological fracture (principal)
CPT/HCPCS: J3489

== ENCOUNTER 2021-07-07 18:52 | Inpatient (IN) | payer MEDICAID ==
[~2021-07-07] VITALS: Ht 157.5 cm; Wt 122.3 kg
[2021-07-07 19:46] LABS: COLLECTION METHOD CATHETER
[2021-07-07 19:53] LABS: MUCOUS Present (NOT PRESENT); PH 6 (5-8); SQUAMOUS EPITHELIAL 0-2 /hpf (0-10); URINE APPEARANCE Clear (CLEAR/HAZY); URINE BACTERIA None Seen /hpf (NONE SEEN); URINE BILIRUBIN Negative (NEGATIVE); URINE BLOOD 1+ (NEGATIVE); URINE COLOR Yellow (YELLOW); URINE GLUCOSE 3+ (NEGATIVE); URINE KETONE 1+ (NEGATIVE); URINE LEUKOCYTE ESTERASE Negative (NEGATIVE); URINE NITRATE Negative (NEGATIVE); URINE PROTEIN(semi-quant) Negative (NEGATIVE); URINE RBC 0-2 /hpf (0-2); URINE UROBILINOGEN Negative (NEGATIVE)
[2021-07-07 20:02] LABS: BASO % 0.2 % (0.0-2.0); EOS % 0.1 % (0.0-4.0); GRAN # 9.2 K/mm3 (1.4-6.5); GRAN % 76.1 % (42.2-75.2); HEMATOCRIT 42.4 % (37.0-47.0); HEMOGLOBIN 14.4 g/dl (12.5-16.0); LYMPH # 2.1 K/mm3 (1.2-3.4); MEAN CELL VOLUME 97 fl (80.0-100.0); MEAN CORPUSCULAR HEMOGLOBIN 33 pg (27-31); MEAN CORPUSCULAR HGB CONC 34 g/dl (33.0-37.0); MEAN PLATELET VOLUME 10.9 fl (7.4-10.4); MONO # 0.7 K/mm3 (0.1-0.6); MONO % 5.9 % (1.7-9.3); PLATELET COUNT 424 K/mm3 (130-400); RED BLOOD COUNT 4.38 M/mm3 (4.10-5.30); REDCELL DISTRIBUTION WIDTH-CV 15.2 % (11.5-14.5)
[2021-07-07 20:20] LABS: ALBUMIN 3.5 gm/dL (3.5-5.0); BILIRUBIN,TOTAL 0.6 mg/dL (0.2-1.2); CALCIUM 10.2 mg/dL (8.4-10.2); CREATININE, serum 2.13 mg/dL (0.57-1.11); POTASSIUM 4.1 mmol/L (3.5-4.5); TOTAL PROTEIN 8.8 gm/dL (6.2-8.1)
[2021-07-07 21:30] LABS: ACETONE,SERUM SMALL
[2021-07-07 22:28] LABS: LIPASE 47 U/L (8-78)
[2021-07-07] MEDS ORDERED: SEROQUEL50 MG PO (23:11)
[2021-07-07 23:46] VITALS: BP 138/8; BP 138/80; PULSE 100; TEMP 98
[2021-07-08] VITALS (12 sets, daily range): BP systolic 125–152; BP diastolic 44–94; PULSE 58–119; TEMP 97.7–98.1
--- NOTE | 2021-07-08 02:50 | NUR ---
PATIENT UP TO FLOOR AROUND 2300. ALERT AND ORIENTED. VSS. C/O ABD PAIN, PRN MORPHINE GIVEN. HS MEDS GIVEN AND PATIENT IMMEDIATELY VOMITED THEM BACK UP. CALL PLACED TO EULALIA HUIZAR, AND ORDER FOR IV PHENERGAN PLACED AND GIVEN. BLOOD SUGAR WAS 460 WHEN THEY CHECKED IN ER, DISCUSSED WITH EULALIA AND 6 OF NOVOLIN IV AND 14 OF SSI SQ GIVEN. MED RX AND ADMIT ASSESSMENTS COMPLETED. CONTACTED BY EULALIA AROUND 0200 AND NOTIFIED THAT PATIENT HAS A SMALL BOWEL OBSTRUCTION. ORDER TO BE NPO AND NO PO MEDS IN PLACE. ADDITIONAL DOSE OF IV MORPHINE GIVEN PATIENT WAS C/O INCREASING PAIN. CURRENTLY RESTING IN BED.
[2021-07-08 06:23] LABS: BASO % 0.3 % (0.0-2.0); EOS % 0.3 % (0.0-4.0); HEMATOCRIT 39.3 % (37.0-47.0); HEMOGLOBIN 13.5 g/dl (12.5-16.0); LYMPH # 2.4 K/mm3 (1.2-3.4); LYMPH % 17.3 % (20.0-51.0); MEAN CELL VOLUME 97 fl (80.0-100.0); MEAN CORPUSCULAR HEMOGLOBIN 33 pg (27-31); MEAN CORPUSCULAR HGB CONC 34 g/dl (33.0-37.0); MEAN PLATELET VOLUME 10.9 fl (7.4-10.4); MONO # 1.2 K/mm3 (0.1-0.6); MONO % 8.4 % (1.7-9.3); PLATELET COUNT 402 K/mm3 (130-400); RED BLOOD COUNT 4.07 M/mm3 (4.10-5.30); REDCELL DISTRIBUTION WIDTH-CV 15.2 % (11.5-14.5)
[2021-07-08 06:43] LABS: ALBUMIN 2.7 gm/dL (3.5-5.0); BILIRUBIN,TOTAL 0.6 mg/dL (0.2-1.2); CALCIUM 8.9 mg/dL (8.4-10.2); CREATININE, serum 1.31 mg/dL (0.57-1.11); POTASSIUM 3.3 mmol/L (3.5-4.5); TOTAL PROTEIN 7.1 gm/dL (6.2-8.1)
--- NOTE | 2021-07-08 07:34 | NUR ---
WHEN CHECKING ON PT, SHE WAS IN TEARS AND STATED HER PAIN WAS 10/10. STATED PAIN MEDICATION AND NAUSEA MEDS WEREN'T HELPING. RN CALLED PHARMACY TO HAVE FELICITAS MADE AND SENT UP. SPOKE WITH PT AND DETERMINED THAT SHE TAKES RATHER HIGH DOSE OF CHRONIC PAIN MEDICATION AT HOME. CALLED DR. PETE TO MAKE HIM AWARE AND ASKED FOR SOMETHING STRONGER FOR PAIN FOR PATIENT SINCE 2MG MORPHINE WAS NOT HELPING. DR. PETE TO PUT IN ORDERS FOR STRONGER PAIN MEDICATIONS. AWAITING ORDERS.
--- NOTE | 2021-07-08 10:49 | NUR ---
First visit from the manager stylist. No needs right now.
--- NOTE | 2021-07-08 14:11 | NUR ---
RANJEET met with the patient to discuss discharge plan. The patient lives alone in [place]. She reports needing assistance with bathing and has a cane and rollator. She has private duty services from [facility] and she states that they visit her 2-3 times a week. They help her with bathing. The patient's PCP is Dr. Richardson Jewell and she receives her medications from [facility]. The patient's DPOA-HC is in EMR and it designates her mother, Lauren (ph#[phone]). The alternate is her father, Mendoza (ph#[phone]). The patient plans on returning home upon discharge. She is to have surgery this afternoon. PT/OT have been ordered. RANJEET to continue to follow. *Discharge plan: Home. Will await PT/OT recs*
--- NOTE | 2021-07-08 18:15 | NUR ---
PATIENT RETURNED FROM OR. PATIENT IS ASLEEP. OR REPORTS PATIENT'S PAIN IS MUCH BETTER CONTROLLED NOW, DESPITE HTN AND TACHYCARDIA. PATIENT IS NOW ON 3L OXYGEN NC. SURGEON FOUND NOTHING, STARTED WITH 3 LAP SITES AND THEN OPENED UP VIA MIDLINE INCISION. NO PERF/OBSTRUCTION, ETC FOUND. PATIENT IS NPO AND ON BOWEL REST.
[2021-07-09] VITALS (13 sets, daily range): BP systolic 114–150; BP diastolic 63–91; PULSE 103–126; TEMP 97.5–98.6
[2021-07-09 06:17] LABS: BASO # 0.1 K/mm3 (0.0-0.2); BASO % 0.5 % (0.0-2.0); EOS % 0.1 % (0.0-4.0); GRAN # 10.2 K/mm3 (1.4-6.5); GRAN % 76.7 % (42.2-75.2); HEMATOCRIT 39.7 % (37.0-47.0); HEMOGLOBIN 13.1 g/dl (12.5-16.0); LYMPH # 2.1 K/mm3 (1.2-3.4); LYMPH % 15.5 % (20.0-51.0); MEAN CELL VOLUME 100 fl (80.0-100.0); MEAN CORPUSCULAR HEMOGLOBIN 33 pg (27-31); MEAN CORPUSCULAR HGB CONC 33 g/dl (33.0-37.0); MONO # 0.9 K/mm3 (0.1-0.6); MONO % 6.4 % (1.7-9.3); PLATELET COUNT 374 K/mm3 (130-400); RED BLOOD COUNT 3.98 M/mm3 (4.10-5.30); REDCELL DISTRIBUTION WIDTH-CV 15.9 % (11.5-14.5)
--- NOTE | 2021-07-09 06:32 | NUR ---
PATIENT UP TO THE BEDSIDE COMMODE SEVERAL TIMES THROUGHOUT THE SHIFT. MORPHINE KINDERGARTEN TEACHER ASSISTANT INFUSING PER 'S ORDERS. ABDOMINAL DRESSING CHANGED X'S 2 THROUGHOUT THE NIGHT DUE TO SEROSANGUINEOUS DRAINAGE. ZOFRAN ADMINISTERED X'S 1 THIS SHIFT. NO NEW ISSUES NOTED THIS SHIFT.
[2021-07-09 06:42] LABS: ALBUMIN 2.3 gm/dL (3.5-5.0); CALCIUM 8.8 mg/dL (8.4-10.2); CREATININE, serum 1.21 mg/dL (0.57-1.11); MAGNESIUM 1.8 mg/dL (1.6-2.6); PHOSPHOROUS 2.1 mg/dL (2.3-4.7); POTASSIUM 3.7 mmol/L (3.5-4.5)
--- NOTE | 2021-07-09 09:44 | NUR ---
Patient on EXTRACTOR OPERATOR SOLVENT PROCESS pump, end tidal in place. Patient appears to be doing well, ambulating to C w/ 1x assist and walker. 3 bandaids covering lap sites are CDI, ABD covering midline incision is CDI. Patient placed on CL diet, and has been eating ice chips and tolerating this well. Patient did vomit approx. 10ml of brown emesis. Call light is w/i reach. Patient instructed to call if any needs arise.
[2021-07-09 13:05] LABS: ARTERIAL BLD GAS O2 SATURATION 91.9 % (92-100); ARTERIAL BLD GAS TCO2 CT 26.4; ARTERIAL BLOOD GAS BASE EXCESS -0.3 (-2-2); ARTERIAL BLOOD GAS PCO2 43.7 mmHg (35-45); ARTERIAL BLOOD GAS PO2 61.8 mmHg (80-100); ARTERIAL BLOOD GAS pH 7.38 (7.35-7.45)
--- NOTE | 2021-07-09 14:32 | NUR ---
PT/OT are recommending home with home health if able. PT notes that the patient should make progress as the patient's pain decreases and they will continue to monitor the patient's progress. The patient has Medicaid and Medicaid does not pay for home health PT/OT. RANJEET and SW student met with the patient to review their recommendation. The patient first stated that that home would be her only option. SW discussed outpatient therapy and addressed how she went to [facility] in the past. The patient states that she would be open to [facility]. The patient appeared to not feel well and asked for SWs to come back tomorrow. RANJEET contacted Linda at [facility] and gave her the referral. Awaiting screen and if they will have a bed available.
--- NOTE | 2021-07-09 19:19 | NUR ---
Patient has had a very eventful day. CARRY IN WORKER placed on hold as patient had been becoming confused and very drowsy. W/in a few hours, patient began vomiting again. Emesis was dark green. Hospitalist notified 2x about patient's increased emesis. Dr. Johnson then notified and came to see the patient. NG tube was placed by PATRICIA Gonzales. There was difficulty while placing the tube as patient kept vomiting while doing so. Once tube was finally placed and secured, 800ml of dark green bile was suctioned out w/in 45mins of the tube being placed. Tube is at 55cm in the right nostril and secured. Currently on low intermittent suction. Patient is tolerating this well, does occasionally gag, but no emesis present. After tube was placed, patient was given a bed bath and linens were changed.
--- NOTE | 2021-07-09 19:43 | NUR ---
TX GIVEN VIA MASK, PT VERY SLEEPY T/O TX. TOLERATED WELL.
--- NOTE | 2021-07-09 21:10 | NUR ---
PT STATED THAT SHE DOES NOT USE A CPAP OR BIPAP AT HOME. PT ALSO STATED THAT SHE HAD A SLEEP STUDY AND THAT THE FINDINGS WERE THAT SHE NEEDS OXYGEN AT NIGHT BUT NOT CPAP/BIPAP. PT ON O2 NC PER HER HOME ROUTINE. (CPAP/BIPAP ORDER HAS NO SETTINGS AND NO HOME SETTINGS TO USE.)
[2021-07-10] VITALS (7 sets, daily range): BP systolic 130–144; BP diastolic 69–93; PULSE 112–121; TEMP 97.9–98.9
[2021-07-10 06:30] LABS: HEMATOCRIT 39.4 % (37.0-47.0); MEAN CELL VOLUME 99 fl (80.0-100.0); MEAN CORPUSCULAR HEMOGLOBIN 33 pg (27-31); MEAN CORPUSCULAR HGB CONC 33 g/dl (33.0-37.0); MEAN PLATELET VOLUME 10.8 fl (7.4-10.4); PLATELET COUNT 336 K/mm3 (130-400); RED BLOOD COUNT 3.97 M/mm3 (4.10-5.30); REDCELL DISTRIBUTION WIDTH-CV 16.4 % (11.5-14.5)
[2021-07-10 06:59] LABS: ALBUMIN 2.1 gm/dL (3.5-5.0); CALCIUM 8.3 mg/dL (8.4-10.2); CREATININE, serum 0.99 mg/dL (0.57-1.11); MAGNESIUM 2.1 mg/dL (1.6-2.6); PHOSPHOROUS 2.5 mg/dL (2.3-4.7); POTASSIUM 3.6 mmol/L (3.5-4.5)
[2021-07-10 07:12] LABS: BAND 4 % (0-10); LYMPHOCYTE 23 % (20.0-51.0); METAMYELOCYTE 1 % (0-0); MYELOCYTE 1 % (0-0); NEUTROPHILS 69 % (42.0-75.2)
[2021-07-10 07:13] LABS: TARGET CELLS 1+
--- NOTE | 2021-07-10 09:08 | NUR ---
Patient appears to be doing better today than yesterday. NG tube still in place and at 55cm. 200ml drained w/ LIS. Patient currently working w/ PT. Dr. Johnson saw the patient this AM, site dressing changed. Student nurse will be working w/ this RN today and assisting in patient care.
--- NOTE | 2021-07-10 11:47 | NUR ---
Patient's SCREW EYE ASSEMBLER discontinued. 8mg wasted w/ PATRICIA Novoa.
--- NOTE | 2021-07-10 18:12 | NUR ---
IV in the right AC began leaking. This RN attempted to get an IV 2x, Sommer also attempted 2x. Dr. Moreira was called and asked for PICC placement. PICC successfully placed into the right upper arm by AIVS. Patient has only asked for 1 dose of PRN morphine since the GOVERNMENT SERVICE EXECUTIVE has been discontinued.
--- NOTE | 2021-07-10 19:27 | NUR ---
TX GIVEN VIA MASK, TOLERATED WELL. PT FOUND ON ROOM AIR, FLOOR WORKER WELL SERVICE OFF AND ETCO2 OFF. TOLERATING WELL.
--- NOTE | 2021-07-10 22:00 | NUR ---
Patient is resting in bed, alert and oriented x 4, VSS, complains of pain and nausea, PRN provided. Telemetry in place, tachycardic. Receiving NS 75ML/HR. NG TUBE with intermitent suction and green output. Assessment completed, medications provided. No other needs at this time. Continue monitoriong.
[2021-07-11 00:12] VITALS: BP 123/76; PULSE 113; TEMP 98.8
[2021-07-11 04:17] VITALS: BP 117/74; PULSE 110; TEMP 98.1
[2021-07-11 06:15] LABS: MEAN CELL VOLUME 102 fl (80.0-100.0); MEAN CORPUSCULAR HGB CONC 32 g/dl (33.0-37.0); MEAN PLATELET VOLUME 10.7 fl (7.4-10.4); PLATELET COUNT 299 K/mm3 (130-400); RED BLOOD COUNT 3.26 M/mm3 (4.10-5.30); REDCELL DISTRIBUTION WIDTH-CV 16.3 % (11.5-14.5)
--- NOTE | 2021-07-11 06:24 | NUR ---
Patient has been stable along the night. Continues with green output from the NG int sucction. Right now receiving fluids and zosyn. Report will be given to day RN.
[2021-07-11 06:29] LABS: HEMATOCRIT 33.3 % (37.0-47.0); MEAN CORPUSCULAR HEMOGLOBIN 33 pg (27-31)
[2021-07-11 06:30] LABS: HEMOGLOBIN 10.8 g/dl (12.5-16.0)
[2021-07-11 06:39] LABS: ALBUMIN 1.7 gm/dL (3.5-5.0); CALCIUM 7.2 mg/dL (8.4-10.2); CREATININE, serum 0.72 mg/dL (0.57-1.11); MAGNESIUM 1.6 mg/dL (1.6-2.6); PHOSPHOROUS 2.1 mg/dL (2.3-4.7)
[2021-07-11 06:44] LABS: POTASSIUM 2.6 mmol/L (3.5-4.5)
[2021-07-11 06:53] LABS: ANISOCYTOSIS 1+; BAND 12 % (0-10); EOSINOPHIL 5 % (0-4); LYMPHOCYTE 23 % (20.0-51.0); METAMYELOCYTE 1 % (0-0); NEUTROPHILS 52 % (42.0-75.2); PLATELET ESTIMATE NORMAL (NORMAL)
--- NOTE | 2021-07-11 09:05 | NUR ---
WHILE THERAPY WAS WORKING WITH PATIENT NG TUBE WAS ENTAGLED UNDER PATIENT AND WAS DISLODGED FROM NASAL CAVITY. PROVIDER NOTIFIED. WILL HOLD ON REPLACING AND SEE HOW PATIENT TOLERATES PO INTAKE.
[2021-07-11 12:07] VITALS: BP 135/75; PULSE 108; TEMP 98
--- NOTE | 2021-07-11 13:48 | NUR ---
Primary nurse was assisted with [phone] with patient care by [facility] student Shelly Cook and [facility] instructor Dorothea Kelley MSN, RN
--- NOTE | 2021-07-11 14:44 | NUR ---
Zeina, at [facility], states that they have not received prior auth yet from the patient's insurance for swing bed and they will likely not hear anything back over the weekend. PT notified SW that the patient has made progress with therapy and that she followed up with OT. PT/OT feels like the patient can manage at home now. SW met with the patient to update and review discharge plan. The patient states that she does not feel like there is a need for swing bed now and feels comfortable returning home upon discharge. *Discharge plan: home*
[2021-07-11 15:22] VITALS: BP 137/82; PULSE 107; TEMP 98.1
--- NOTE | 2021-07-11 19:24 | NUR ---
PT REFUSED TX AT THIS TIME DUE TO N/V.
[2021-07-11 21:07] VITALS: BP 134/83; PULSE 115; TEMP 97.9
--- NOTE | 2021-07-11 21:30 | NUR ---
Patient is resting in bed, alert and oriented x 4, VSS. Complains of pain in her abdomen and nausea, prn provided. Telemetry in place, tachycardic 110's. 3L O2 NC. Receiving NS 100ML/HR. Assessment completed, medications provided. Assisted to the commode. No other needs at this time. Call [facility] within reach.
[2021-07-12 00:57] VITALS: BP 131/86; PULSE 114; TEMP 98
[2021-07-12 04:59] VITALS: BP 128/75; PULSE 112; TEMP 98.5
--- NOTE | 2021-07-12 07:24 | NUR ---
Patient did not want to eat her dinner. She still has pain and nausea. PRN Provided. Continue receiving fluids and antibiotics. Report will be given to day RN.
[2021-07-12 07:52] LABS: HEMOGLOBIN 10.4 g/dl (12.5-16.0); MEAN CELL VOLUME 103 fl (80.0-100.0); MEAN CORPUSCULAR HEMOGLOBIN 33 pg (27-31); MEAN CORPUSCULAR HGB CONC 32 g/dl (33.0-37.0); MEAN PLATELET VOLUME 10.9 fl (7.4-10.4); PLATELET COUNT 364 K/mm3 (130-400); RED BLOOD COUNT 3.16 M/mm3 (4.10-5.30); REDCELL DISTRIBUTION WIDTH-CV 16.6 % (11.5-14.5)
[2021-07-12 08:09] LABS: HEMATOCRIT 32.4 % (37.0-47.0)
[2021-07-12 08:10] LABS: ALBUMIN 1.6 gm/dL (3.5-5.0); CALCIUM 6.9 mg/dL (8.4-10.2); CREATININE, serum 0.69 mg/dL (0.57-1.11); MAGNESIUM 1.6 mg/dL (1.6-2.6); PHOSPHOROUS 1.6 mg/dL (2.3-4.7)
[2021-07-12 08:13] VITALS: BP 139/87; PULSE 119; TEMP 97.6
[2021-07-12 08:39] LABS: BAND 10 % (0-10); BASOPHIL 1 % (0-2); EOSINOPHIL 2 % (0-4); LYMPHOCYTE 18 % (20.0-51.0); NEUTROPHILS 58 % (42.0-75.2)
[2021-07-12 08:40] LABS: PLATELET ESTIMATE NORMAL (NORMAL)
[2021-07-12 12:16] VITALS: BP 125/72; PULSE 114; TEMP 98
[2021-07-12 16:38] VITALS: BP 122/83; PULSE 112; TEMP 97.8
[2021-07-12 21:51] VITALS: BP 141/76; PULSE 113; TEMP 98
--- NOTE | 2021-07-12 23:49 | NUR ---
PT REFUSED TX. PT STATED SHE IS HAVING AN NG PLACED SHORTLY AND SHE DOESN'T FEEL LIKE IT.
[2021-07-13] VITALS (7 sets, daily range): BP systolic 115–135; BP diastolic 60–96; PULSE 81–115; TEMP 97.2–98.3
--- NOTE | 2021-07-13 04:59 | NUR ---
NG TUBE PLACED AT 1945 LAST EVENING. PATIENT TOLERATED PROCEDURE WELL. SEE I&O'S FOR OUTPUT. PATIENTS RIGHT LOWER QUADRANT STAPLE IS OOZING SEROSANGUINEOUS FLUID. DRESSING CHANGED. NO OTHER ISSUES NOTED OR REPORTED BY PATIENT. PRN PAIN MEDICATION AND ZOFRAN ADMINISTERED X'S 1 THROUGHOUT THE NIGHT.
[2021-07-13 07:07] LABS: HEMOGLOBIN 11.6 g/dl (12.5-16.0); MEAN CELL VOLUME 103 fl (80.0-100.0); MEAN CORPUSCULAR HEMOGLOBIN 33 pg (27-31); MEAN CORPUSCULAR HGB CONC 32 g/dl (33.0-37.0); MEAN PLATELET VOLUME 10.2 fl (7.4-10.4); PLATELET COUNT 387 K/mm3 (130-400); RED BLOOD COUNT 3.52 M/mm3 (4.10-5.30); REDCELL DISTRIBUTION WIDTH-CV 16.9 % (11.5-14.5)
[2021-07-13 07:24] LABS: HEMATOCRIT 36.2 % (37.0-47.0)
[2021-07-13 07:25] LABS: ALBUMIN 1.9 gm/dL (3.5-5.0); CREATININE, serum 0.72 mg/dL (0.57-1.11); MAGNESIUM 1.8 mg/dL (1.6-2.6); PHOSPHOROUS 1.9 mg/dL (2.3-4.7); POTASSIUM 3.9 mmol/L (3.5-4.5)
[2021-07-13 08:01] LABS: EOSINOPHIL 5 % (0-4); LYMPHOCYTE 20 % (20.0-51.0); NEUTROPHILS 65 % (42.0-75.2)
[2021-07-13 08:06] LABS: ANISOCYTOSIS 1+; HYPOCHROMIA 1+; PLATELET ESTIMATE NORMAL (NORMAL)
--- NOTE | 2021-07-13 09:45 | NUR ---
PT LAYING SUPINE IN BED ON ROOM AIR. NG ON LOW INTERMITTENT SUCTION IS DRAINING GREEN DRAINAGE INTO CANISTER. MIDLINE ABD DRESSING IS CLEAN, DRY AND INTACT. PUNCTURE SITE ON RIGHT ABD IS DRAINING AND IS COVERED WITH A ABD AND TAPE. PT STATES NO N/V AT THIS TIME. PT STATES NO NEEDS AT THIS TIME. AWAITING CT SCAN. CALL LIGHT IS WITHIN REACH.
--- NOTE | 2021-07-13 10:18 | NUR ---
PT OFF FLOOR FOR CT
--- NOTE | 2021-07-13 19:13 | NUR ---
PT PULLED OUT NG TUBE. WAS REPLACED IN RIGHT NARE. PLACEMENT WAS CONFIRMED. WAS PLACED ON INTERMITTENT SUCTION. DRAINAGE IS BROWN IN COLOR. PT STATES NO PAIN OR NEEDS AT THIS TIME.CALL LIGHT IS WITHIN REACH.
--- NOTE | 2021-07-13 20:28 | NUR ---
TX GIVEN VIA MASK, TOLERATED WELL. PT LEFT ON ROOM AIR AFTER TX,
[2021-07-14 04:35] VITALS: BP 137/81; PULSE 104; TEMP 98.2
--- NOTE | 2021-07-14 04:38 | NUR ---
NO NEW ISSUES NOTED OR REPORTED BY PATIENT THROUGHOUT THE SHIFT. PATIENT ABLE TO TOLERATE CLAMPING THE NG FOR 30 MINUTES TO TAKE HER HS MEDICATION.
[2021-07-14 06:37] LABS: HEMOGLOBIN 11.6 g/dl (12.5-16.0); MEAN CELL VOLUME 100 fl (80.0-100.0); MEAN CORPUSCULAR HEMOGLOBIN 33 pg (27-31); MEAN CORPUSCULAR HGB CONC 33 g/dl (33.0-37.0); PLATELET COUNT 342 K/mm3 (130-400); RED BLOOD COUNT 3.52 M/mm3 (4.10-5.30); REDCELL DISTRIBUTION WIDTH-CV 16.6 % (11.5-14.5)
[2021-07-14 06:46] LABS: HEMATOCRIT 35.2 % (37.0-47.0)
[2021-07-14 06:53] LABS: CREATININE, serum 0.69 mg/dL (0.57-1.11); POTASSIUM 3.6 mmol/L (3.5-4.5)
[2021-07-14 07:39] VITALS: BP 129/86; PULSE 107; TEMP 97.9
[2021-07-14 08:15] LABS: BAND 11 % (0-10); EOSINOPHIL 5 % (0-4); LYMPHOCYTE 21 % (20.0-51.0); METAMYELOCYTE 4 % (0-0); NEUTROPHILS 51 % (42.0-75.2)
[2021-07-14 08:16] LABS: PLATELET ESTIMATE NORMAL (NORMAL)
--- NOTE | 2021-07-14 08:20 | NUR ---
pt laying supine in bed on room air. pt states that she is having some pain and nausea. requesting medication. medications were given. ng tube is intact and on intermittent suction with green drainage. pts abd midline incision is having a lot of red drainage. also punture site to right is draining. pt states no needs at this time. call light is within reach.
[2021-07-14 11:27] LABS: MAGNESIUM 1.5 mg/dL (1.6-2.6)
[2021-07-14 12:11] VITALS: BP 139/85; PULSE 106; TEMP 98.5
[2021-07-14 16:08] VITALS: BP 134/80; PULSE 123; TEMP 98.1
--- NOTE | 2021-07-14 18:45 | NUR ---
PT LAYING SUPINE IN BED. NG TUBE HAS BEEN CLAMPED ALL DAY FOR STUDY.PT IS REQUESTING THAT IT BE HOOKED BACK UP BECAUSE SHE IS HAVING SOME NAUSEA. NG WAS TURNED ONTO INTERMITTENT SUCTION. MIDLINE ABD INCISION IS DRAINGING AND RIGHT PUNTURE SITE. BOTH AREAS HAVE ABDS ON. ABD BINDER WAS ALSO APPLIED PER DR ORDER. PT STATES NO NEEDS AT THIS TIME. CALL LIGHT IS WITHIN REACH.
[2021-07-14 20:26] VITALS: BP 124/90; PULSE 115; TEMP 98.1
[2021-07-15 00:14] VITALS: BP 109/67; PULSE 117; TEMP 98.3
[2021-07-15 03:35] VITALS: BP 115/64; PULSE 117; TEMP 98.4
[2021-07-15 06:10] LABS: HEMATOCRIT 38.4 % (37.0-47.0); HEMOGLOBIN 12.4 g/dl (12.5-16.0); MEAN CELL VOLUME 101 fl (80.0-100.0); MEAN CORPUSCULAR HEMOGLOBIN 33 pg (27-31); MEAN CORPUSCULAR HGB CONC 32 g/dl (33.0-37.0); MEAN PLATELET VOLUME 10.2 fl (7.4-10.4); RED BLOOD COUNT 3.81 M/mm3 (4.10-5.30); REDCELL DISTRIBUTION WIDTH-CV 16.7 % (11.5-14.5)
[2021-07-15 06:16] LABS: PLATELET COUNT 471 K/mm3 (130-400)
[2021-07-15 06:27] LABS: ALBUMIN 2.1 gm/dL (3.5-5.0); BILIRUBIN,TOTAL 0.4 mg/dL (0.2-1.2); CALCIUM 8.6 mg/dL (8.4-10.2); CREATININE, serum 0.74 mg/dL (0.57-1.11); MAGNESIUM 1.6 mg/dL (1.6-2.6); PHOSPHOROUS 3.1 mg/dL (2.3-4.7); POTASSIUM 3.8 mmol/L (3.5-4.5); TOTAL PROTEIN 6.2 gm/dL (6.2-8.1)
[2021-07-15 07:20] LABS: BAND 2 % (0-10); EOSINOPHIL 4 % (0-4); LYMPHOCYTE 22 % (20.0-51.0); METAMYELOCYTE 1 % (0-0); NEUTROPHILS 57 % (42.0-75.2)
[2021-07-15 07:21] LABS: HYPOCHROMIA 1+; PLATELET ESTIMATE INCREASED (NORMAL); TARGET CELLS 1+
[2021-07-15 07:30] VITALS: BP 142/83; PULSE 123; TEMP 98
--- NOTE | 2021-07-15 07:30 | NUR ---
PT IN BED AT THIS TIME. INT SUCTION TO NG AT 80. CLINAMIX RUNNING INTO PICC. PATIENT LAYING FLAT IN BED. DENIES ANY NAUSEA AT THIS TIME. NO OTHER COCERNS AT THIS TIME.
--- NOTE | 2021-07-15 10:33 | NUR ---
Patient still has n/v/d and NG tube. She is still working with PT/OT. Will most likely need HH services upon discharge.
[2021-07-15 12:41] VITALS: BP 130/89; PULSE 118; TEMP 97.6
[2021-07-15 15:52] VITALS: BP 127/68; PULSE 111; TEMP 97.5
[2021-07-15 20:21] VITALS: BP 131/69; PULSE 117; TEMP 98.1
[2021-07-16] VITALS (7 sets, daily range): BP systolic 114–130; BP diastolic 62–90; PULSE 107–116; TEMP 97.3–98.5
--- NOTE | 2021-07-16 06:00 | NUR ---
PATIENT RESTED QUIETLY IN BED THROUGHOUT THE NIGHT. NG TUBE CLAMPED SINCE 247 WITH NO ISSUES. NO NEW ISSUES NOTED OR REPORTED BY PATIENT.
[2021-07-16 06:25] LABS: HEMOGLOBIN 11.9 g/dl (12.5-16.0); MEAN CELL VOLUME 100 fl (80.0-100.0); MEAN CORPUSCULAR HEMOGLOBIN 33 pg (27-31); MEAN CORPUSCULAR HGB CONC 33 g/dl (33.0-37.0); MEAN PLATELET VOLUME 10.1 fl (7.4-10.4); PLATELET COUNT 387 K/mm3 (130-400); RED BLOOD COUNT 3.66 M/mm3 (4.10-5.30); REDCELL DISTRIBUTION WIDTH-CV 16.4 % (11.5-14.5)
[2021-07-16 06:29] LABS: HEMATOCRIT 36.5 % (37.0-47.0)
--- NOTE | 2021-07-16 06:30 | NUR ---
REPORT RCVD FROM PATRICIA THOMPSON. THE PATIENT IS SLEEPING IN BED AT THIS TIME. WILL RETURN FOR ASSESSMENT AND MORNING MEDICATIONS.
[2021-07-16 06:41] LABS: CALCIUM 8.8 mg/dL (8.4-10.2); CREATININE, serum 0.73 mg/dL (0.57-1.11); MAGNESIUM 1.6 mg/dL (1.6-2.6); PHOSPHOROUS 3.5 mg/dL (2.3-4.7); POTASSIUM 3.4 mmol/L (3.5-4.5)
[2021-07-16 07:03] LABS: BAND 3 % (0-10); EOSINOPHIL 5 % (0-4); METAMYELOCYTE 2 % (0-0); MYELOCYTE 3 % (0-0); NEUTROPHILS 51 % (42.0-75.2)
[2021-07-16 07:05] LABS: HYPOCHROMIA 1+; PLATELET ESTIMATE NORMAL (NORMAL)
[2021-07-16 07:06] LABS: LYMPHOCYTE 25 % (20.0-51.0)
[2021-07-16 08:22] LABS: PATHOLOGY DIFF REVIEW OK
--- NOTE | 2021-07-16 09:00 | NUR ---
REVIEWED ORDER FROM DR. BRUSH, HE PUT IN AN ORDER FOR REMOVAL OF NG TUBE. WILL REMOVE AT THIS TIME.
--- NOTE | 2021-07-16 12:00 | NUR ---
PT HAS HAD EVENTFUL MORNING. DURING AMBULATION THE PATIENT'S ABDOMINAL INCISION LEAKS. DR. BRUSH AWARE, AND STATES TO REINFORCE. REPLACED ABD PAD. PT HAS NO COMPLAINTS AT THIS TIME.
--- NOTE | 2021-07-16 14:59 | NUR ---
The hospitalist would like a referral sent to [facility] on the patient. RANJEET contacted and faxed a referral to Stuart at [facility].
--- NOTE | 2021-07-16 19:00 | NUR ---
THE PATIENT HAS HAD AN EVENTFUL SHIFT. SHE HAS COMPLAINED A LOT OF PAIN AND NAUSEA, HAS ONLY HAD X1 BOUT OF EMESIS. NO OTHER CONCERNS. REPORT GIVEN TO PATRICIA SHI.
--- NOTE | 2021-07-16 20:00 | NUR ---
PATIENT IS A&O. NOTED ELEVATED HR IN THE LOW 100'S ON TELE. DENIES CHEST PAIN OR SOA AT REST. PATIENT REPORTS INTERMITENT ISSUES WITH NAUSEA AND IS GETTING SCHEDULED REGLAN AND PRN ZOFRAN. NG WAS DC'D ON DAY SHIFT. NO NAUSEA AT THIS TIME. PATIENT IS VERY OBESE, SOFT ABD WITH HYPO BOWL SOUNDS. MIDLINE DRESSING NOTED DISTAL DRAINAGE APPROX HALF DOLLAR SIZE. DAY SHIFT REPORTS ISSUES WITH INCISIONAL DRAINAGE THROUGHOUT THE DAY AND CHANGED ABD DRESSING PRN. ABD LAP SITES WITH JJ INTACT. ABD BINDER AT BEDSIDE, PATIENT REFUSING TO WEAR AT BEDTIME. TPN INFUSING INTO RIGHT UPPER ARM PICC. TOLERATING CLEARS. HS MEDS GIVEN WITHOUT ISSUES. PATIENT EMOTIONAL AND TEARFUL AT TIMES. HX OF PSYCH ISSUES AND REPORTS SHE HAS BEEN OFF HER SEROQUIL. HOSPITALIST NOTIFIED BUT UNABLE TO RESUME AT THIS TIME DUE TO SIDE EFFECTS RELATED TO ADMISSION. NOTED BLE AND GENERALIZED EDEMA, SEE SHIFT ASSESSMENT. HEAD TO TOE ASSESSMENT COMPLETE. HS BS WAS 210, INSULIN GIVEN PER ORDERS. NO OTHER NEEDS AT THIS TIME. PATIENT REPOSITIONED TO COMFORT WITH CALL LIGHT IN REACH. LIGHTS TURNED DOWN. PATIENT GOING TO SLEEP.
[2021-07-17 04:14] VITALS: BP 115/67; PULSE 118; TEMP 98.1
[2021-07-17 07:42] LABS: CALCIUM 8.8 mg/dL (8.4-10.2); CREATININE, serum 0.87 mg/dL (0.57-1.11); MAGNESIUM 1.8 mg/dL (1.6-2.6); PHOSPHOROUS 2.7 mg/dL (2.3-4.7); POTASSIUM 3.7 mmol/L (3.5-4.5)
[2021-07-17 08:12] VITALS: BP 139/87; PULSE 120; TEMP 97.9
--- NOTE | 2021-07-17 09:46 | NUR ---
PT C/O ABD PAIN 7/10 AT REST AND 10/10 WITH ACTIVITY. ZOFRAN, MORPHINE, ATIVAN GIVEN PER PT REQUEST. EDUCATED ON IMP OF WEARING ABD BINDER WITH ACTIVITY. ASSESSMENT PERFORMED EARLIER IN SHIFT. SOME DRAINAGE NOTED TO ABD PAD ON ABDOMEN DRESSING. ABD PAD CHANGED, STABLE INTACT TO ABD INCISION. LAP SITES CLOSED AT THIS TIME. NO OTHER NEEDS
[2021-07-17 11:00] VITALS: BP 107/70; PULSE 115; TEMP 98.7
[2021-07-17 16:17] VITALS: BP 125/70; PULSE 113; TEMP 98.9
--- NOTE | 2021-07-17 17:27 | NUR ---
UPON ENTERING ROOM FOR SCHEDULED MEDICATIONS PT WAS REQUESTING PAIN, ANXIETY AND NAUSEA MEDICATIONS. PT RATED PAIN 7/10 IN ABD. LEFT TO GET REQUESTED MEDICATIONS AND ENTERED PT ROOM AND PT WAS SLEEPING. MEDICATIONS GIVEN ONCE PT WOKE UP, OWEN HUIZAR NOTIFIED AND DIFFERENT PAIN MEDICATION ORDERED. TPN INFUSING, CAPS ON PICC LINE CHANGED.
[2021-07-17 19:48] VITALS: BP 123/72; PULSE 113; TEMP 98.3
[2021-07-18 00:08] VITALS: BP 133/80; PULSE 110; TEMP 98.2
[2021-07-18 04:04] VITALS: BP 117/71; PULSE 107; TEMP 98.2
[2021-07-18 06:50] LABS: HEMOGLOBIN 11.4 g/dl (12.5-16.0); MEAN CELL VOLUME 103 fl (80.0-100.0); MEAN CORPUSCULAR HEMOGLOBIN 33 pg (27-31); MEAN CORPUSCULAR HGB CONC 32 g/dl (33.0-37.0); MEAN PLATELET VOLUME 10.2 fl (7.4-10.4); PLATELET COUNT 447 K/mm3 (130-400); RED BLOOD COUNT 3.42 M/mm3 (4.10-5.30); REDCELL DISTRIBUTION WIDTH-CV 16.3 % (11.5-14.5)
[2021-07-18 07:13] LABS: HEMATOCRIT 35.2 % (37.0-47.0)
[2021-07-18 07:17] LABS: CALCIUM 8.4 mg/dL (8.4-10.2); CREATININE, serum 0.96 mg/dL (0.57-1.11); MAGNESIUM 1.9 mg/dL (1.6-2.6); PHOSPHOROUS 2.5 mg/dL (2.3-4.7)
[2021-07-18 07:43] VITALS: BP 105/65; PULSE 109; TEMP 97.8
[2021-07-18 08:10] LABS: BAND 17 % (0-10); EOSINOPHIL 2 % (0-4); LYMPHOCYTE 21 % (20.0-51.0); METAMYELOCYTE 5 % (0-0); MYELOCYTE 1 % (0-0); NEUTROPHILS 34 % (42.0-75.2); NUCLEATED RED BLOOD CELL 1 (0-6)
[2021-07-18 08:11] LABS: PLATELET ESTIMATE INCREASED (NORMAL)
[2021-07-18 08:20] LABS: PATHOLOGY DIFF REVIEW OK +
--- NOTE | 2021-07-18 09:54 | NUR ---
Patient accepted to [facility] for admit today. Patient, patient's mother froilan, PATRICIA and hospitalist notified. Stuart with [facility] states that he is unable to make it up here to meet with the patient today. This SW facilitated phone call between the patient and Stuart. Patient visually becomes upset stating that "i have to be away from my mom". Emotional support provided. Patient's clinical updates and DC orders faxed to Stuart. EMS transfer arranged for 1030 this morning. Signed forms left on the front of the patient's chart. DC plan: [facility]- @1030
--- NOTE | 2021-07-18 10:30 | NUR ---
GAVE PT ROXICODONE FOR PAIN PER REQUEST, ATIVAN GIVEN, ASSESSMENT PERFORMED, ABD DRESSING REDRESSED, BRIGHT RED BLOOD PRESENT ON OLD DRESSING. SITE CLEANED WITH STERILE WATER, JJ INTACT ON SITE, DRESSED WITH KEFLEX, ABD AND GAUZE.
--- NOTE | 2021-07-18 11:36 | NUR ---
PT C/O ANXIETY, ASKED DR. CHRISTENSEN ABOUT ANXIETY MEDICATION, DENIED PT REQUEST. PAIN MEDICATION GIVEN PER REQUEST, TOO EARLY FOR NAUSEA MEDICATIONS AT THIS TIME
[2021-07-18 11:49] VITALS: BP 95/65; PULSE 114; TEMP 98.3
--- NOTE | 2021-07-18 12:00 | NUR ---
DRESSING CHANGE APPLIED TO ABD. PT HAVING BRIGHT RED DRAINAGE, NONADHERENT PAD, ABD AND GAUZE APPLIED TO MIDLINE SITE
--- NOTE | 2021-07-18 15:19 | NUR ---
transit survey worker contacted by Stuart at [facility]. Due to staffing shortages, they are unable to take this patient today but will be able to accept this patient for admission tomorrow. Stuart asks is [facility] can be arranged for 170 on Wednesday 07/19. Patient's RN and physician notified of the above. [facility] contacted and arrangement made for 1700 0n 07/19. Patient's RN updated patient. Patient will need updated EMS forms. Accepting physician: Dr. Zayas RN to RN #: [phone] Discharge Plan: [facility] 07/19 @1700
[2021-07-18 16:57] VITALS: BP 126/60; PULSE 105; TEMP 97.8
--- NOTE | 2021-07-18 17:43 | NUR ---
PT ANXIOUS ABOUT DISCHARGE, ALL MEDS GIVEN, NO OTHER NEEDS
[2021-07-18 19:51] VITALS: BP 107/65; PULSE 107; TEMP 98.2
--- NOTE | 2021-07-19 00:03 | NUR ---
Pt alert and oriented this evening. Reports continuous pain in her abdomen "all over". States she also feels nauseated, but is not able to throw up. Pt has had no vomit yet on the shift. Pt requested something for pain, nausea, and asked for prn ativan. Administered evening medications as ordered, with education and also administered prn morphine, prn zofran, and prn ativan. Pt later requested remeron for sleep. I notified the provider who ordered the medication and I administered as ordered. Pt states she still feels nauseated and in pain after zofran and pain medication. Encouraged pt to reposition in bed. Shift assessment performed. Noted multiple incision sites on pt's abdomen. One long incision covered with an abd dressing and 2 small laproscoptic sites with casa. The small laproscopic sites appear clean and dry. The long incision site had drainage coming through the dressing. I completed a prn dressing change and applied new non-adherent pads, an abd pad, one gauze, and tape. Long incision site does not appear to be red or edematous. Vital signs are stable. HR is sinus tach. BP was softer at 107 systolic, but pt denies dizziness or SOB. Pt tolerating clear liquids. Pt reports no questions. No current concerns, will continue to monitor. Blood sugar was 195 earler this evening.
[2021-07-19 00:43] VITALS: BP 116/67; PULSE 102; TEMP 97.3
[2021-07-19 04:58] VITALS: BP 119/73; PULSE 103; TEMP 97.4
--- NOTE | 2021-07-19 04:58 | NUR ---
Pt had an uneventful night. Remained alert and oriented. Resting currently. Remeron appeared to help her get some sleep. Pt still complains of abdominal pain/nausea. No vomiting overnight. Vital signs remain stable. HR remains in the low 100's, sinus tach. Medications administered per orders. Last blood sugar around 0000 was 188. Pt continuing on TPN and tolerating clear liquids. Pt reports no questions at this time. Will continue to monitor, no new concerns.
--- NOTE | 2021-07-19 07:33 | NUR ---
PATIENT SLEEPING IN BED, TPN PAUSED FOR LAB DRAW. WILL REASSESS.
[2021-07-19 07:50] VITALS: BP 121/54; PULSE 101; TEMP 97.8
[2021-07-19 07:56] LABS: MAGNESIUM 1.7 mg/dL (1.6-2.6); PHOSPHOROUS 3.1 mg/dL (2.3-4.7)
[2021-07-19 11:40] VITALS: BP 119/77; PULSE 107; TEMP 97.9
--- NOTE | 2021-07-19 12:47 | NUR ---
PATIENT RESTING IN BED, C/O 8(10) PAIN IN ABDOMEN. DRESSING INTACT, REMOVED, SMALL AMOUNT OF SANGINOUS DRAINAGE ON DRESSING. JJ STILL INTACT. INCISION APPROXIMATED, SOME REDNESS NOTED. LAP SITES INTACT, UPPER LEFT AND LOWER RIGHT STILL WITH JJ PRESENT. DRESSING REPLACED WITH NON-ADHERENT PAD, AND ADB PAD TAPED. PICC LINE ASSESSED, TPN RUNNING AT 52ML/HR. PAIN MEDS AND ATIVAN ADMINISTERED PER PATIENT REQUEST. PATIENT AMBULATED WITH 1 ASSIST TO BATHROOM, WITH 4W ROLLING WALKER. INSTRUCTED TO USE CALL LION BEFORE AMBULATING BACK TO BED.
--- NOTE | 2021-07-19 15:18 | NUR ---
RANJEET informed that patient would be discharging on this day from facility to [facility]. Transfer documentation filled out, signed by physician, copies placed in chart and faxed to facility. [facility] staff contacted to confirm that patient would be picked up at 5pm on this day. House nurse, and floor nurse informed of receiving and number to call for report. Nothing further
[2021-07-19 15:23] VITALS: BP 114/87; PULSE 109; TEMP 97.9
--- NOTE | 2021-07-19 17:17 | NUR ---
PATIENT PACKED AND READY FOR TRANSPORT TO [facility]. IV ATIVAN GIVEN AT TIME OF [facility] RAILCAR. PATIENT IN EMOTIONAL DISTRESS, NERVOUS AND ANXIOUS ABOUT DISTANCE FROM FAMILY. PAIN RATING A 9 OF 10 IN ABD. IV MORPHINE GIVEN AT 1600, IV ZOFRAN ALSO GIVEN AT 1600. 6 UNITS INSULIN GIVEN AT 1700 AT [facility]. HANDOFF GIVEN TO EMS. ATTEMPTED TO CALL REPORT AT 1705, WAS INFORMED ACCEPTING RN WILL CALL BACK.
--- NOTE | 2021-07-19 18:17 | NUR ---
report called to [facility] foam cutting supervisor Nick Marks.
== END 2021-07-19 17:00 | DRG 982 ==
LOC: COL.ER 18:52 → MEDICAL 21:01
PROVIDERS: Physician Assistant; Student in an Organized Health Care Education/Training Program; Surgery; ADMIT Internal Medicine
PROC: 0DJD0ZZ Inspection of Lower Intestinal Tract, Open Approach (ICD-10-PCS; principal; 2021-07-08 16:15)
PROC: 02HV33Z Insertion of Infusion Device into Superior Vena Cava, Percutaneous Approach (ICD-10-PCS; 2021-07-10)
DX: E11.43 Type 2 diabetes mellitus with diabetic autonomic (poly)neuropathy (principal); E66.2 Morbid (severe) obesity with alveolar hypoventilation; N17.9 Acute kidney failure, unspecified; Z68.43 Body mass index [BMI] 50.0-59.9, adult; R18.8 Other ascites; K63.89 Other specified diseases of intestine; M79.7 Fibromyalgia; F25.9 Schizoaffective disorder, unspecified; I10 Essential (primary) hypertension; E78.5 Hyperlipidemia, unspecified; G43.909 Migraine, unspecified, not intractable, without status migrainosus; F31.9 Bipolar disorder, unspecified; F41.1 Generalized anxiety disorder; D64.9 Anemia, unspecified; E11.65 Type 2 diabetes mellitus with hyperglycemia; D75.839 Thrombocytosis, unspecified; K21.9 Gastro-esophageal reflux disease without esophagitis; J45.909 Unspecified asthma, uncomplicated; G89.29 Other chronic pain; K52.9 Noninfective gastroenteritis and colitis, unspecified; K31.84 Gastroparesis; E87.6 Hypokalemia; E83.42 Hypomagnesemia; E83.39 Other disorders of phosphorus metabolism; Z86.711 Personal history of pulmonary embolism; Z79.84 Long term (current) use of oral hypoglycemic drugs; Z79.52 Long term (current) use of systemic steroids; Z99.81 Dependence on supplemental oxygen
CPT/HCPCS: OP; 99232-AI; 99233-AI; 99239; A4217; A9284; C1751; C9113; J0690; J1100; J1170; J1644; J1720; J1815; J2060; J2270; J2405; J2543; J2550; J2704; J2765; J2795; J3010; J3411; J3475; J3480; J7030; J7050; J7512; Q9967

== ENCOUNTER 2021-10-28 13:51 | Emergency (ER) | payer MEDICAID ==
[~2021-10-28] VITALS: Ht 157.5 cm; Wt 132.7 kg
[2021-10-28 17:00] VITALS: BP 130/89; PULSE 113; TEMP 99.1
== END 2021-10-28 17:10 | disposition home or self-care (01) ==
LOC: COL.ER 13:51
DX: K31.84 Gastroparesis (principal); Z87.891 Personal history of nicotine dependence; Z90.49 Acquired absence of other specified parts of digestive tract; Z79.891 Long term (current) use of opiate analgesic; Z79.899 Other long term (current) drug therapy
CPT/HCPCS: J1170; J2270; J7030

== ENCOUNTER → 2021-11-18 | Outpatient (CLI) | payer MEDICAID | LOC: MHCPAIN 14:23 | DX: M79.18 Myalgia, other site (principal); M54.50 Low back pain, unspecified; M54.6 Pain in thoracic spine | CPT/HCPCS: G0463; J1040 ==

== ENCOUNTER 2022-05-14 08:38 | Outpatient (CLI) | payer MEDICAID ==
[~2022-05-14 08:38] MED LIST changes: +ERY-TAB250 MG PO; +IMITREX 25MG TA25 MG PO; +IMITREX50 MG PO; +PROTONIX 40MG T40 MG PO; +REGLAN 10MG10 MG/TAB PO; +ROZEREM 8MG TABL8 MG PO; +RT ADVAIR 128 DISKUS IH; +SEROQUEL 1100 MG/TAB PO; +[UNRECOGNIZED DRUG - CODE] SQ; +[UNRECOGNIZED DRUG - OTHER] PO
[2022-05-14 09:01] VITALS: BP 105/72; PULSE 95; TEMP 97.6
[2022-05-14] MEDS ORDERED: RT SPIRIVA18 MCG IH (09:15)
[2022-05-14] MEDS ORDERED: PROTONIX 40MG T40 MG PO (09:16)
[2022-05-14] MEDS ORDERED: PROZAC 20MG20 MG PO (09:19)
[2022-05-14] MEDS ORDERED: COLESTID 1GM1 G PO (09:21)
[2022-05-14] MEDS ORDERED: BUMEX2 MG PO (09:21)
[2022-05-14] MEDS ORDERED: IMITREX ST4 MG/0.5 M SQ (09:26)
[2022-05-14] MEDS ORDERED: CHANTIX 1MG1 MG PO (09:28)
[2022-05-14] MEDS ORDERED: REGLAN 10MG10 MG/TAB PO (09:28)
[2022-05-14] MEDS ORDERED: ZOFRAN8 MG PO (09:28)
--- NOTE | 2022-05-14 09:40 | NUR ---
Pt exits dept with steady gait. IV site was wrapped with coban. She tolerated infusion without issue.
== END 2022-05-14 09:41 | disposition home or self-care (01) ==
LOC: EUO 08:38
DX: M81.0 Age-related osteoporosis without current pathological fracture (principal)
CPT/HCPCS: J3489

== ENCOUNTER → 2022-06-17 | Outpatient (CLI) | payer MEDICAID ==
[~2022-06-17] MED LIST changes: +COLESTID 1GM1 G PO
== END ==
LOC: MHCPAIN 10:17
DX: M79.18 Myalgia, other site (principal); M54.50 Low back pain, unspecified; M54.6 Pain in thoracic spine
CPT/HCPCS: J1040

== ENCOUNTER → 2022-07-21 | Outpatient (CLI) | payer MEDICAID | LOC: COL.RAD 12:17 | DX: K43.2 Incisional hernia without obstruction or gangrene (principal); K76.0 Fatty (change of) liver, not elsewhere classified; Z90.49 Acquired absence of other specified parts of digestive tract ==

== ENCOUNTER → 2022-07-29 | Outpatient (CLI) | payer MEDICAID | LOC: MHCPAIN 10:07 | DX: M47.896 Other spondylosis, lumbar region (principal); M54.16 Radiculopathy, lumbar region; M79.18 Myalgia, other site | CPT/HCPCS: G0463 ==